=== PATIENT | female | born 1990 | race Caucasian/White ===

== ENCOUNTER 2019-07-16 08:35 | Emergency (ER) | payer OTHER, SELFPAY ==
--- NOTE | ~2019-07-16 | US_ITS ---
EXAMINATION: US OB <=14 wk fetus w TV DATE: 07/16/2019 10:14 INDICATION: Lower abdominal pain TECHNIQUE: Real-time transabdominal and transvaginal obstetric ultrasound. FINDINGS: No prior studies for comparison. The uterus measures 7.8 x 4.7 x 4.8 cm.. There is an intrauterine gestational sac, with pole id entified. The crown rump length measures 1.42 cm, which correlates with a estimated gestational age of 6 weeks 1 day. heart tones are identified measuring 114 BPM.there is a small subchorionic hemorrhage measuring 2.3 x 1 x 0.3 cm. IMPRESSION: 1. SL IUP with an EGA of 6 weeks, 1 days (EDC by current ultrasound of 03/09/2020). 2: Small subchorionic hemorrhage. Reviewed, dictated and finalized at location A. IMPRESSION: 1. SL IUP with an EGA of 6 weeks, 1 days (EDC by current ultrasound of 03/09/20 20). 2: Small subchorionic hemorrhage.
[2019-07-16 08:47] VITALS: BP 150/88; PULSE 115; RESP 20; TEMP 36.7; O2SAT 100
--- NOTE | 2019-07-16 09:04 | ED.PREGNANCY ---
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 cramping Time Seen by Provider: 07/16/19 08:47 Source: patient Mode of arrival: ambulatory Limitations: no limitations History of Present Illness HPI Narrative: A 28 y/o female presents to the ED with c/o possible . Pt states that she took 3 tests yesterday and they all came back positive. Her LNMP was on 06/20/19. She notes that for the last month she has had severe diffuse ABD cramping that is most intense in her right side. Pt has not had an DIGITAL SALES EXECUTIVE appointment, but the patient has seen Dr. Whittington previously and has plans to make an appointment with her. She reports vaginal discharge, breast tenderness, breast swelling, and N/V, but denies vaginal bleeding, sore throat, rhinorrhea, cough, and congestion. The vaginal discharge is described as clear. She is 1 Para 0. Complaint: other (possible ) Onset (ago): month(s) (1) Pain Consistency: constant Location: abdomen Severity: severe Quality: Cramping Associated symptoms: nausea, vomiting, vaginal discharge (clear), abdominal pain (severe cramping) and other (breast tenderness, breast swelling) Vaginal discharge: clear Vaginal bleeding: none Date of Last Menstrual Period: 06/20/19 Patient : Yes Related Data : 1 Para: 0 Home Medications Medication Instructions Recorded Confirmed No Home Medications 07/16/19 07/16/19 Allergies Allergy/AdvReac Type Severity Reaction Status Date / Time sulfamethoxazole Allergy Unknown Rash Verified 07/16/19 08:54 trimethoprim Allergy Unknown Rash Verified 07/16/19 08:54 Review of Systems Review of Systems: All systems reviewed & are unremarkable except as noted in HPI and below ENT: Denies nasal congestion, Denies nasal discharge and Denies sore throat Respiratory: Respiratory: Denies cough Gastrointestinal: Gastrointestinal: Reports abdominal pain (severe cramping), Reports nausea and Reports vomiting Genitourinary: Genitourinary: Denies abnormal vaginal bleeding and Reports vaginal discharge (clear) Integumentary/Breasts: Skin/Breast: Reports breast swelling and Reports breast pain PMFSH Past Medical History Medical History (Updated 07/16/19 @ 11:03 by Maame Hope MD) Sphincter of Oddi dysfunction Surgical History Surgical History (Updated 07/16/19 @ 09:06 by Rosa Callahan) History of biliary duct stent placement History of cholecystectomy Social History Social History (Updated 07/16/19 @ 09:06 by Rosa Callahan) Gender identity (if verbalized by the patient): Female Exam Const: General: cooperative, no acute distress and alert Nutritional Appearance: well nourished Orientation/consciousness: patient oriented x3 Limitations: no limitations HENMT: Mouth: Yes lip normal and Yes moist mucous membranes Resp: Effort & Inspection: normal respiratory effort Auscultation: clear to auscultation bilaterally Cardio: Rate: regular rate Rhythm: regular rhythm GI: GI Palp: Yes Soft to palpation and Yes Tenderness to palpation present (GI) (mild suprapubic) Auscultation: normal bowel sounds : OB/external & speculum: Deferred OB/external & speculum exam Skin: General skin exam: normal color Neuro: General: patient oriented x3 Cognition (Neuro): normal cognition Speech: normal speech Extrem: General: normal to inspection, full ROM and no clubbing, cyanosis or edema Psych: Mental Status: mental status grossly normal Affect: normal affect Attitude: cooperative Course Course Emergency Course: Patient presents with pelvic cramping and positive test. Exam benign aside from mild suprapubic tenderness. Patient with findings of intrauterine and small subchorionic hematoma. Patient advised to follow-up with DIGITAL SALES EXECUTIVE for further care. Vital Signs Vital signs: Vital Signs Temperature 98.1 F 07/16/19 08:47 Pulse Rate 115 H 07/16/19 08:47 Respiratory
[2019-07-16 09:11] LABS: Add Urine Microscopic? YES; Appearance Urine Cloudy (Clear); Bacteria Urine Trace /hpf; Bilirubin Urine Negative (Negative); Blood Urine Negative (Negative); Color Urine Yellow (Yellow); Glucose Urine UA Negative (Negative); Ketones Urine Negative (Negative); Leukocyte Esterase Ur Trace LEU/UL (Negative); Mucus Urine Few /lpf; Nitrate Urine Negative (Negative); Protein Urine 1+ mg/dL (Negative); Squamous Epithelial Cell Urine Many /hpf (Few); Urobilinogen Urine Negative mg/dL (<2.0)
[2019-07-16 09:14] LABS: Specific Grav Ur 1.034 (1.001-1.035)
[2019-07-16 09:22] LABS: Basophils Percent Auto 0.2 % (0.2-1.2); Eosinophils Percent Auto 0.1 % (0-4.4); Hematocrit 39.6 % (37.0-47.0); Hemoglobin 13.5 g/dL (12.0-15.0); Immature Granulocyte Absolute 0.05 K/mm3 (0.00-0.031); Immature Granulocyte Percent A 0.3 % (0-0.5); Lymphocytes Absolute Auto 1.36 K/mm3 (0.9-3.2); Lymphocytes Percent Auto 9.1 % (18.3-44.2); Mean Corpuscular HGB Conc 34.1 g/dl (32-36); Mean Corpuscular Hemoglobin 30.8 pg (26-34); Mean Corpuscular Volume 90.2 fl (80-100); Mean Platelet Volume 9.9 fl (7.4-10.4); Monocytes Absolute Auto 0.5 K/mm3 (0.1-0.6); Monocytes Percent Auto 3.5 % (2.6-8.5); Neutrophils Percent Auto 86.8 % (45.5-73.1); Platelet Count Result 268 k/mm3 (150-375); Red Blood Count 4.39 M/mm3 (4.2-5.4); Red Cell Distribution Width 11.9 % (11.5-14.5)
[2019-07-16 11:24] VITALS: BP 133/68; PULSE 92; RESP 19; O2SAT 100
== END 2019-07-16 11:24 | disposition home or self-care (01) ==
PROVIDERS: Emergency Provider Emergency Medicine; PCP Family Medicine
DX: O46.8X1 Other antepartum hemorrhage, first trimester (principal); Z3A.01 Less than 8 weeks gestation of pregnancy
CPT/HCPCS: 36415; 76801; 76817; 81001; 81025; 84702; 85025; 86850; 86900; 86901; 99284

== ENCOUNTER 2019-09-12 14:56 | Emergency (ER) | payer OTHER, SELFPAY ==
[2019-09-12 15:04] VITALS: BP 141/90; PULSE 113; RESP 16; TEMP 36.9; O2SAT 96
[2019-09-12 15:22] LABS: Basophils Percent Auto 0.1 % (0.2-1.2); Hematocrit 37.4 % (37.0-47.0); Hemoglobin 13.3 g/dL (12.0-15.0); Immature Granulocyte Absolute 0.08 K/mm3 (0.00-0.031); Immature Granulocyte Percent A 0.4 % (0-0.5); Lymphocytes Absolute Auto 1.98 K/mm3 (0.9-3.2); Lymphocytes Percent Auto 9.4 % (18.3-44.2); Mean Corpuscular HGB Conc 35.6 g/dl (32-36); Mean Corpuscular Hemoglobin 31.5 pg (26-34); Mean Corpuscular Volume 88.6 fl (80-100); Mean Platelet Volume 10.2 fl (7.4-10.4); Monocytes Absolute Auto 0.8 K/mm3 (0.1-0.6); Monocytes Percent Auto 3.6 % (2.6-8.5); Neutrophils Absolute Auto 18.2 K/mm3 (1.3-6.7); Neutrophils Percent Auto 86.5 % (45.5-73.1); Platelet Count Result 257 k/mm3 (150-375); Red Blood Count 4.22 M/mm3 (4.2-5.4); Red Cell Distribution Width 12.2 % (11.5-14.5); White Blood Count 21.1 K/mm3 (4.5-10.0)
[2019-09-12 15:34] LABS: Alanine Aminotransferase 17 U/L (4-35); Albumin Level 4.3 g/dL (3.5-5.1); Alkaline Phosphatase 75 U/L (38-126); Aspartate Amino Transferase 22 U/L (14-36); Bilirubin,Total 0.3 mg/dL (0.2-1.3); Blood Urea Nitrogen 7 mg/dL (7-17); Calcium 8.9 mg/dL (8.4-10.2); Carbon Dioxide 21 mmol/L (22-30); Chloride 101 mmol/L (98-107); Estimated CRCL calculation 116 ml/min; Estimated Glomerular Filt Rate > 60; Glucose 93 mg/dL (65-105); Lipase 67 U/L (23-300); Potassium 3.3 mmol/L (3.4-5.0); Sodium 133 mmol/L (137-145)
[2019-09-12] MEDS: DEXTROSE 5%/LACTATED RINGERS 1,000 ML 100 ML IV CONT (15:37)
[2019-09-12] MEDS: PROCHLORPERAZINE EDISYLATE 10 MG/2 ML VIAL IV PUSH (15:38)
[2019-09-12] MEDS: FAMOTIDINE 20 MG/2 ML VIAL IV PUSH (15:38)
[2019-09-12 15:41] LABS: Add Urine Microscopic? YES; Appearance Urine Cloudy (Clear); Bacteria Urine 1+ /hpf; Bilirubin Urine Negative (Negative); Blood Urine Negative (Negative); Color Urine Yellow (Yellow); Glucose Urine UA Negative (Negative); Ketones Urine 2+ mg/dL (Negative); Leukocyte Esterase Ur 2+ LEU/UL (Negative); Mucus Urine Heavy /lpf; Nitrate Urine Negative (Negative); Protein Urine 2+ mg/dL (Negative); Renal Epithelial Cells Urine Rare /hpf (None Seen); Specific Grav Ur 1.026 (1.001-1.035); Squamous Epithelial Cell Urine Many /hpf (Few)
--- NOTE | 2019-09-12 15:59 | ED.GENADULT ---
HPI - General Adult General Chief complaint: Nausea/Vomiting/Diarrhea <Erasto Beasley PA-C - Last Filed: 09/12/19 16:15> Stated complaint: , vomiting <Erasto Beasley PA-C - Last Filed: 09/12/19 16:15> Time Seen by Provider: 09/12/19 15:10 <Erasto Beasley PA-C - Last Filed: 09/12/19 16:15> Source: patient <Erasto Beasley PA-C - Last Filed: 09/12/19 16:15> Mode of arrival: ambulatory <Erasto Beasley PA-C - Last Filed: 09/12/19 16:15> Limitations: no limitations <Erasto Beasley PA-C - Last Filed: 09/12/19 16:15> History of Present Illness HPI narrative: Patient is a 28-year-old female who presents with nausea and vomiting that is been present for the last several days noting that she cannot keep anything down despite the Zofran prescribed by her farm crops teacher noting she is 14 weeks per ultrasound is followed by Dr. Tonya Bruce. Patient is G1, P0. Patient denies any pain on arrival specifically no pelvic pain cramping vaginal bleeding or discharge. Patient has seen Dr. Tonya Bruce for this was prescribed Zofran. Patient presents per private vehicle <Erasto Beasley PA-C - Last Filed: 09/12/19 16:15> Related Data Home medications: Home Medications Medication Instructions Recorded Confirmed 1 tablet PO DAILY 09/12/19 ondansetron HCl 4 mg PO DAILY 09/12/19 <Erasto Beasley PA-C - Last Filed: 09/12/19 16:15> Allergies/adverse reactions: Allergies Allergy/AdvReac Type Severity Reaction Status Date / Time sulfamethoxazole Allergy Unknown Rash Verified 07/16/19 08:54 trimethoprim Allergy Unknown Rash Verified 07/16/19 08:54 <Erasto Beasley PA-C - Last Filed: 09/12/19 16:15> Review of Systems Review of Systems: All systems reviewed & are unremarkable except as noted in HPI and below <Erasto Beasley PA-C - Last Filed: 09/12/19 16:15> PMFSH Past Medical History Medical History: Medical History Sphincter of Oddi dysfunction <Erasto Beasley PA-C - Last Filed: 09/12/19 16:15> Surgical History Surgical History: Surgical History History of biliary duct stent placement History of cholecystectomy <Erasto Beasley PA-C - Last Filed: 09/12/19 16:15> Social History Social History: Social History Gender identity (if verbalized by the patient): Female <Erasto Baesley PA-C - Last Filed: 09/12/19 16:15> Exam Narrative: Exam Narrative: GENERAL: Well-appearing, well-nourished, and in no acute distress. HEAD: Normocephalic, atraumatic. EYES: PERRLA and EOMI. ENT: Nares clear, no rhinorrhea or epistaxis. Mucous membranes moist. CHEST: Clear to auscultation. No respiratory distress. No wheezes rales or rhonchi HEART: Regular rate and rhythm. No murmur heard. Normal peripheral pulses. ABDOMEN: Soft, nontender, nondistended EXTREMITIES: Normal range of motion. No edema. SKIN: Warm, dry, no rash. NEURO: No focal deficits. Alert and oriented x3. Cranial nerves II through XII grossly intact PSYCH: Normal mood and affect. <Erasto Beasley PA-C - Last Filed: 09/12/19 16:15> Course Course Emergency Course: Patient in the room in no distress aware of case findings treatment plan and diagnosis agreeing to follow-up as directed or to return if symptoms worsen or concerns <Erasto Beasley PA-C - Last Filed: 09/12/19 16:15> Consultations Consultation #1: Spoke with Dr. Donohue PASTE UP ARTIST who will follow patient in clinic <Erasto Beasley PA-C - Last Filed: 09/12/19 16:15> Date: 09/12/19 <Erasto Beasley PA-C - Last Filed: 09/12/19 16:15> Time: 16:14 <Erasto Beasley PA-C - Last Filed: 09/12/19 16:15> Vital Signs Vital signs: Vital Signs Temperature 36.9 C 09/12/19 15:04 Pulse Rate 113 H
== END 2019-09-12 16:18 | disposition left against medical advice (07) ==
PROVIDERS: Emergency Medicine Emergency Medical Services; Emergency Provider Emergency Medicine; PCP Family Medicine
DX: O99.282 Endocrine, nutritional and metabolic diseases complicating pregnancy, second trimester (principal); E86.0 Dehydration; O21.9 Vomiting of pregnancy, unspecified; Z3A.14 14 weeks gestation of pregnancy
CPT/HCPCS: 36415; 80053; 81001; 83690; 85025; 87086; 87088; 96361; 96374; 96375; 99284; J0780; J1200; J7121

== ENCOUNTER 2020-02-07 13:53 | Outpatient (RCR) | payer OTHER, SELFPAY ==
[2019-12-29] MEDS: RHO(D) IMMUNE GLOBULIN 300 MCG SYRINGE IM (16:34)
[2020-01-19 10:49] VITALS: BP 117/77; PULSE 96
[2020-01-26 16:59] VITALS: BP 111/85; PULSE 80
[2020-02-02 16:12] VITALS: BP 122/82; PULSE 94
[2020-02-07 14:29] LABS: Basophils Percent Auto 0.3 % (0.2-1.2); Eosinophils Percent Auto 0.2 % (0-4.4); Hematocrit 35.5 % (37.0-47.0); Hemoglobin 12.2 g/dL (12.0-15.0); Immature Granulocyte Absolute 0.16 K/mm3 (0.00-0.031); Immature Granulocyte Percent A 1.1 % (0-0.5); Lymphocytes Absolute Auto 1.74 K/mm3 (0.9-3.2); Lymphocytes Percent Auto 12.2 % (18.3-44.2); Mean Corpuscular HGB Conc 34.4 g/dl (32-36); Mean Corpuscular Volume 90.3 fl (80-100); Mean Platelet Volume 11.8 fl (7.4-10.4); Monocytes Absolute Auto 0.5 K/mm3 (0.1-0.6); Monocytes Percent Auto 3.4 % (2.6-8.5); Neutrophils Absolute Auto 11.8 K/mm3 (1.3-6.7); Neutrophils Percent Auto 82.8 % (45.5-73.1); Platelet Count Result 230 k/mm3 (150-375); Red Blood Count 3.93 M/mm3 (4.2-5.4); Red Cell Distribution Width 13.4 % (11.5-14.5); White Blood Count 14.2 K/mm3 (4.5-10.0)
[2020-02-07 14:43] LABS: Alanine Aminotransferase 40 U/L (4-35); Albumin Level 3.3 g/dL (3.5-5.1); Alkaline Phosphatase 281 U/L (38-126); Anion Gap 9 mmol/L (8-16); Aspartate Amino Transferase 30 U/L (14-36); Bilirubin,Total 0.2 mg/dL (0.2-1.3); Blood Urea Nitrogen 7 mg/dL (7-17); Calcium 8.8 mg/dL (8.4-10.2); Carbon Dioxide 20 mmol/L (22-30); Chloride 107 mmol/L (98-107); Estimated Glomerular Filt Rate > 60; Glucose 114 mg/dL (65-105); Potassium 3.9 mmol/L (3.4-5.0); Sodium 136 mmol/L (137-145); Uric Acid 4.8 mg/dL (2.5-7.5)
[2020-02-07 14:46] LABS: Add Urine Microscopic? YES; Amorphous Sediment Urine Few; Appearance Urine Cloudy (Clear); Bacteria Urine Trace /hpf; Bilirubin Urine Negative (Negative); Blood Urine Negative (Negative); Color Urine Yellow (Yellow); Creatinine Urine 85.8 mg/dL; Glucose Urine UA Negative (Negative); Ketones Urine Negative (Negative); Leukocyte Esterase Ur Trace LEU/UL (NEGATIVE); Mucus Urine Rare /lpf; Nitrate Urine Negative (Negative); Protein Urine Negative (Negative); RBC Urine 0-2 /hpf (0-2); Specific Grav Ur 1.014 (1.001-1.035); Squamous Epithelial Cell Urine Moderate /hpf (Few); Total Protein Urine Random 15 mg/dL; Urobilinogen Urine Negative mg/dL (<2.0); WBC Urine 0-3 /hpf (0-3)
[2020-02-07 14:55] VITALS: BP 128/89; PULSE 91
== END 2020-02-15 07:46 | disposition home or self-care (01) ==
LOC: ANHOBOP 13:53
PROVIDERS: PCP Family Medicine; Visit Provider Obstetrics & Gynecology
DX: O36.0990 Maternal care for other rhesus isoimmunization, unspecified trimester, not applicable or unspecified (principal); Z3A.00 Weeks of gestation of pregnancy not specified
CPT/HCPCS: 36415; 59025; 80053; 81001; 82570; 84156; 84550; 85025; 85461; 87086; 87088; 90384; 96372; J2790

== ENCOUNTER 2020-02-12 06:45 | Inpatient (IN) | payer OTHER, SELFPAY ==
[2020-02-12] VITALS (101 sets, daily range): BP systolic 110–160; BP diastolic 45–102; PULSE 60–122; RESP 16; TEMP 36.2–37.3; O2SAT 94–100; BMI 25.0
--- NOTE | 2020-02-12 06:54 | P.HP_ITS ---
H&P: HPI History of Present Illness Date/Time: 02/12/20 06:54 Chief complaint: Induction of Labor Narrative: Jillian Valle is a 29 year old female whose last menstrual period was 06/16/2019, EDC is 03/10/2020, confirmed by 6 week ultrasound presents at 36 and 2 7 weeks gestation for induction of labor. She has cholestasis of and has been followed with testing. Her blood pressures have been elevated as well and PIH labs are pending at this point. Risks and benefits of induction reviewed Review of Systems Review of Systems: All systems reviewed & are unremarkable except as noted in HPI and below PMFSH Past Medical History Medical History Sphincter of Oddi dysfunction Surgical History Surgical History History of biliary duct stent placement History of cholecystectomy Family History Family History Other No pertinent family history Social History Social History Gender identity (if verbalized by the patient): Male Spiritual care concerns: No Meds Home Medications and Allergies Home Medications Medication Instructions Recorded Confirmed Type PNV cmb#95-ferrous fumarate-FA 1 tablet PO DAILY 01/19/20 02/09/20 History [] acetaminophen [Tylenol] 325 mg PO Q4H PRN 01/19/20 02/09/20 History diphenhydramine HCl [Benadryl] 25 mg PO Q6H PRN 01/19/20 02/09/20 History hydroxyzine pamoate [Vistaril] 25 mg PO HS PRN 01/19/20 02/09/20 History Allergies Allergy/AdvReac Type Severity Reaction Status Date / Time sulfamethoxazole Allergy Unknown Rash Verified 07/16/19 08:54 trimethoprim Allergy Unknown Rash Verified 07/16/19 08:54 Exam Const: General: no acute distress Eyes: General: appearance normal, both eyes and all related structures Neck: Neck: supple and no JVD Thyroid: thyroid normal Resp: Effort & Inspection: normal respiratory effort Auscultation: clear to auscultation bilaterally Cardio: Rate: regular rate Rhythm: regular rhythm GI: Inspection: non-distended GI Palp: Yes Soft to palpation, No Tenderness to palpation present (GI) and No Guarding due to palpation present (GI) Auscultation: normal bowel sounds : General: Yes other ( gravid soft uterus) External Female Exam: normal external appearance Speculum Exam - Vagina: normal appearance of the vagina Other: heart tones reassuring Skin: General skin exam: no rashes or lesions noted Extrem: General: normal to inspection and no edema Psych: Mental Status: mental status grossly normal Affect: normal affect Assessment and Plan Additional Plan impression: 36 and 2 7th weeks gestation with cholestasis of and signs of -induced hypertension Plan: Medical induction of labor. Spontaneous vaginal liver is expected. She has an epidural candidate. [facility] labs are pending
--- NOTE | 2020-02-12 07:06 | PM.OBPNVD ---
OB - PN: Subj Subjective Date/time seen: 02/12/20 07:06 cx 3.5/80/-1 arom clear fhts reasurinng OB - PN A/P Time Spent With Patient Time: Total time spent is greater than 50% in coordination of care (as documented) at patient's floor/unit and/or counseling patient:
--- NOTE | 2020-02-12 07:17 | LDADM ---
This patient, Jillian Valle, was admitted to Labor/Delivery/Recovery 103 on 02/12/20 at 06:45. Plans for labor, pain management and were discussed with patient. Patient/family oriented to hospital policies and general routines including ID bracelet, bed and alarms, visiting hours, pain management, procedures, bathroom and other care routines, personal items, smoking policy, room service/diet and guest tray routines, security routines, and visiting hours. Patient/Family are encouraged to report perceived risks to care and to ask questions if they do not understand what they are told or what they should do. See [facility] for further documentation.
[2020-02-12 07:27] LABS: Basophils Percent Auto 0.3 % (0.2-1.2); Eosinophils Percent Auto 0.3 % (0-4.4); Hematocrit 38.1 % (37.0-47.0); Immature Granulocyte Absolute 0.15 K/mm3 (0.00-0.031); Immature Granulocyte Percent A 1.2 % (0-0.5); Lymphocytes Absolute Auto 2.02 K/mm3 (0.9-3.2); Lymphocytes Percent Auto 15.6 % (18.3-44.2); Mean Corpuscular HGB Conc 34.1 g/dl (32-36); Mean Platelet Volume 11.4 fl (7.4-10.4); Monocytes Absolute Auto 0.6 K/mm3 (0.1-0.6); Monocytes Percent Auto 4.8 % (2.6-8.5); Neutrophils Absolute Auto 10.1 K/mm3 (1.3-6.7); Neutrophils Percent Auto 77.8 % (45.5-73.1); Platelet Count Result 266 k/mm3 (150-375); Red Blood Count 4.33 M/mm3 (4.2-5.4); Red Cell Distribution Width 13.2 % (11.5-14.5)
[2020-02-12] MEDS: LACTATED RINGERS 1,000 ML 125 ML IV CONT ×3 (07:32→12:54)
[2020-02-12] MEDS: OXYTOCIN 30 UNITS/NS 500 ML 30 UNITS/500 ML BAG IV CONT (07:33)
[2020-02-12] MEDS: AMPICILLIN 2 GM/NS 100 ML 2 GM/100 ML BAG IVPB (07:33)
[2020-02-12 07:38] LABS: Alanine Aminotransferase 31 U/L (4-35); Albumin Level 3.7 g/dL (3.5-5.1); Alkaline Phosphatase 342 U/L (38-126); Anion Gap 9 mmol/L (8-16); Aspartate Amino Transferase 24 U/L (14-36); Bilirubin,Total 0.3 mg/dL (0.2-1.3); Blood Urea Nitrogen 9 mg/dL (7-17); Calcium 9.1 mg/dL (8.4-10.2); Carbon Dioxide 20 mmol/L (22-30); Chloride 106 mmol/L (98-107); Estimated Glomerular Filt Rate > 60; Glucose 101 mg/dL (65-105); Potassium 4.3 mmol/L (3.4-5.0); Sodium 135 mmol/L (137-145)
[2020-02-12 07:40] LABS: Uric Acid 4.5 mg/dL (2.5-7.5)
[2020-02-12 07:44] LABS: Amphetamine Screen Urine Negative (Negative); Barbiturate Screen Urine Negative (Negative); Benzodiazepines Screen Urine Negative (Negative); Cannabinoid Screen Urine Positive (Negative); Cocaine Screen Urine Negative (Negative); Methadone Screen Urine Negative (Negative); Opiate Screen Urine Negative (Negative); Phencyclidine Screen Urine Negative (Negative)
[2020-02-12] MEDS: fentaNYL CITRATE INJ (*CRX) 100 MCG/2 ML VIAL 50 MCG IV PUSH (08:16)
[2020-02-12 08:19] LABS: HIV 1/2 Ab P24 Ag Result Negative (Negative)
[2020-02-12 08:22] LABS: Rapid Plasma Reagin Non-Reactive (NonReactive)
[2020-02-12] MEDS: fentaNYL CITRATE INJ (*CRX) 100 MCG/2 ML VIAL IV PUSH (09:25)
--- NOTE | 2020-02-12 10:09 | WPDANESEPP ---
Anes - Eval Pre Procedure Procedure: Labor Epidural Date/Time: 02/12/20 10:09 Surgeon: Juanita Preop Diagnosis: Labor Pain Pre Op Diagnosis: Induction of Labor Patient Data Age: 29 Gender: F Height: Weight: Last Vital Signs Temp 36.2 C L 02/12/20 09:54 Pulse 73 02/12/20 10:07 BP 129/82 02/12/20 10:07 Pulse Ox 99 02/12/20 10:07 Allergies Allergy/AdvReac Type Severity Reaction Status Date / Time sulfamethoxazole Allergy Unknown Rash Verified 07/16/19 08:54 trimethoprim Allergy Unknown Rash Verified 07/16/19 08:54 Home Medications Medication Instructions Recorded Confirmed Type PNV cmb#95-ferrous fumarate-FA 1 tablet PO DAILY 01/19/20 02/09/20 History [] acetaminophen [Tylenol] 325 mg PO Q4H PRN 01/19/20 02/12/20 History diphenhydramine HCl [Benadryl] 25 mg PO Q6H PRN 01/19/20 02/12/20 History hydroxyzine pamoate [Vistaril] 25 mg PO HS PRN 01/19/20 02/12/20 History Laboratory Tests 02/12/20 02/12/20 02/12/20 07:10 07:10 07:11 WBC RBC Hgb Hct MCV MCH MCHC RDW Plt Count MPV Immature Gran % (Auto) Neut % (Auto) Lymph % (Auto) [place] % (Auto) Eos % (Auto) Baso % (Auto) Lymph # (Auto) [place] # (Auto) Eos # (Auto) Baso # (Auto) Abs Immat Gran (auto) Absolute Neuts (auto) Absolute Nucleated RBC Nucleated RBC % Sodium 135 mmol/L L mmol/L (137-145) Potassium 4.3 mmol/L mmol/L (3.4-5.0) Chloride 106 mmol/L mmol/L (98-107) Carbon Dioxide 20 mmol/L L mmol/L (22-30) Anion Gap 9 mmol/L mmol/L (8-16) BUN 9 mg/dL mg/dL (7-17) Creatinine 0.60 mg/dL L mg/dL (0.7-1.0) Estim Creat Clear Calc Not Reportable Estimated GFR > 60 (59 - ) Glucose 101 mg/dL mg/dL (65-105) Uric Acid 4.5 mg/dL mg/dL (2.5-7.5) Calcium 9.1 mg/dL mg/dL (8.4-10.2) Total Bilirubin 0.3 mg/dL mg/dL (0.2-1.3) AST 24 U/L U/L (14-36) ALT 31 U/L U/L (4-35) Alkaline Phosphatase 342 U/L H U/L (38-126) Total Protein 7.0 g/dL g/dL (6.3-8.2) Albumin 3.7 g/dL g/dL (3.5-5.1) Urine Opiates Screen Urine Methadone Screen Ur Barbiturates Screen Ur Phencyclidine Scrn Ur Amphetamine Screen U Benzodiazepines Scrn Urine Cocaine Screen U Cannabinoids Screen RPR HIV 1&2 Ab/P24 Ag 4thGn Negative (Negative) Blood Type Antibody Screen Antibody Identification Antigen Identification DIDIER, IgG Interpret DIDIER, Poly Interpret DIDIER, Complement Interp 02/12/20 02/12/20 02/12/20 07:11 07:11 07:11 WBC 13.0 K/mm3 H K/mm3 (4.5-10.0) RBC 4.33 M/mm3 M/mm3 (4.2-5.4) Hgb 13.0 g/dL g/dL (12.0-15.0) Hct 38.1 % % (37.0-47.0) MCV 88.0 fl fl (80-100) MCH 30.0 pg pg (26-34) MCHC 34.1 g/dl g/dl (32-36) RDW 13.2 % % (11.5-14.5) Plt Count 266 k/mm3 k/mm3 (150-375) MPV 11.4 fl H fl (7.4-10.4) Immature Gran % (Auto) 1.2 % H % (0-0.5) Neut % (Auto) 77.8 % H % (45.5-73.1) Lymph % (Auto) 15.6 % L % (18.3-44.2) [place] % (Auto) 4.8 % % (2.6-8.5) Eos % (Auto) 0.3 % % (0-4.4) Baso % (Auto) 0.3 % % (0.2-1.2) Lymph # (Auto) 2.02 K/mm3 K/mm3 (0.9-3.2) [place] # (Auto) 0.6 K/mm3 K/mm3 (0.1-0.6) Eos # (Auto) 0.0 K/mm3 K/mm3 (0-0.3) Baso # (Auto) 0.0 K/mm3 K/mm3
[2020-02-12] MEDS: ONDANSETRON INJ 4 MG/2 ML VIAL IV PUSH ×2 (12:52→19:55)
--- NOTE | 2020-02-12 14:29 | PM.OBPNVD ---
OB - PN: Subj Subjective Date/time seen: 02/12/20 14:29 cx complete fhts ok OB - PN: Obj Data Labs CBC & Chem 7: 02/12/20 07:11 02/12/20 07:10 Labs: Laboratory Results - last 24 hr 02/12/20 02/12/20 02/12/20 07:10 07:10 07:11 WBC RBC Hgb Hct MCV MCH MCHC RDW Plt Count MPV Immature Gran % (Auto) Neut % (Auto) Lymph % (Auto) [place] % (Auto) Eos % (Auto) Baso % (Auto) Lymph # (Auto) [place] # (Auto) Eos # (Auto) Baso # (Auto) Abs Immat Gran (auto) Absolute Neuts (auto) Absolute Nucleated RBC Nucleated RBC % Sodium 135 L Potassium 4.3 Chloride 106 Carbon Dioxide 20 L Anion Gap 9 BUN 9 Creatinine 0.60 L Estim Creat Clear Calc Not Reportable Estimated GFR > 60 Glucose 101 Uric Acid 4.5 Calcium 9.1 Total Bilirubin 0.3 AST 24 ALT 31 Alkaline Phosphatase 342 H Total Protein 7.0 Albumin 3.7 Urine Opiates Screen Urine Methadone Screen Ur Barbiturates Screen Ur Phencyclidine Scrn Ur Amphetamine Screen U Benzodiazepines Scrn Urine Cocaine Screen U Cannabinoids Screen RPR HIV 1&2 Ab/P24 Ag 4thGn Negative Blood Type Antibody Screen Antibody Identification Antigen Identification DIDIER, IgG Interpret DIDIER, Poly Interpret DIDIER, Complement Interp 02/12/20 02/12/20 02/12/20 07:11 07:11 07:11 WBC 13.0 H RBC 4.33 Hgb 13.0 Hct 38.1 MCV 88.0 MCH 30.0 MCHC 34.1 RDW 13.2 Plt Count 266 MPV 11.4 H Immature Gran % (Auto) 1.2 H Neut % (Auto) 77.8 H Lymph % (Auto) 15.6 L [place] % (Auto) 4.8 Eos % (Auto) 0.3 Baso % (Auto) 0.3 Lymph # (Auto) 2.02 [place] # (Auto) 0.6 Eos # (Auto) 0.0 Baso # (Auto) 0.0 Abs Immat Gran (auto) 0.15 H Absolute Neuts (auto) 10.1 H Absolute Nucleated RBC 0.0 Nucleated RBC % 0.0 Sodium Potassium Chloride Carbon Dioxide Anion Gap BUN Creatinine Estim Creat Clear Calc Estimated GFR Glucose Uric Acid Calcium Total Bilirubin AST ALT Alkaline Phosphatase Total Protein Albumin Urine Opiates Screen Urine Methadone Screen Ur Barbiturates Screen Ur Phencyclidine Scrn Ur Amphetamine Screen U Benzodiazepines Scrn Urine Cocaine Screen U Cannabinoids Screen RPR Non-reactive HIV 1&2 Ab/P24 Ag 4thGn Blood Type O Negative Antibody Screen Positive Antibody Identification Passive Due to RH Imm Glob Antigen Identification TNP DIDIER, IgG Interpret Not Performed DIDIER, Poly Interpret Negative DIDIER, Complement Interp Not Performed 02/12/20 07:11 WBC RBC Hgb Hct MCV MCH MCHC RDW Plt Count MPV Immature Gran % (Auto) Neut % (Auto) Lymph % (Auto) [place] % (Auto) Eos % (Auto) Baso % (Auto) Lymph # (Auto) [place] # (Auto) Eos # (Auto) Baso # (Auto) Abs Immat Gran (auto) Absolute Neuts (auto) Absolute Nucleated RBC Nucleated RBC % Sodium Potassium Chloride Carbon Dioxide Anion Gap BUN Creatinine Estim Creat Clear Calc Estimated GFR Glucose Uric Acid Calcium Total Bilirubin AST ALT Alkaline Phosphatase Total Protein Albumin Urine Opiates Screen Negative Urine Methadone Screen Negative Ur Barbiturates Screen Negative Ur Phencyclidine Scrn Negative Ur Amphetamine Screen Negative U Benzodiazepines Scrn Negative Urine Cocaine Screen Negative U Cannabinoids Screen Positive A RPR HIV 1&2 Ab/P24 Ag 4thGn Blood Type Antibody Screen Antibody Identification Antigen Identification DIDIER, IgG Interpret DIDIER, Poly Interpret DIDIER, Complement Interp OB - PN A/P Time Spent With Patient Time: Total time spent is greater than 50% in coordination of care (as documented) at patient's floor/unit and/or counseling patient:
--- NOTE | 2020-02-12 15:52 | PM.OBPRVD ---
OB - Delivery Note Procedure Delivery date: 02/12/20 Procedure: mil/ events: No Care (gest htn/cholestasis) Induction method: AROM Delivery augmentation: pitocin Delivery monitor: external FHT Route of delivery: Episiotomy description: None Laceration description: None Specimen: No Estimated blood loss (mL): 157 Anesthesia type: Epidural Disposition: floor [place] Baby Date of : 02/12/20 Time of : 15:45 Weeks of gestation at delivery: 36 gender: Male presentation: vertex position: Right Occiput Anterior Placenta delivery description: Spontaneous cord vessel description: 3 Vessels score one minute: 9 score five minutes: 9
[2020-02-12] MEDS: OXYTOCIN 30 UNITS/NS 500 ML 30 UNITS/500 ML BAG 125 UNITS IV CONT (16:09)
[2020-02-12] MEDS: IBUPROFEN 600 MG TABLET PO (17:23)
[2020-02-12] MEDS: WITCH HAZEL 40 PADS 1 PAD TOPICAL (17:24)
[2020-02-12] MEDS: BENZOCAINE 20% AER SPR (*SP) 56 GM CAN 1 SPRAY TOPICAL (17:24)
[2020-02-12] MEDS: LORATADINE 10 MG TABLET PO (17:45)
--- NOTE | 2020-02-12 19:19 | OBPPTRN ---
Addendum entered by Roberta Hillman RN 02/12/20 19:20: Transfer of patient occurred at 1833 on 02/12/20 Original Note: Patient transferred to post room #292 in wheelchair. Support person present. Oriented to unit, room, information board, rooming in, admission packet and security measures. Patient verbalizes understanding.
[2020-02-12] MEDS: HYDROcodone/acetaminophen (*CRX) 5-325 MG TABLET 1 TAB PO (19:46)
[2020-02-13] MEDS: HYDROcodone/acetaminophen (*CRX) 5-325 MG TABLET 1 TAB PO (02:18)
[2020-02-13] MEDS: IBUPROFEN 600 MG TABLET PO ×3 (02:18→17:03)
[2020-02-13 06:09] LABS: Hematocrit 31.5 % (37.0-47.0); Hemoglobin 10.8 g/dL (12.0-15.0)
--- NOTE | 2020-02-13 06:49 | PM.OBPNVD ---
OB - PN: Subj Subjective Date/time seen: 02/13/20 06:49 Patient comments: no complaints and pain well controlled baby status: doing well OB - PN: Obj Data Labs CBC & Chem 7: 02/13/20 05:31 02/12/20 07:10 Labs: Laboratory Results - last 24 hr 02/12/20 02/12/20 02/12/20 07:10 07:10 07:11 WBC RBC Hgb Hct MCV MCH MCHC RDW Plt Count MPV Immature Gran % (Auto) Neut % (Auto) Lymph % (Auto) [place] % (Auto) Eos % (Auto) Baso % (Auto) Lymph # (Auto) [place] # (Auto) Eos # (Auto) Baso # (Auto) Abs Immat Gran (auto) Absolute Neuts (auto) Absolute Nucleated RBC Nucleated RBC % Sodium 135 L Potassium 4.3 Chloride 106 Carbon Dioxide 20 L Anion Gap 9 BUN 9 Creatinine 0.60 L Estim Creat Clear Calc Not Reportable Estimated GFR > 60 Glucose 101 Uric Acid 4.5 Calcium 9.1 Total Bilirubin 0.3 AST 24 ALT 31 Alkaline Phosphatase 342 H Total Protein 7.0 Albumin 3.7 Urine Opiates Screen Urine Methadone Screen Ur Barbiturates Screen Ur Phencyclidine Scrn Ur Amphetamine Screen U Benzodiazepines Scrn Urine Cocaine Screen U Cannabinoids Screen RPR HIV 1&2 Ab/P24 Ag 4thGn Negative Blood Type Antibody Screen Antibody Identification Antigen Identification DIDIER, IgG Interpret DIDIER, Poly Interpret DIDIER, Complement Interp 02/12/20 02/12/20 02/12/20 07:11 07:11 07:11 WBC 13.0 H RBC 4.33 Hgb 13.0 Hct 38.1 MCV 88.0 MCH 30.0 MCHC 34.1 RDW 13.2 Plt Count 266 MPV 11.4 H Immature Gran % (Auto) 1.2 H Neut % (Auto) 77.8 H Lymph % (Auto) 15.6 L [place] % (Auto) 4.8 Eos % (Auto) 0.3 Baso % (Auto) 0.3 Lymph # (Auto) 2.02 [place] # (Auto) 0.6 Eos # (Auto) 0.0 Baso # (Auto) 0.0 Abs Immat Gran (auto) 0.15 H Absolute Neuts (auto) 10.1 H Absolute Nucleated RBC 0.0 Nucleated RBC % 0.0 Sodium Potassium Chloride Carbon Dioxide Anion Gap BUN Creatinine Estim Creat Clear Calc Estimated GFR Glucose Uric Acid Calcium Total Bilirubin AST ALT Alkaline Phosphatase Total Protein Albumin Urine Opiates Screen Urine Methadone Screen Ur Barbiturates Screen Ur Phencyclidine Scrn Ur Amphetamine Screen U Benzodiazepines Scrn Urine Cocaine Screen U Cannabinoids Screen RPR Non-reactive HIV 1&2 Ab/P24 Ag 4thGn Blood Type O Negative Antibody Screen Positive Antibody Identification Passive Due to RH Imm Glob Antigen Identification TNP DIDIER, IgG Interpret Not Performed DIDIER, Poly Interpret Negative IDDIER, Complement Interp Not Performed 02/12/20 02/13/20 07:11 05:31 WBC RBC Hgb 10.8 L Hct 31.5 L MCV MCH MCHC RDW Plt Count MPV Immature Gran % (Auto) Neut % (Auto) Lymph % (Auto) [place] % (Auto) Eos % (Auto) Baso % (Auto) Lymph # (Auto) [place] # (Auto) Eos # (Auto) Baso # (Auto) Abs Immat Gran (auto) Absolute Neuts (auto) Absolute Nucleated RBC Nucleated RBC % Sodium Potassium Chloride Carbon Dioxide Anion Gap BUN Creatinine Estim Creat Clear Calc Estimated GFR Glucose Uric Acid Calcium Total Bilirubin AST ALT Alkaline Phosphatase Total Protein Albumin Urine Opiates Screen Negative Urine Methadone Screen Negative Ur Barbiturates Screen Negative Ur Phencyclidine Scrn Negative Ur Amphetamine Screen Negative U Benzodiazepines Scrn Negative Urine Cocaine Screen Negative U Cannabinoids Screen Positive A RPR HIV 1&2 Ab/P24 Ag 4thGn Blood Type Antibody Screen Antibody Identification Antigen Identification DIDIER, IgG Interpret DIDIER, Poly Interpret DIDIER, Complement Interp OB - PN A/P Plan day: 1 P
[2020-02-13 07:35] VITALS: BP 104/65; PULSE 65; RESP 16; TEMP 37.6; O2SAT 98
--- NOTE | 2020-02-13 11:18 | WPDANLDPN2 ---
Anes-Prog Note L&D Date/Time: 02/13/20 11:18 Comfortable throughout: labor and delivery Neuraxial method: epidural Epidural/Spinal procedure site: clean & non-tender Neuro status: Neuro function grossly intact. Cardiovascular status: normal Respiratory status: normal Airway patency: baseline Mental status: baseline Post-Op hydration status: normal Vital Signs: Last Vital Signs Temp 37.6 C 02/13/20 07:35 Pulse 65 02/13/20 07:35 Resp 16 02/13/20 07:35 BP 104/65 02/13/20 07:35 Pulse Ox 98 02/13/20 07:35 Pain score (VAS): 0 I/O: Intake & Output 02/12/20 02/13/20 02/13/20 23:59 07:59 15:59 Intake Total 1500 Output Total 100 Balance 1400 Post-procedural complaints: none Patient feedback: Patient satisfied with anesthetic care.
[2020-02-13] MEDS: TETANUS,DIPHTHERIA,AC PERTUSSIS ADULT (0.5 ML) BOOSTRIX IM (11:43)
--- NOTE | 2020-02-13 14:58 | PCCCNOTE ---
Care Coordination. Pt. referred to CC for positive UDS for marijuana. Met with pt. and FOB at bedside. Pt. reports having all necessary baby care items, and setup with WIC. She reports she plans to return home with FOB. Pt. states she has support from family and her mother lives five minutes away. Pt. reports that she rarely uses marijuana and only uses it for her anxiety. She denies substance abuse information needed. Pt. reports this is her first baby and baby born at 36 weeks. Spoke with Yany Diaz from [facility] Hotline who documented pt's situation and not taking report on situation. Intake ID#[id number]
[2020-02-13] MEDS: DOCUSATE SODIUM 100 MG CAPSULE PO (17:03)
[2020-02-13] MEDS: ACETAMINOPHEN 325 MG TABLET 650 MG PO (19:29)
[2020-02-13 20:00] VITALS: BP 115/79; PULSE 77; RESP 16; TEMP 36.4; O2SAT 100
[2020-02-14] MEDS: IBUPROFEN 600 MG TABLET PO ×2 (03:45→09:19)
--- NOTE | 2020-02-14 06:55 | PM.DS ---
DS: Admitting Diagnosis Admitting Diagnosis Admitting Diagnosis: Induction of Labor Thirty-seven weeks with gestational hypertension Cholestasis of DS: Summary Hospital Course Reason for hospitalization: the patient was admitted with elevated blood pressures at 37 weeks gestation. She underwent spontaneous vaginal delivery of a male infant which was unremarkable. Blood pressures remained stable throughout her stay. She was up, voiding without difficulty eating and generally without complaints. Her hospital course was otherwise unremarkable. She was deemed stable upon discharge Time Spent with Patient Time attestation: Total time spent providing and/or coordinating discharge services: Exam Const: General: no acute distress Eyes: General: appearance normal, both eyes and all related structures Neck: Neck: supple and no JVD Thyroid: thyroid normal Resp: Effort & Inspection: normal respiratory effort Auscultation: clear to auscultation bilaterally Cardio: Rate: regular rate Rhythm: regular rhythm GI: Inspection: non-distended GI Palp: Yes Soft to palpation, No Tenderness to palpation present (GI) and No Guarding due to palpation present (GI) Auscultation: normal bowel sounds : General: Yes bladder normal to palpation External Female Exam: normal external appearance Speculum Exam - Vagina: normal vaginal discharge and No vaginal bleeding Speculum Exam - Cervix: nontender Bimanual exam- vagina & uterus: bladder normal to palpation and No Cervical tenderness present OB/external & speculum: No vaginal bleeding Skin: General skin exam: no rashes or lesions noted Extrem: General: normal to inspection and no edema Psych: Mental Status: mental status grossly normal Affect: normal affect Discharge Plan Discharge Attending physician on discharge: Arturo Alamo Discharging Clinician: Arturo Alamo Patient Disposition: Home, Self-Care Activity: may shower, no straining and pelvic rest Diet: heart healthy Wound Care Instructions: follow printed instructions Patient Instructions: Antibiotic Form, How to Stop Smoking (GEN) Stand Alone Forms: General Discharge Information Follow-up/Referrals: Arturo Alamo MD [Physician] - Discharge Medications: Continued PNV cmb#[id number] fumarate-FA [] 28 mg iron- 800 mcg Tablet 1 tablet PO DAILY RF: 0 acetaminophen [Tylenol] 325 mg Tablet 325 mg PO Q4H PRN (Reason: Pain) RF: 0 diphenhydramine HCl [Benadryl] 25 mg Capsule 25 mg PO Q6H PRN (Reason: Itching) RF: 0 hydroxyzine pamoate [Vistaril] 25 mg Capsule 25 mg PO HS PRN (Reason: Sleep) RF: 0 Date of admission: 02/12/20 06:45 Primary Care Provider: Sonu,Stacy Apple Admitting Provider: Arturo Alamo Attending physician on admission: Arturo Alamo
--- NOTE | 2020-02-14 06:58 | PM.OBPNVD ---
OB - PN: Subj Subjective Date/time seen: 02/14/20 06:58 Patient comments: no complaints and pain well controlled baby status: doing well OB - PN: Obj Data Labs CBC & Chem 7: 02/13/20 05:31 02/12/20 07:10 OB - PN A/P Plan day: 2 Plan: routine care, discharge home and follow up 6 weeks Time Spent With Patient Time: Total time spent is greater than 50% in coordination of care (as documented) at patient's floor/unit and/or counseling patient: Time with patient: less than 15 minutes Review of Systems Review of Systems: All systems reviewed & are unremarkable except as noted in HPI and below Exam Const: General: no acute distress Eyes: General: appearance normal, both eyes and all related structures Neck: Neck: supple and no JVD Thyroid: thyroid normal Resp: Effort & Inspection: normal respiratory effort Auscultation: clear to auscultation bilaterally Cardio: Rate: regular rate Rhythm: regular rhythm GI: Inspection: non-distended GI Palp: Yes Soft to palpation, No Tenderness to palpation present (GI) and No Guarding due to palpation present (GI) Auscultation: normal bowel sounds : General: Yes bladder normal to palpation External Female Exam: normal external appearance Speculum Exam - Vagina: normal vaginal discharge and No vaginal bleeding Speculum Exam - Cervix: nontender Bimanual exam- vagina & uterus: bladder normal to palpation and No Cervical tenderness present OB/external & speculum: No vaginal bleeding Skin: General skin exam: no rashes or lesions noted Extrem: General: normal to inspection and no edema Psych: Mental Status: mental status grossly normal Affect: normal affect
[2020-02-14 07:30] VITALS: BP 134/84; PULSE 65; RESP 16; TEMP 36.6; O2SAT 99
--- NOTE | 2020-02-14 10:17 | PC.NURSE ---
0900 Patient and FOB state they have viewed the discharge video Mother & Baby Care, The First Two Weeks . Patient was given the opportunity and encouraged to ask questions. Patient verbalized understanding of information shared and has been given the mother/baby guide for home reference.
[2020-02-15 11:01] VITALS: BP 137/86; PULSE 82; RESP 20; TEMP 36.9; O2SAT 100
== END 2020-02-14 11:12 | disposition home or self-care (01) | DRG 560 ==
LOC: ANHLDR 06:53 → ANHOB2 19:09
PROVIDERS: Admitting Provider Obstetrics & Gynecology; PCP Family Medicine; Visit Provider Obstetrics & Gynecology
DX: O26.62 Liver and biliary tract disorders in childbirth (principal); O13.4 Gestational [pregnancy-induced] hypertension without significant proteinuria, complicating childbirth; Z3A.36 36 weeks gestation of pregnancy; Z37.0 Single live birth; O99.334 Smoking (tobacco) complicating childbirth; F17.210 Nicotine dependence, cigarettes, uncomplicated
CPT/HCPCS: 36415; 80053; 80307; 84550; 85014; 85018; 85025; 86592; 86703; 86850; 86880; 86900; 86901; 86902; 90715; A9270; G0432; J0290; J2405; J2590; J2795; J3010; J7120

== ENCOUNTER 2020-09-18 14:58 | Outpatient (CLI) | payer OTHER, SELFPAY ==
--- NOTE | ~2020-09-18 | XR_ITS ---
XR lumbar spine 2-3V 09/18/2020 15:14 Indication: Low back pain. No known injury Procedure: 3 views lumbar spine Comparison: 07/07/2015 Findings: Vertebral body heights and disc heights are preserved. No fracture, subluxation or spondylo listhesis. Mild levocurvature of the lumbar spine. There are cholecystectomy clips. Visualized bowel gas pattern is nonobstructive. Sacral foramen are symmetric. Pedicles intact. Impression: 1: No acute abnormality of the lumbar spine. Reviewed, dictated and finalized at location A. Impression: 1: No acute abnormality of the lumbar spine.
== END 2020-09-18 14:59 | disposition home or self-care (01) ==
LOC: ANHIMG 15:01
PROVIDERS: PCP Physician Assistant; Visit Provider Physician Assistant
DX: M54.5 Low back pain (principal)
CPT/HCPCS: 72100

== ENCOUNTER 2022-03-15 09:10 | Emergency (ER) | payer OTHER, SELFPAY ==
--- NOTE | ~2022-03-15 | CT_ITS ---
EXAMINATION: CT thoracic lumbar wo con DATE: 03/15/2022 12:52 INDICATION: Mid to lower back pain post fall TECHNIQUE: High resolution computed tomography (CT) of the thoracic and lumbar spine was performed wi thout intravenous contrast. Additional sagittal and coronal reconstructions were performed. Automated exposure control and iterative reconstruction technique were employed. The dose-length product was 2 76.01 mGy-cm. COMPARISON: None FINDINGS: Alignment is normal. There are 12 bilateral paired ribs, the 12th ribs are relatively hypoplastic. Th ere are also unfused transverse processes bilaterally at L1 with 4 more caudal nonrib-bearing lumbar segments L2-L5. Acute appearing compression fracture along the left anterior superior endplate of L1. With up to 20% left anterior vertebral body height loss and separation of the small fragment along t he anterior rim of the vertebral body. Remaining vertebral body heights are normal. No other fracture s identified. Tiny calcification along the peripheral margin of the disc bulge at T12-L1 suggesting t his is more likely chronic and results in only mild central canal stenosis at this level. Additional mild disc bulges are seen at L2-L3 through L5-S1 also with only minimal to mild central canal stenosi s. Minimal to mild facet osteoarthritis throughout the thoracic and lumbar spine without neural marley inal stenosis. Bilateral sacroiliac joints and visualized portions of the sacrum are normal. Cholecys tectomy clips at the gallbladder fossa. The visualized portions of the superior mediastinum, lungs an d abdominal paravertebral soft tissues are unremarkable. IMPRESSION: 1. Acute mild compression fractures at the right anterior superior endplate of L1. Reviewed, dictated and finalized at location A. [employer]
--- NOTE | ~2022-03-15 | XR_ITS ---
EXAMINATION: XR hip BI 2V w AP pelvis DATE: 03/15/2022 12:34 INDICATION: Bilateral hip pain and posterior sacroiliac pain post fall TECHNIQUE: Anteroposterior view of the pelvis and anteroposterior and frog-leg lateral views of the l eft hip and anteroposterior and frog leg lateral views of the right hip and were obtained. COMPARISON: 07/07/2015 FINDINGS: Alignment is normal. No fracture. Bilateral hip and sacroiliac joint spaces are normal. IMPRESSION: 1. Negative pelvis and bilateral hip radiographs. Reviewed, dictated and finalized at location A. [employer]IAL [employer]
[2022-03-15 09:11] VITALS: BP 136/91; PULSE 63; RESP 18; TEMP 36.7; O2SAT 100
[2022-03-15] MEDS: diazePAM INJ (*CRX) 10 MG/2 ML SYRINGE 5 MG IV PUSH (11:00)
[2022-03-15 11:08] VITALS: BP 130/95; PULSE 68; RESP 18; O2SAT 100
--- NOTE | 2022-03-15 11:10 | ED.BACK ---
HPI - Back Pain/Injury General Chief Complaint: Back Pain/Injury Stated Complaint: back pain Time Seen by Provider: 03/15/22 10:35 Source: patient Mode of arrival: EMS Limitations: no limitations History of Present Illness HPI Narrative: This is a 31-year-old female that presents to the emergency department with back pain after an injury just prior to arrival. Reports she was playing with her son and felt like her back twisted and she fell. She did not hit her head or lose consciousness. Reports that she has had pain in her mid and lower back. Also in her bilateral hips. She has been unable to ambulate due to pain. Denies decreased ROM or numbness. Related Data Home Medications Medication Instructions Recorded Confirmed acetaminophen 325 mg tablet 325 mg PO Q4H PRN Pain 01/19/20 02/12/20 (Tylenol) diphenhydramine HCl 25 mg capsule 25 mg PO Q6H PRN Itching 01/19/20 02/12/20 (Benadryl) hydroxyzine pamoate 25 mg capsule 25 mg PO HS PRN Sleep 01/19/20 02/12/20 (Vistaril) vit no.95-ferrous 1 tablet PO DAILY 01/19/20 02/09/20 fumarate 28 mg-folic acid 800 mcg tablet () Allergies Allergy/AdvReac Type Severity Reaction Status Date / Time sulfamethoxazole Allergy Unknown Rash Verified 03/15/22 09:16 trimethoprim Allergy Unknown Rash Verified 03/15/22 09:16 Review of Systems Review of Systems: CONSTITUTIONAL: Denies fever MUSCULOSKELETAL: Reports back pain, joint pain, and myalgia. NEUROLOGIC: Denies numbness, or weakness. PSYCHIATRIC: Reports anxiety All systems reviewed & are unremarkable except as noted in HPI and below PMFSH Past Medical History Medical History (Updated 03/15/22 @ 14:48 by Jessi Arellano PA-C) History of anxiety History of depression Sphincter of Oddi dysfunction Surgical History Surgical History History of biliary duct stent placement History of cholecystectomy Family History Family History Other No pertinent family history Social History Social History Smoking status: Current every day smoker Tobacco type: cigarettes Gender identity (if verbalized by the patient): Male Spiritual care concerns: No Exam Narrative: GENERAL: Well-appearing, well-nourished, and in no acute distress. HEAD: Normocephalic, atraumatic. EYES: EOMI. CHEST: Clear to auscultation. No respiratory distress. No wheezes rales or rhonchi HEART: Regular rate and rhythm. No murmur heard. Normal peripheral pulses. EXTREMITIES: Normal range of motion. No edema or obvious deformity. Normal DP pulses. Strength equal in bilateral lower extremities (5/5) SKIN: Warm, dry, no rash. NEURO: No focal deficits. Alert and oriented x3. PSYCH: Normal mood and affect Course Vital Signs Vital signs: Vital Signs Temperature 98.0 F 03/15/22 09:11 Pulse Rate 63 03/15/22 09:11 Respiratory Rate 18 03/15/22 09:11 Blood Pressure 136/91 H 03/15/22 09:11 Pulse Oximetry 100 03/15/22 09:11 Oxygen Delivery Room Air 03/15/22 09:11 Temperature 98.0 F 03/15/22 09:11 Pulse Rate 77 03/15/22 13:56 Respiratory Rate 18 03/15/22 13:56 Blood Pressure 99/63 L 03/15/22 13:56 Pulse Oximetry 97 03/15/22 13:56 Oxygen Delivery Room Air 03/15/22 09:11 MDM - Back Pain/Injury MDM Narrative Medical decision making narrative: Patient presents the emergency department after ground-level fall today with bilateral hip pain and back pain. Patient is neurovascularly intact. Hip/pelvis x-ray without acute findings. CT scan of the thoracic and lumbar spine shows a mild compression fracture of L1. Patient was updated on case findings. Will be given follow up with neurosurgery for further management of her compression fracture. Patient received IV Tylenol, Valium and Toradol. She was still having pain so I ord
[2022-03-15] MEDS: KETOROLAC 15 MG/ML VIAL (*BKC) IV PUSH (11:30)
[2022-03-15 13:56] VITALS: BP 99/63; PULSE 77; RESP 18; O2SAT 97
[2022-03-15] MEDS: ONDANSETRON INJ 4 MG/2 ML VIAL IV PUSH (15:15)
[2022-03-15] MEDS: MORPHINE SULFATE (*CRX) 4 MG/ML INJ IV PUSH (15:20)
[2022-03-15 16:19] VITALS: BP 125/85; PULSE 65; RESP 18; O2SAT 100
== END 2022-03-15 16:20 | disposition home or self-care (01) ==
PROVIDERS: Emergency Provider Emergency Medicine; PCP Physician Assistant
DX: S32.010A Wedge compression fracture of first lumbar vertebra, initial encounter for closed fracture (principal); F17.210 Nicotine dependence, cigarettes, uncomplicated; X50.9XXA Other and unspecified overexertion or strenuous movements or postures, initial encounter; W18.39XA Other fall on same level, initial encounter
CPT/HCPCS: 72128; 72131; 73521; 81025; 96365; 96375; 99284; J0131; J1885; J2270; J2405; J3360

== ENCOUNTER 2022-05-08 10:04 | Outpatient (CLI) | payer OTHER, SELFPAY ==
--- NOTE | ~2022-05-08 | XR_ITS ---
EXAMINATION: XR lumbar spine min 4V DATE: 05/08/2022 12:08 INDICATION: Back pain TECHNIQUE: Anteroposterior and lateral in neutral, flexion and extension views of the lumbar spine we re obtained. COMPARISON: 03/15/2022 FINDINGS: Again seen is a compression fracture at the right anterior/superior endplate of L1 which de monstrates slight interval worsening. There are 14 degrees of thoracolumbar levoscoliosis centered at L1. No hypermobility is noted with flexion or extension. The remaining vertebral body heights are no rmal. The intervertebral disc spaces are maintained. Cholecystectomy clips are noted. The visualized lung bases are clear. IMPRESSION: 1. Worsening compression deformity at the right anterior/superior endplate of L1. Reviewed, dictated and finalized at location B. 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 Worsening compression deformity at the right anterior/superior endplate of L 1.
== END 2022-05-08 10:05 | disposition home or self-care (01) ==
PROVIDERS: PCP Physician Assistant; Visit Provider Neurological Surgery
DX: S32.000A Wedge compression fracture of unspecified lumbar vertebra, initial encounter for closed fracture (principal); X58.XXXA Exposure to other specified factors, initial encounter
CPT/HCPCS: 72110

== ENCOUNTER 2022-05-22 09:09 | Outpatient (CLI) | payer OTHER, SELFPAY ==
--- NOTE | ~2022-05-22 | CT_ITS ---
EXAMINATION: CT lumbar spine wo con DATE: 05/22/2022 10:14 INDICATION: Back pain. TECHNIQUE: Computed tomography (CT) of the lumbar spine was performed without intravenous contrast. A utomated exposure control and iterative reconstruction technique were employed. The dose-length produ ct was 172.32 mGy-cm. COMPARISON: CT 03/15/2022 FINDINGS: There are changes of cholecystectomy. There is 15 degrees levoscoliosis of thoracolumbar sp ine, predominantly at T12-L1. There is focal kyphosis at T12-L1. There is a chronic compression fract ure of L1 with 1/5 loss of height. The following disc levels are specifically discussed: T12-L1: The disc is bulging. There is superior dislocation of the T12 facets with respect to the L1 f acets. There is no neural foraminal stenosis. There is mild central canal stenosis. L1-L2: The disc does not extend beyond the endplate margin. There is no facet joint osteoarthritis. T here is no neural foraminal stenosis. There is no central canal stenosis. L2-L3: The disc is mildly bulging. There is mild right facet joint osteoarthritis. There is mild righ t neural foraminal stenosis. There is mild central canal stenosis. L3-L4: The disc does not extend beyond the endplate margin. There is no facet joint osteoarthritis. T here is no neural foraminal stenosis. There is no central canal stenosis. L4-L5: The disc is mildly bulging. There is no facet joint osteoarthritis. There is no neural foramin al stenosis. There is mild central canal stenosis. L5-S1: The disc is bulging. There is mild bilateral facet joint osteoarthritis. There is mild bilater al neural foraminal stenosis. There is mild central canal stenosis. IMPRESSION: 1. Chronic compression fracture of L1 with worsened focal kyphosis and levoscoliosis at T12-L1, now w ith dislocation of the facet joints. Reviewed, dictated and finalized at location A. 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 Chronic compression fracture of L1 with worsened focal kyphosis and levoscol iosis at T12-L1, now with dislocation of the facet joints.
--- NOTE | ~2022-05-22 | MR_ITS ---
EXAMINATION: MR cervical spine wo con DATE: 05/22/2022 10:11 INDICATION: Neck pain TECHNIQUE: Magnetic resonance imaging (MRI) of the cervical spine was performed without intravenous c ontrast. Sequences included sagittal T2-weighted FSE, sagittal T2-weighted FS FSE, sagittal T1-weight ed FSE, axial MERGE and axial T2-weighted FSE. COMPARISON: None FINDINGS: Bone alignment is normal. Vertebral body heights are normal. Bone marrow signal intensity is normal . Intervertebral disc heights are normal. Cord signal intensity is normal. The following disc levels are specifically discussed: C2-C3: The disc does not extend beyond the endplate margin. There is no uncovertebral joint osteoarth ritis. There is no facet joint osteoarthritis. There is no neural foraminal stenosis. There is no jin tral canal stenosis. C3-C4: The disc does not extend beyond the endplate margin. There is mild bilateral uncovertebral nikki nt osteoarthritis. There is mild bilateral facet joint osteoarthritis. There is no neural foraminal s tenosis. There is no central canal stenosis. C4-C5: Disc is mildly bulging. There is mild bilateral uncovertebral joint osteoarthritis. There is m ild right facet joint osteoarthritis. There is no neural foraminal stenosis. There is no central elisa l stenosis. C5-C6: Disc is mildly bulging. There is mild bilateral uncovertebral joint osteoarthritis. There is m ild right facet joint osteoarthritis. There is mild right neural foraminal stenosis. There is no cent ral canal stenosis. C6-C7: Disc is mildly bulging with superimposed annular fissure and small central to left paracentral disc protrusion. There is mild bilateral uncovertebral joint osteoarthritis. There is mild bilateral facet joint osteoarthritis. There is mild bilateral neural foraminal stenosis. There is mild central canal stenosis. C7-T1: The disc does not extend beyond the endplate margin. There is no uncovertebral joint osteoarth ritis. There is mild bilateral facet joint osteoarthritis. There is no neural foraminal stenosis. The re is no central canal stenosis. IMPRESSION: 1. Mild cervical spondylosis. Reviewed, dictated and finalized at location B. [employer]
== END 2022-05-22 09:10 | disposition home or self-care (01) ==
PROVIDERS: PCP Family Medicine; Visit Provider Neurological Surgery
DX: S32.000A Wedge compression fracture of unspecified lumbar vertebra, initial encounter for closed fracture (principal); X58.XXXA Exposure to other specified factors, initial encounter; M47.892 Other spondylosis, cervical region
CPT/HCPCS: 72131; 72141

== ENCOUNTER 2022-06-15 12:29 | Outpatient (CLI) | payer OTHER, SELFPAY | END 2022-06-15 12:30 | disposition home or self-care (01) | LOC: ANHSURGERY 12:31 | PROVIDERS: PCP Family Medicine; Visit Provider Neurological Surgery | DX: M53.2X5 Spinal instabilities, thoracolumbar region (principal); Z01.818 Encounter for other preprocedural examination | CPT/HCPCS: 36415; 86850; 86900; 86901 ==

== ENCOUNTER 2022-06-22 14:36 | Inpatient (IN) | payer OTHER, SELFPAY ==
[2022-06-15 10:03] VITALS: BMI 17.6
--- NOTE | 2022-06-15 10:07 | PC.NURSE ---
Report to the Outpatient Waiting Room, entrance under the green pavilion located off [facility], at time 8:00 on date 06/22/22. Planned Procedure Time: 10:00. Time changes happen often and if your time is changed the preop area will call you the afternoon before. - You and your visitor will be asked to self-screen and do not enter if you have any COVID symptoms. - Only one visitor is requested with a max of two and NO children visitors are allowed at this time. - The patient visitor may be requested to leave or wait in car when not with patient due to distancing restrictions. - A mask is optional within the hospital at this time. Patients may have clear liquids (water, carbonated beverages, clear teas, apple juice) until 3 hours prior to surgery with a maximum of 20 ounces. - No food from midnight until time of surgery Take the following medications with a SIP of water the morning of surgery: CLONAZEPAM, PAIN PILL IF NEEDED DO NOT STOP ANY OF YOUR OTHER PRESCRIPTION MEDICATIONS PRIOR TO SURGERY?EXCEPT THE FOLLOWING Medications to discontinue per physician: N/A Date to take last dose: N/A Please no make-up, nail citizen of [place], hairspray, perfume, deodorant, or body powder the day of surgery. No jewelry (including any body piercings) or valuables the day of surgery, leave them at home. Please take a shower or bath the night before, or the morning of, surgery with an antibacterial soap. Wear comfortable, loose fitting clothing. - Jewelry must be removed prior to entering the operating room. Rings and piercings that are not removed may be cut off. - The hospital will not accept responsibility for valuables. - Please leave all valuables, including medications, at home the day of surgery. If you are going home after surgery, a licensed public transit trolley driver must drive you home. - NO public transportation without another adult if you receive anesthesia. - We recommend that an adult stay with you for 24 hours following discharge. - We also recommend that you do not drive, make important decision, drink alcoholic beverages, or take any drugs that were not prescribed by your health care provider for at least 24 hours after your discharge time. Follow any additional instructions given to you from your surgeon. If you or anyone in your household have experienced Covid symptoms in the past week, please notify your surgeon or the nurse liaison at the phone number below for possible testing. Telephone instructions given to PT - RAFAELA CARRILLO and asked if any additional questions and then verbalized understanding. Patient advised to call surgeon office or pre surgery nurse liaison [phone] if any additional questions.
--- NOTE | 2022-06-19 09:59 | PCCCNOTE ---
Phone call to Karina, she confirms that patient is approved for Inpatient 06/22-06/26 # [id number]. Requested that that authorization be scanned in/ fax'd and verbalizes understanding. Phone call to Amy in [facility] that authorization is confirmed for inpatient.
[2022-06-22] VITALS (13 sets, daily range): BP systolic 109–140; BP diastolic 65–85; PULSE 55–93; RESP 12–20; TEMP 36.3–37.6; O2SAT 98–100
--- NOTE | ~2022-06-22 | XR_ITS ---
XR fluoroscopy no charge T12-L1 fusion and laminectomy TECHNIQUE: Fluoroscopy used during T12-L1 fusion and laminectomy performed by [Alex Zavala MD] on 06/22/2022. 20 seconds with 8 images captured. FINDINGS: Correlate with procedure note. IMPRESSION: Fluoroscopy used during T12-L1 fusion and laminectomy. Reviewed, dictated and finalized at location B. KER MOUNTER
[2022-06-22] MEDS: LACTATED RINGERS 1,000 ML 30 ML IV CONT ×3 (08:38→13:43)
--- NOTE | 2022-06-22 09:54 | SUR.PREOP ---
Resting without needs or complaints. Discussed delay with patient and . Voices understanding.
--- NOTE | 2022-06-22 10:05 | WPDHPUPDATE1 ---
History and Physical Update Update Date/Time: 06/22/22 10:05 History and Physical has been reviewed, including an updated exam of the patient. There are NO changes in the patient's condition. Risks, benefits, and alternatives have been discussed and questions answered. Patient agrees to proceed with procedure.
--- NOTE | 2022-06-22 10:06 | PM.IMHP ---
H&P: HPI History of Present Illness Date/Time: 06/22/22 10:06 Chief Complaint: back pain Narrative: Jillian is here today with continued back pain and ambulation difficulty.? She is a 31-year-old female who on March 16 experienced a fall backwards onto her low back immediate pain.? She was taken to [facility] where a CT scan was done and demonstrated an L1 compression fracture. ? she was treated with bracing.? She continues to wear the brace but complains of discomfort related to it.? The pain was radiating at that time into her hips on both sides.? At times it is difficult to ambulate because of the pain.? She has not had any specific muscle group weakness.? However she has had discomfort in her neck and on the entire left side of her body as well as a numb feeling there.? This seems to be with her at all times but on detailed questioning may be related to activity.? She spends much of her time in bed because of the discomfort.? She is not having bowel or bladder difficulty or other constitutional problems.? She does have pain in the neck and as mentioned the entire left side of her body including his the arm and leg and chest and abdomen have issues. she is here today for T12-L1 posterolateral instrumented fusion after laminectomy to stabilize the unstable segment because of a 3 column ligamentous injury. Review of Systems Review of Systems: The patient denies shortness of breath, cough, fever, chills, nausea, vomiting, weight loss, weight gain, chest pain, dysuria.? She has neck, thoracic and lumbar spine discomfort.? She has difficulty with ambulation secondary to the discomfort.? Review of systems otherwise negative on 12 systems except as noted elsewhere. [facility] Past Medical History Medical History History of anxiety History of depression Sphincter of Oddi dysfunction Surgical History Surgical History History of biliary duct stent placement History of cholecystectomy Family History Family History Other No pertinent family history Social History Social History Years smoked: 12 Smoking status: Current every day smoker Tobacco type: cigarettes Alcohol intake: never Substance use: current Substance use type: marijuana Living arrangements: with family Gender identity (if verbalized by the patient): Male Spiritual care concerns: No Meds Home Medications and Allergies Home Medications Medication Instructions Recorded Confirmed Type clonazepam 1 mg tablet 1 mg PO BID 04/01/22 06/22/22 History hydrocodone 5 mg-acetaminophen 325 1 tablet PO Q8H PRN Pain 06/15/22 06/22/22 History mg tablet mirtazapine 15 mg tablet 15 mg PO HS 06/15/22 06/22/22 History Allergies Allergy/AdvReac Type Severity Reaction Status Date / Time sulfamethoxazole Allergy Unknown Rash Verified 06/22/22 08:09 trimethoprim Allergy Unknown Rash Verified 06/22/22 08:09 Vital Signs Vital Signs - 24 hr 06/22/22 08:44 Temperature 99.6 F Pulse Rate 88 Respiratory Rate 16 Blood Pressure 120/75 Pulse Oximetry 100 Oxygen Delivery Room Air Exam Narrative: Strength appears to be normal, that is, 5/5 in all muscle groups of the bilateral upper and lower extremities to direct confrontation the laying position. Sensation is intact to light touch throughout the lower extremities. Gait, Station and transfers were independent and steady but antalgic. Her back is tender paraspinally throughout the thoracic and lumbar spine. Assessment and Plan Assessment and plan (1) Spinal instability of thoracolumbar region: Code(s): M53.2X5 - Spinal instabilities, thoracolumbar region Status: Acute (2) Lumbar compression fracture: Code(s): S32.000A - Wedge compression f
--- NOTE | 2022-06-22 10:19 | P.PNAN_ITS ---
Anes - Initial Pre Proc Eval Procedure: Operation Date: 06/22/22 10:00 Proposed Procedures p T12-L1 Posterior Lateral Instrumented Fusion and Laminectomy - Alex Zavala MD Date/Time: 06/22/22 10:19 Surgeon: Alex Zavala MD Pre Op Diagnosis: T12-L1 instability and ligamentation injury Patient Data Age: 31 Gender: F Height: 1.63 m Weight: 47 kg Last Vital Signs Temp 99.6 F 06/22/22 08:44 Pulse 88 06/22/22 08:44 Resp 16 06/22/22 08:44 BP 120/75 06/22/22 08:44 Pulse Ox 100 06/22/22 08:44 O2 Del Method Room Air 06/22/22 08:44 Allergies Allergy/AdvReac Type Severity Reaction Status Date / Time sulfamethoxazole Allergy Unknown Rash Verified 06/22/22 08:09 trimethoprim Allergy Unknown Rash Verified 06/22/22 08:09 Home Medications Medication Instructions Recorded Confirmed Type clonazepam 1 mg tablet 1 mg PO BID 04/01/22 06/22/22 History hydrocodone 5 mg-acetaminophen 325 1 tablet PO Q8H PRN Pain 06/15/22 06/22/22 History mg tablet mirtazapine 15 mg tablet 15 mg PO HS 06/15/22 06/22/22 History Patient hx anesthesia problems: none Family hx anesthesia problems: none Results Review: All pre-operative results and documents have been reviewed as part of the pre- operative evaluation. [facility] Past Medical History Medical History History of anxiety History of depression Sphincter of Oddi dysfunction Surgical History Surgical History History of biliary duct stent placement History of cholecystectomy Family History Family History Other No pertinent family history Social History Social History Years smoked: 12 Smoking status: Current every day smoker Tobacco type: cigarettes Alcohol intake: never Substance use: current Substance use type: marijuana Living arrangements: with family Gender identity (if verbalized by the patient): Male Spiritual care concerns: No Anes - Eval Final PreProcedure Day of Procedure 06/22/22 10:19 Patient weight: normal Heart: regular rate and rhythm Lungs: clear to auscultation Airway: Mallampati scale Neurological: alert and oriented Last oral intake: >/= 8 hours ASA classification: III Emergent: no Anesthetic plan: proceed Anesthesia type and monitoring: general ETT and standard monitoring Results Review: All pre-operative results and documents have been reviewed as part of the pre- operative evaluation. Informed Consent: The patient's anesthetic plan and its attendant risks and benefits were discussed with the patient/family/POA. Questions were solicited and answers provided to the satisfaction of the patient/family/POA.
[2022-06-22] MEDS: ceFAZolin 2 GM/D5W 50 ML 2 GM/50 ML BAG IVPB (10:27)
[2022-06-22] MEDS: LIDO 1%/EPINEPHRINE 1:100,000 20 ML VIAL 10 ML INFILTRATE (11:37)
[2022-06-22] MEDS: fentaNYL CITRATE INJ (*CRX) 100 MCG/2 ML VIAL 25 MCG IV PUSH ×7 (13:21→14:24)
[2022-06-22] MEDS: ONDANSETRON INJ 4 MG/2 ML VIAL IV PUSH (13:21)
--- NOTE | 2022-06-22 13:41 | SUR.OPER ---
25 mL clear yellow urine drained from montes in OR prior to transport to recovery room
--- NOTE | 2022-06-22 15:03 | ADMGEN ---
This patient, Jillian Valle, was admitted to Medical Room 250-01. Patient/family oriented to hospital policies and general routines including ID bracelet, bed and alarms, visiting hours, pain management, procedures, bathroom and other care routines, personal items, smoking policy, room service/diet, and visiting hours. Information on how to activate the Rapid Response Team has been discussed. Patient/Family are encouraged to report perceived risks to care and to ask questions if they do not understand what they are told or what they should do.
[2022-06-22] MEDS: HYDROmorphone HCL INJ (*CRX) 1 MG/ML SYR 0.5 MG IV PUSH ×2 (15:18→17:29)
[2022-06-22] MEDS: KCL 20 MEQ/D5/0.45% SOD CHL 1,000 ML 100 ML IV CONT (15:19)
[2022-06-22] MEDS: CYCLOBENZAPRINE HCL 10 MG TABLET PO (16:59)
[2022-06-22] MEDS: clonazePAM (*CRX) 0.5 MG TABLET 1 MG PO (17:00)
[2022-06-22] MEDS: BENZOCAINE/MENTHOL (*BKC) 18 EA LOZENGE 1 LOZENGE PO (17:03)
[2022-06-22] MEDS: diphenhydrAMINE HCl INJ 50 MG/ML VIAL 25 MG IV PUSH (18:12)
[2022-06-22] MEDS: MORPHINE SULFATE (*CRX) 4 MG/ML INJ IV PUSH (19:58)
[2022-06-22] MEDS: MIRTAZAPINE 15 MG TABLET PO (20:00)
[2022-06-22] MEDS: DOCUSATE SODIUM 100 MG CAPSULE PO (20:00)
[2022-06-22] MEDS: HYDROcodone/acetaminophen (*CRX) 10-325 MG TABLET 1 TAB PO (22:25)
[2022-06-23] MEDS: diphenhydrAMINE HCl INJ 50 MG/ML VIAL 25 MG IV PUSH ×2 (00:15→06:55)
[2022-06-23] MEDS: MORPHINE SULFATE (*CRX) 4 MG/ML INJ IV PUSH ×4 (00:15→20:10)
[2022-06-23 00:35] VITALS: BP 132/84; PULSE 90; RESP 22; TEMP 36.8; O2SAT 100
[2022-06-23] MEDS: KCL 20 MEQ/D5/0.45% SOD CHL 1,000 ML 100 ML IV CONT ×3 (02:13→23:46)
[2022-06-23] MEDS: HYDROcodone/acetaminophen (*CRX) 10-325 MG TABLET 1 TAB PO ×3 (02:19→10:59)
[2022-06-23 05:00] VITALS: BP 112/69; PULSE 65; RESP 20; TEMP 36.6; O2SAT 99
--- NOTE | 2022-06-23 07:55 | WPDANESPN ---
Anes - Prog Note Post-Op Date/Time: 06/23/22 07:55 Cardiovascular status: normal Respiratory status: normal Airway patency: baseline Mental status: baseline Post-Op hydration status: normal Vital Signs: Last Vital Signs Temp 97.9 F 06/23/22 05:00 Pulse 65 06/23/22 05:00 Resp 20 06/23/22 05:00 BP 112/69 06/23/22 05:00 Pulse Ox 99 06/23/22 05:00 O2 Del Method Room Air 06/22/22 20:00 O2 Flow Rate 8 06/22/22 13:35 Pain Score (VAS): 0/10 I/O: Intake & Output 06/22/22 06/22/22 06/23/22 15:59 23:59 07:59 Intake Total 4923 383 8826 Output Total 680 1850 Balance 1250 -510 -250 Post-procedural complaints: none Patient Feedback: Patient satisfied with anesthetic care.
[2022-06-23] MEDS: DOCUSATE SODIUM 100 MG CAPSULE PO ×2 (08:47→20:12)
[2022-06-23] MEDS: clonazePAM (*CRX) 0.5 MG TABLET 1 MG PO ×2 (08:47→17:05)
[2022-06-23] MEDS: CYCLOBENZAPRINE HCL 10 MG TABLET PO (08:55)
[2022-06-23 10:37] VITALS: BP 133/95; PULSE 87; RESP 20; TEMP 36.3; O2SAT 100
--- NOTE | 2022-06-23 11:55 | PC.NURSE ---
Spoke with Dr. Zavala office about patient continuing to have a rash and itching. It is more present after taking her IV morphine. She previously had problems with the Dilaudid yesterday. Patient states she thinks it is her IV antibiotic. I discussed this with Roberta Morales, ANP the office and they don't believe it is due to the antibiotic since she hadn't had a dose since around 0200. They said to still give the antibiotic but to change her pain regiment. Orders received for that. They decided to still keep the morphine but only for breakthrough pain. They stated they want to get her to take the oral medication more than IV. I talked to the patient about her changes in medication. She became tearful. I stepped out so confrontation was avoided. When I came back in the room she states I left her while she was crying and I did not care about her pain. She asked to talk with Dr. Zavala. Patients emotions continued to escalate and charge nurse came in. Dr. Zavala, patient advocate, and our nurse manager image were notified of the situation. I spoke with Dr. Zavala about everything that happened and the patient pain. He gave multiple orders. See orders. He also spoke with the patient on the phone. Dr. Marie also came to the bedside and spoke with the patient.
--- NOTE | 2022-06-23 11:59 | WPDNEUROSGPN ---
Progress Note: A&P Assessment and Plan (1) Spinal instability of thoracolumbar region: Code(s): M53.2X5 - Spinal instabilities, thoracolumbar region Status: Acute Plan Neurologically stable post thoracolumbar decompression and fusion D/C Carrillo D/C hemovac Adjusting pain medications per Dr. Zavala' recommendations - change to percocet and Valium Likely d/c to home once pain under better control - likely tomorrow Explained to patient that she cannot go home on IV pain medication which is rationale for nurses trying to focus on improved control with oral regimen Subjective Date/time seen: 06/23/22 11:59 Interval history: Patient with rash and itching overnight Remains with back pain Adjusting pain medications Carrillo and hemovac in place Exam Narrative: Awake alert oriented x 3 Speech cF BROOKE EOMI Face= TML MAEW with good strength Objective Data Vital Signs Vital Signs: Vital Signs - 24 hr 06/22/22 12:47 06/22/22 13:00 06/22/22 13:15 Temperature 97.4 F L Pulse Rate 71 74 74 Respiratory Rate 12 18 16 Blood Pressure 133/77 132/82 140/85 Pulse Oximetry 100 100 100 Oxygen Delivery Simple Face Mask Simple Face Mask Simple Face Mask Oxygen Flow Rate 6 8 8 06/22/22 13:35 06/22/22 13:50 06/22/22 14:05 Temperature Pulse Rate 63 55 L 68 Respiratory Rate 18 14 16 Blood Pressure 134/79 122/78 127/71 Pulse Oximetry 100 100 100 Oxygen Delivery Simple Face Mask Room Air Room Air Oxygen Flow Rate 8 06/22/22 14:20 06/22/22 14:55 06/22/22 15:21 Temperature 97.5 F L 98.5 F Pulse Rate 57 L 69 90 Respiratory Rate 12 18 20 Blood Pressure 121/76 126/71 124/82 Pulse Oximetry 100 99 100 Oxygen Delivery Room Air Oxygen Flow Rate 06/22/22 14:55 06/22/22 16:06 06/22/22 16:36 Temperature 98.5 F 99.1 F Pulse Rate 83 74 Respiratory Rate 18 18 Blood Pressure 121/77 112/72 Pulse Oximetry 99 99 Oxygen Delivery Room Air Oxygen Flow Rate 06/22/22 20:00 06/22/22 20:30 06/23/22 00:35 Temperature 98.4 F 98.2 F Pulse Rate 93 90 Respiratory Rate 20 22 H Blood Pressure 109/65 132/84 Pulse Oximetry 98 100 Oxygen Delivery Room Air Oxygen Flow Rate 06/23/22 05:00 06/23/22 09:41 06/23/22 10:37 Temperature 97.9 F 97.4 F L Pulse Rate 65 87 Respiratory Rate 20 20 Blood Pressure 112/69 133/95 H Pulse Oximetry 99 100 Oxygen Delivery Room Air Oxygen Flow Rate 06/23/22 08:30 Temperature Pulse Rate Respiratory Rate Blood Pressure Pulse Oximetry Oxygen Delivery Room Air Oxygen Flow Rate Intake/Output Intake/Output: Intake & Output 06/20/22 06/21/22 06/22/22 06/23/22 23:59 23:59 23:59 23:59 Intake Total 1420 1650 Output Total 680 1950 Balance 740 -300 Meds/Results Medications: Active Medications Generic Name Dose Route Start Last Admin Trade Name Freq PRN Reason Stop Dose Admin Al Hydrox/Mg Hydrox/Simethicone 20 ml 06/22/22 14:36 Mag Hydrox/Al Hydrox/Simeth 30 Ml Udc PO Q4H PRN Indigestion/Heartburn Benzocaine 1 lozenge 06/22/22 16:06 06/22/22 17:03 Benzocaine/Menthol (*Bkc) 18 Ea Lozenge PO 1 lozenge PRN PRN Administration Sore Throat Bisacodyl 10 mg 06/22/22 14:36 Bisacodyl 10 Mg Suppository RECTAL DAILY PRN Constipation Clonazepam 1 mg 06/22/22 17:00 06/23/22 08:47 Clonazepam (*Crx) 0.5 Mg Tablet PO 1 mg BID ZINA Administration Diazepam 5 mg 06/23/22 11:34 Diazepam (*Crx) 5 Mg Tablet PO Q6HR PRN Spasms Diphenhydramine HCl 25 mg 06/22/22 17:58 06/23/22 06:55 Diphenhydramine Hcl Inj 50 Mg/Ml Vial IV PUSH 25 mg Q6HR PRN Administration Itching Docusate Sodium 100 mg 06/22/22 21:00 06/23/22 08:47 Docusate Sodium 100 Mg Capsule PO 100 mg Q12HR ZINA Administration Potassium Chloride/Dextrose/Sod Cl 1,000 mls @ 100 mls/hr 06/22/22 14:36 06/23/22 02:13 Kcl 20 Meq/D5/0.45% Sod Chl IV CONT 100 mls/hr .Q10H ZINA
[2022-06-23] MEDS: diazePAM (*CRX) 5 MG TABLET PO (12:34)
[2022-06-23] MEDS: ONDANSETRON INJ 4 MG/2 ML VIAL IV PUSH (14:09)
[2022-06-23 14:46] VITALS: BP 106/66; PULSE 96; RESP 18; TEMP 37.3; O2SAT 98
[2022-06-23] MEDS: oxyCODONE/ACETAMINOPHEN (*CRX) 5-325 MG TABLET 2 TABLET PO ×3 (14:52→23:47)
[2022-06-23 20:00] VITALS: BP 111/68; PULSE 91; RESP 20; TEMP 37.2; O2SAT 99
[2022-06-23] MEDS: MIRTAZAPINE 15 MG TABLET PO (20:10)
[2022-06-24] VITALS: BP 110/61; PULSE 97; RESP 20; TEMP 37.1; O2SAT 98
[2022-06-24] MEDS: oxyCODONE/ACETAMINOPHEN (*CRX) 5-325 MG TABLET 2 TABLET PO ×2 (03:49→14:48)
[2022-06-24 04:34] VITALS: BP 111/64; PULSE 91; RESP 20; TEMP 36.9; O2SAT 99
[2022-06-24] MEDS: ONDANSETRON INJ 4 MG/2 ML VIAL IV PUSH (07:04)
[2022-06-24] MEDS: DOCUSATE SODIUM 100 MG CAPSULE PO (08:05)
[2022-06-24] MEDS: clonazePAM (*CRX) 0.5 MG TABLET 1 MG PO ×2 (08:05→16:26)
[2022-06-24] MEDS: MORPHINE SULFATE (*CRX) 4 MG/ML INJ IV PUSH ×2 (09:40→13:10)
[2022-06-24 11:21] VITALS: BP 112/72; PULSE 114; RESP 18; TEMP 37.7; O2SAT 98
--- NOTE | 2022-07-05 21:57 | W.PM.PROC2 ---
Procedure Note - Detailed Date of Procedure 07/05/22 Pre-op Diagnosis T12-L1 instability and ligamentation injury Post-op Diagnosis Same Procedure Performed T12-L1 laminectomy and Billingsley Antonio osteotomy and posterolateral instrumented fusion for sagittal deformity correction and instability Surgeon Alex Zavala MD Anesthesia General Description of Procedure the patient was brought to the operating room in the supine position, was sedated, intubated and placed under general anesthesia in routine fashion. She was then turned into the prone position on an open Brandon table. History of operation on her back was examined, marked for incision, prepped and draped in routine sterile fashion. Incision was marked over the T12 through L1 spinous processes in the midline as confirmed by fluoroscopy. This area was injected with 0.5% lidocaine with [id number] epinephrine. Intravenous antibiotics given prior to incision. Incision was made with a 10 blade scalpel down to the thoracic and lumbodorsal fascia. A subperiosteal dissection of the muscle and soft tissue away from the spinous process and lamina at T12 and L1 was performed with a subperiosteal elevator and Bovie cautery. A verifying x-rays obtained to verify the level of operation. The T12 and L1 spinous processes were removed with a True rongeur. Kerrison punches, curved curettes and a Leksell rongeur were used to remove lamina in the midline to the soft contents of the canal encountered. The T12 pars was resected bilaterally to perform a Billingsley Antonio osteotomy. This was done with a Midas Eladio drill. The inferior jugular process and facet could then be removed bilaterally. These plus spinous processes were stripped free of soft tissue and morselized for later use as posterolateral autograft. Pedicle screw instrumentations was performed at T12 and L1 by observing and palpating the pedicle while a hole was made in the spear take the process above the pedicle using a Midas Eladio drill. The pedicle was then cannulated with a pedicle probe, checked for continuity with the ball probe, tapped with a 5.5 mm tap and a 5.5 x 50 mm screw was placed into each pedicle on each side. Rods were placed into the screw heads on either side. Caps were loosely placed over these. The lower caps were definitively tightened. A compressor was used to achieve arm deformity correction and then the screw caps were again definitively tightened. This was all done under fluoroscopy which also confirmed good position of the pedicle screws. All the caps were definitively tightened. The lateral masses were decorticated using a Midas Eladio drill. The morselized bone was combined with I factor and then packed against the decorticated surfaces on the lateral masses bilaterally. The wound was then copiously irrigated with bacitracin irrigation all bleeding was stopped with bipolar and Bovie cautery and Gelfoam thrombin powder. A medium Hemovac drain was left in the subfascial position. Out the inferior right of the incision. The wound was then closed in layered fashion with 2-0 Vicryl interrupted sutures in the thoracolumbar and lumbodorsal fascia. 2-0 Vicryl buried interrupted sutures were placed in the Alfredo's layer. 3-0 Vicryl buried interrupted sutures were placed in the dermis and a running 4-0 Monocryl subcuticular stitch was placed in the skin and was dressed with Dermabond and a Telfa and Tegaderm dressing. The patient was then allowed to wake up in the operating room was taken to the recovery room in stable condition. There were no immediate complications of this operation. All counts were reported correct at the end the case. Blood loss was 250 cc. The patient is neurologically at her baseline postoperatively. Estimated Blood Loss -50.0 Urine Output 600 Drains Yes Complications None Condition Stable Disposition PACU [facility] Billing Surgery - Charge Forward: Surgery Billing
--- NOTE | 2022-07-05 22:12 | PM.DS ---
DS: Admitting Diagnosis Discharge Date 06/24/22 Admitting Diagnosis T12-L1 compression fracture and ligamentous injury with instability DS: Discharge Diagnosis Discharge Diagnosis (1) Spinal instability of thoracolumbar region: Code(s): M53.2X5 - Spinal instabilities, thoracolumbar region Status: Acute (2) Lumbar compression fracture: Code(s): S32.000A - Wedge compression fracture of unspecified lumbar vertebra, initial encounter for closed fracture Status: Acute DS: Summary Hospital Course Hospital Course: patient was taken to the operating room on with the aforementioned operation was performed without complication. The patient went to the floor postoperatively. Carrillo catheter and drain removed on postoperative day 1. Physical and occupational therapy were involved in her care. By postop day 2 she was eating, ambulating and emptying her bladder and her pain was under control with by mouth pain medicine. Her wounds remain clean dry and intact. She was afebrile stable vital signs. She was therefore allowed to be discharged home. Status at Discharge Functional status at discharge: independent ambulation Overall status at discharge: patient is progressing back to baseline Time Spent with Patient Time attestation: Total time spent providing and/or coordinating discharge services: Discharge Plan Discharge Attending physician on discharge: Alex Zavala Consulting providers: Adam Santillan ; Genna Marie Discharging Clinician: Alex Zavala Patient Disposition: Home, Self-Care Activity: may shower Diet: as tolerated Discharge Instructions: INSTRUCTIONS AFTER YOUR LUMBAR LAMINECTOMY/DECOMPRESSION/FORAMINOTOMY/DISCECTOMY Incisions may be closed with either: Steri-strips (let them wear off on their own). Surgical glue (let it peel off on its own). Sutures or divya (call the office for an appointment to have these removed). Keep the incision dry for the first three days after surgery. Never apply ointments or lotions to the incision. The incision should be checked daily. Notify the office if there is drainage, redness, or if you have fever with a temperature of over 100 degrees. After the third postop day, it is okay to shower. Let soap and water run over your incision. No soaking in a tub, hot tub, or pool for at least one month. You are encouraged to walk as much as comfortable, with assistance as needed. For example, it may be beneficial to walk short distances hourly during the waking hours and gradually increase walking during your recovery period. Fatigue can be common. Avoid any bending, heavy lifting, twisting movements. You have an vmmor-rw-umb-pound lift restriction until further advised by your physician (A gallon of milk weighs eight pounds). Make frequent position changes, avoiding long periods of sitting. Try not to sit more than 30 minutes at a time. You may engage in sexual activity in two weeks as tolerated. No housework, especially vacuuming, making beds, or doing laundry until seen in the office. You may walk stairs carefully. Minimize car rides for two weeks. Driving can usually be resumed within two weeks; however, you may not drive at that time if still taking pain medications. Once you are discharged from the hospital, please call the office to set up your postop appointment. The physician may order pain medication and/or muscle relaxers. As time goes by, you should require less of these. Always take your medication as ordered, and only if needed. If you take more than prescribed, it will not be refilled early. If you feel you require narcotic medication refill, kindly give the office a 72-hour notice. No refills are given over the weekend. Anti-inflammatory meds (like Ibuprofen, Aleve, Advil, Motrin) may be used if approved by your surgeon. Over the counter Tylenol products may be used but use caution mixing Tylenol with your pain medicati
== END 2022-06-24 16:54 | disposition home or self-care (01) | DRG 304 ==
LOC: ANH2MED 14:47
PROVIDERS: Admitting Provider Neurological Surgery; PCP Family Medicine; Visit Provider Neurological Surgery
PROC: 0RGA071 Fusion of Thoracolumbar Vertebral Joint with Autologous Tissue Substitute, Posterior Approach, Posterior Column, Open Approach (ICD-10-PCS; CPT 22612; principal; 2022-06-22 10:00)
DX: S32.010A Wedge compression fracture of first lumbar vertebra, initial encounter for closed fracture (principal); M53.2X5 Spinal instabilities, thoracolumbar region; Z90.49 Acquired absence of other specified parts of digestive tract; X58.XXXA Exposure to other specified factors, initial encounter
CPT/HCPCS: 97161; 97165; 97530; 97535; 99199; A9270; C1713; J0690; J1100; J1170; J1200; J2270; J2405; J2704; J2710; J3010; J3480; J7120

== ENCOUNTER 2022-07-24 15:37 | Outpatient (CLI) | payer OTHER, SELFPAY ==
--- NOTE | ~2022-07-24 | XR_ITS ---
XR lumbar spine 2-3V DATE: 07/24/2022 16:02 INDICATION: Thoracolumbar spinal instability is TECHNIQUE: AP, lateral, coned lateral lumbosacral views COMPARISON: CT lumbar spine FINDINGS: Status post posterior surgical fusion at T12-L1 since 05/22/2022. There is mild anterior wedge chronic compression fracture deformity at L1. No other fracture is evide nt. Mild levoscoliosis of the thoracolumbar spine. The lumbar vertebrae are normally aligned. No spondylolisthesis. No bone destruction is noted. Includ ed lower thoracic and lumbar pedicles are intact. Lumbar and lumbosacral interspaces are well preserved. The sacroiliac joints appear normal. Surgical clips overlie the right upper quadrant, consistent with cholecystectomy IMPRESSION: Status post posterior fusion at T12-L1 Chronic L1 compression fracture deformity Reviewed, dictated and finalized at location B.
== END 2022-07-24 15:38 | disposition home or self-care (01) ==
PROVIDERS: PCP Family Medicine; Visit Provider Neurological Surgery
DX: M53.2X5 Spinal instabilities, thoracolumbar region (principal); Z98.1 Arthrodesis status
CPT/HCPCS: 72100

== ENCOUNTER 2022-09-30 10:00 | Outpatient (CLI) | payer OTHER, SELFPAY ==
--- NOTE | ~2022-09-30 | CT_ITS ---
EXAMINATION: CT lumbar spine wo con DATE: 09/30/2022 10:24 INDICATION: Low back pain, unspecified. TECHNIQUE: Computed tomography (CT) of the lumbar spine was performed without intravenous contrast. A utomated exposure control and iterative reconstruction technique were employed. The dose-length produ ct was 200.74 mGy-cm. COMPARISON: CT lumbar spine 05/22/22 FINDINGS: There are changes of cholecystectomy. There is 8 degrees levocurvature of thoracolumbar spi ne. There is a chronic compression fracture of L1 with 1/5 loss of height and focal kyphosis. There a re changes of posterior fusion procedure at T12-L1. There is mildly decreased disc height at T12-L1. The following disc levels are specifically discussed: T12-L1: The disc is bulging. There is no facet joint hypertrophy. There is mild right neural foramina l stenosis. There is mild central canal stenosis. L1-L2: The disc does not extend beyond the endplate margin. There is mild bilateral facet joint osteo arthritis. There is no neural foraminal stenosis. There is no central canal stenosis. L2-L3: The disc does not extend beyond the endplate margin. There is no facet joint osteoarthritis. T here is no neural foraminal stenosis. There is no central canal stenosis. L3-L4: The disc does not extend beyond the endplate margin. There is mild bilateral facet joint osteo arthritis. There is no neural foraminal stenosis. There is no central canal stenosis. L4-L5: The disc is bulging. There is mild bilateral facet joint osteoarthritis. There is mild bilater al neural foraminal stenosis. There is mild central canal stenosis. L5-S1: The disc is bulging. There is mild bilateral facet joint osteoarthritis. There is mild bilater al neural foraminal stenosis. There is mild central canal stenosis. IMPRESSION: 1. Posterior fusion procedure at T12-L1. 2. Mild lumbar spondylosis. Reviewed, dictated and finalized at location A.
== END 2022-09-30 10:01 | disposition home or self-care (01) ==
PROVIDERS: PCP Family Medicine; Visit Provider Neurological Surgery
DX: M47.896 Other spondylosis, lumbar region (principal); Z98.1 Arthrodesis status
CPT/HCPCS: 72131

== ENCOUNTER 2022-10-20 08:00 | Outpatient (RCR) | payer OTHER, SELFPAY ==
--- NOTE | 2022-08-18 10:18 | PTOPEVAL1 ---
Assessment and note entered by Claudio Garza, PT Evaluation Information Assessment Status Evaluation Diagnosis T12-L1 laminectomy with PLIF Onset June 2022 Subjective Information Patient reports having surgery in June after a fall in February of last year. Patient main problems are feeling stiff and that her joints specifically ankles are going to tear when doing standing activities like walking. 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 Reported Pain Level Pain Score Severe Pain: Gordon Thompson Additional Pain Score Comments Patient unable to give a numerical rating. Patient described severe pain. Assessment PT Clinical Summary Jillian is a 31 year old female coming into the clinic for post op back surgery rehab. Patient has tightness in her muscles along with pain with bending. Reports endurance issues also. Physical therapy's plan is to work on getting patient more stretched out and improve endurance for first 4 weeks and then work on work hardening and body mechanics with lifting second 4 weeks. Manual and modalities as needed for pain. Plan of Care Interventions Electrical Stimulation,Gait Training,Hot Pack/Cold Pack,Manual Therapy,Neuro Re-education,Patient/ Caregiver Education,Therapeutic Activities, Therapeutic Exercise,Ultrasound Other Interventions taping, cupping, and IASTM PT Services Indicated Yes Treatment Frequency and 2x/wk for 4 weeks Duration These treatments will address the objective and functional deficits as defined above. The patient will be advanced safely and appropriately in order for the patient to progress towards his/her prior level of function. Additional exercises will be introduced and as well as a comprehensive home exercise program upon discharge, if needed, ?to ensure carryover of functional gains achieved in the clinic. This treatment plan has been reviewed and agreement upon by the patient.
--- NOTE | 2022-09-15 10:21 | PCPTNOTE ---
Patient did not show up for scheduled re-evaluation this date.
--- NOTE | 2022-09-23 13:25 | PTOPPROG ---
Assessment and note entered by Claudio Garza, PT Evaluation Information Assessment Status Progress Diagnosis L1 compression fx with fusion Onset June 2022 Subjective Information Patient has been doing therapy, but she is still having pain especially to the L of her surgical site. Patient reports every time she bends over she feels a pop or crack and pain. Physical therapist told patient that everything looks okay, but if she is worried she should talk to her surgeon about it. [facility] Assessment PT Clinical Summary Jillian is a 31 year old coming into the clinic with a diagnosis of back fusion after L1 compression fx. She was evaluated on 08/18/22 and attended 7 visits. Unfortunately patient unable to make any goals this go around recommend starting aquatic therapy and see if we can ease her into lower extremity stretching and core strengthening with less stress on the back. Plan of Care Interventions Aquatic Therapy,Electrical Stimulation,Gait Training,Hot Pack/Cold Pack,Manual Therapy,Neuro Re-education,Patient/Caregiver Education,Therapeutic Activities,Therapeutic Exercise,Ultrasound Other Interventions taping, cupping, IASTM PT Services Indicated Yes Treatment Frequency and 1x/wk for 4 weeks Duration These treatments will address the objective and functional deficits as defined above. The patient will be advanced safely and appropriately in order for the patient to progress towards his/her prior level of function. Additional exercises will be introduced and as well as a comprehensive home exercise program upon discharge, if needed, ?to ensure carryover of functional gains achieved in the clinic. This treatment plan has been reviewed and agreement upon by the patient.
--- NOTE | 2022-09-23 16:24 | PCPTNOTE ---
Physical therapist had a note to call patient's doctor about findings of re-evaluation. Therapist calls and talks to Karina about his findings and reports it feels like something is rubbing against the hardware, but is not an emergency and can see the doctor at her scheduled visit October 12. After talking to the doctor's office called the patient and told her the same thing. That the patient does not appear to be an emergency situation, but that she should bring it up to the doctor the next time she sees him.
--- NOTE | 2022-10-20 11:48 | PTOPDC ---
Assessment and note entered by Claudio Garza, PT Evaluation Information Assessment Status Discharge Diagnosis arthodesis of wedge compression lumbar vertebra L1 Onset 06/22/22 Subjective Information Patient reports doing better than the last time the patient saw the physical therapist. The patient has seen the surgeon since that time and feels better about the rubbing she feels potentially over the hardware and is cleared to work. Patient is anxious about that worried she is going to hurt herself by overdoing it. Patient also concerned if she should have a bone stimulator. (Informed patient to discuss that with her surgeon). Patient also reportedly getting an MRI of her low back to rule out nerve damage going down to the L ankle. Reported Pain Level Pain Score 3: Self Report Additional Pain Score Comments 7 at worst, main concern is still her L ankle tightness. Assessment PT Clinical Summary Jillian is a 31 year old female coming into the clinic with a diagnosis of arthrodesis of a wedge compression fx L1. Patient was evaluated on and has attended 11 sessions of physical therapy with 4 being aquatic therapy. Patient has made progress in flexibility of calfs and hamstrings and reduction in pain, but appears to want more assistance before returning to work. 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 Discharged from this facility so she continue progressing at new facility. Plan of Care PT Services Indicated No
== END 2022-10-21 14:22 | disposition home or self-care (01) ==
LOC: ANHPT 08:00
PROVIDERS: PCP Family Medicine; Visit Provider Neurological Surgery
DX: S32.000D Wedge compression fracture of unspecified lumbar vertebra, subsequent encounter for fracture with routine healing (principal); Z98.1 Arthrodesis status
CPT/HCPCS: 97014; 97110; 97113; 97140; 97161; 97530; 99199; G0283

== ENCOUNTER 2022-11-11 12:37 | Outpatient (CLI) | payer OTHER, SELFPAY ==
--- NOTE | ~2022-11-11 | MR_ITS ---
EXAMINATION: MR lumbar spine wo con DATE: 11/11/2022 13:21 INDICATION: Low back pain. Spinal instability of thoracolumbar region. TECHNIQUE: Magnetic resonance imaging (MRI) of the lumbar spine was performed without intravenous con trast. COMPARISON: CT lumbar spine 09/30/22 FINDINGS: There is mild chronic anterior wedging of L1 vertebral body. There is focal kyphosis at T12 -L1. There are changes of posterior fusion procedure at T12-L1 with pedicle screws. There is mildly d ecreased disc height at T12-L1. The distal spinal cord signal intensity is normal. The conus medullar is is at T12-L1. The following disc levels are specifically discussed: T12-L1: The disc is bulging and has an annular fissure. There is no facet joint osteoarthritis. There is mild right neural foraminal stenosis. There is mild central canal stenosis. L1-L2: The disc does not extend beyond the endplate margin. There is no facet joint osteoarthritis. T here is no neural foraminal stenosis. There is no central canal stenosis. L2-L3: The disc does not extend beyond the endplate margin. There is mild bilateral facet joint osteo arthritis. There is no neural foraminal stenosis. There is no central canal stenosis. L3-L4: The disc does not extend beyond the endplate margin. There is mild bilateral facet joint osteo arthritis. There is no neural foraminal stenosis. There is no central canal stenosis. L4-L5: The disc is mildly bulging. There is mild right and moderate left facet joint osteoarthritis. There is mild bilateral neural foraminal stenosis. There is no central canal stenosis. L5-S1: The disc is bulging. There is mild bilateral facet joint osteoarthritis. There is mild lateral neural foraminal stenosis. There is mild central canal stenosis. IMPRESSION: 1. Mild lumbar spondylosis. 2. Posterior fusion procedure at T12-L1. Reviewed, dictated and finalized at location A.
== END 2022-11-11 12:38 | disposition home or self-care (01) ==
PROVIDERS: PCP Family Medicine; Visit Provider Neurological Surgery
DX: M79.605 Pain in left leg (principal); M53.2X5 Spinal instabilities, thoracolumbar region; M47.896 Other spondylosis, lumbar region; Z98.1 Arthrodesis status
CPT/HCPCS: 72148

== ENCOUNTER 2022-12-11 10:25 | Outpatient (CLI) | payer OTHER, SELFPAY ==
--- NOTE | ~2022-12-11 | CT_ITS ---
EXAMINATION: CT thoracic spine wo con DATE: 12/11/2022 10:48 INDICATION: Spinal instabilities, thoracolumbar region. TECHNIQUE: Computed tomography (CT) of the thoracic spine was performed without intravenous contrast. Automated exposure control and iterative reconstruction technique were employed. The dose-length pro duct was 221.96 mGy-cm. COMPARISON: CT thoracic spine 03/15/2022, lumbar spine MRI 11/11/2022 FINDINGS: There are changes of cholecystectomy. There is 13 degrees dextroscoliosis of thoracic spine . There is a chronic compression fracture of L1 with 1/5 loss of height. There is mild chronic anteri or wedging of T12 vertebral body. There are changes of posterior fusion procedure at T12-L1 with pedi nirmal screws. There is mildly decreased disc height at T12-L1. There is multilevel mild facet joint ost eoarthritis. IMPRESSION: 1. Mild thoracic spondylosis. 2. Thoracic dextroscoliosis. 3. Posterior fusion procedure at T12-L1. Reviewed, dictated and finalized at location A.
== END 2022-12-11 10:26 | disposition home or self-care (01) ==
PROVIDERS: PCP Family Medicine; Visit Provider Neurological Surgery
DX: M53.2X5 Spinal instabilities, thoracolumbar region (principal); Z98.890 Other specified postprocedural states; M47.894 Other spondylosis, thoracic region; Z98.1 Arthrodesis status
CPT/HCPCS: 72128

== ENCOUNTER 2023-01-01 12:40 | Outpatient (CLI) | payer OTHER, SELFPAY ==
--- NOTE | 2023-01-01 13:28 | ECG_ITS ---
Measurements Intervals [place] Rate: 69 P: 74 [place]: 153 QRS: 72 QRSD: 82 T: 62 QT: 366 QTc: 393 Interpretive Statements SINUS RHYTHM WITH SINUS ARRHYTHMIA MINIMAL Q WAVES- INF/LAT LEADS BORDERLINE ECG COMPARED TO ECG 06/26/2018 12:41:22 SINUS ARRHYTHMIA NOW PRESENT Electronically Signed On 01-01-2023 13:51:41 CDT by Juan Ramon Delong D.O.
[2023-01-01 13:55] LABS: Hematocrit 39.9 % (37.0-47.0); Hemoglobin 13.6 g/dL (12.0-15.0); Mean Corpuscular HGB Conc 34.1 g/dl (32-36); Mean Corpuscular Hemoglobin 30.1 pg (26-34); Mean Corpuscular Volume 88.3 fl (80-100); Platelet Count Result 261 k/mm3 (150-375); Red Blood Count 4.52 M/mm3 (4.2-5.4); Red Cell Distribution Width 12.2 % (11.5-14.5); White Blood Count 8.9 K/mm3 (4.5-10.0)
[2023-01-01 14:07] LABS: Anion Gap 7 mmol/L (8-16); Blood Urea Nitrogen 14 mg/dL (7-17); Calcium 9.2 mg/dL (8.4-10.2); Carbon Dioxide 25 mmol/L (22-30); Chloride 106 mmol/L (98-107); Estimated Glomerular Filt Rate > 60; Glucose 103 mg/dL (65-110); Prothrombin Time 13.3 Seconds (11.1-14.7); Sodium 138 mmol/L (137-145)
[2023-01-01 14:08] LABS: Partial Thromboplastin Time 28.6 SECONDS (22.3-36.8)
[2023-01-01 14:20] LABS: Appearance Urine Cloudy (Clear); Bacteria Urine 1+ /hpf; Bilirubin Urine Negative (Negative); Blood Urine Negative (Negative); Color Urine Dark Yellow (Yellow); Glucose Urine UA Negative (Negative); Ketones Urine Trace mg/dL (Negative); Leukocyte Esterase Ur 1+ LEU/UL (Negative); Need Manual Microscopic Reviewed; Nitrate Urine Negative (Negative); Protein Urine Trace mg/dL (Negative); RBC Urine 0-2 /hpf (0-2); Specific Grav Ur 1.033 (1.001-1.035); Squamous Epithelial Cell Urine Many /hpf (Few); pH Urine 5.5 (5.0-9.0)
[2023-01-01 14:40] LABS: Add Urine Microscopic? YES
== END 2023-01-01 12:41 | disposition home or self-care (01) ==
PROVIDERS: PCP Family Medicine; Visit Provider Neurological Surgery
DX: M53.2X5 Spinal instabilities, thoracolumbar region (principal); T85.848A Pain due to other internal prosthetic devices, implants and grafts, initial encounter
CPT/HCPCS: 36415; 80048; 81001; 85027; 85610; 85730; 87086; 93005

== ENCOUNTER 2023-01-06 19:23 | Inpatient (IN) | payer OTHER, SELFPAY ==
[2022-12-30 08:34] VITALS: BMI 18.5
--- NOTE | 2022-12-30 08:41 | PC.NURSE ---
Report to the Outpatient Waiting Room, entrance under the green pavilion located off [facility], at time _1200_ on date _[id number]_. Planned Procedure Time: _2pm_. Time changes happen often and if your time is changed the preop area will call you the afternoon before. - You and your visitor will be asked to self-screen and do not enter if you have any COVID symptoms. - A mask is optional within the hospital at this time. Patients may have clear liquids (water, carbonated beverages, clear teas, apple juice) until 3 hours prior to surgery with a maximum of 20 ounces. - No food from midnight until time of surgery Take the following medications with a SIP of water the morning of surgery: ___Clonazepam and Oxycodone/acetaminophen DO NOT STOP ANY OF YOUR OTHER PRESCRIPTION MEDICATIONS PRIOR TO SURGERY ?EXCEPT THE FOLLOWING Medications to discontinue per physician None Date to take last dose Please no make-up, nail andorran, hairspray, perfume, deodorant, or body powder the day of surgery. No jewelry (including any body piercings) or valuables the day of surgery, leave them at home. Please take a shower or bath the night before, or the morning of, surgery with an antibacterial soap. Wear comfortable, loose fitting clothing. - Jewelry must be removed prior to entering the operating room. Rings and piercings that are not removed may be cut off. - The hospital will not accept responsibility for valuables. - Please leave all valuables, including medications, at home the day of surgery. If you are going home after surgery, a licensed shuttle van driver must drive you home. - NO public transportation without another adult if you receive anesthesia. - We recommend that an adult stay with you for 24 hours following discharge. - We also recommend that you do not drive, make important decision, drink alcoholic beverages, or take any drugs that were not prescribed by your health care provider for at least 24 hours after your discharge time. Follow any additional instructions given to you from your surgeon. If you or anyone in your household have experienced Covid symptoms in the past week, please notify your surgeon or the nurse liaison at the phone number below for possible testing. Telephone instructions given to __Patient___and asked if any additional questions and then verbalized understanding. Patient advised to call surgeon office or pre surgery nurse liaison [phone] if any additional questions.
[2023-01-05] VITALS (11 sets, daily range): BP systolic 104–155; BP diastolic 60–98; PULSE 62–120; RESP 13–26; TEMP 36.3–37.1; O2SAT 98–100
[2023-01-05] MEDS: LACTATED RINGERS 1,000 ML 30 ML IV CONT (13:30)
--- NOTE | 2023-01-05 14:07 | WPDANESEPPF ---
Anes - Initial Pre Proc Eval Procedure: Operation Date: 01/05/23 14:30 Proposed Procedures p Removal Instrumentation Left Thoracic Area T-12-L1 - Alex Zavala MD Date/Time: 01/05/23 14:07 Surgeon: Alex Zavala MD Pre Op Diagnosis: painful hardware Patient Data Age: 32 Gender: F Height: 1.63 m Weight: 48.7 kg Last Vital Signs Temp 37.1 C 01/05/23 13:10 Pulse 120 H 01/05/23 13:10 Resp 16 01/05/23 13:10 BP 150/98 H 01/05/23 13:10 Pulse Ox 100 01/05/23 13:10 O2 Del Method Room Air 01/05/23 13:10 Allergies Allergy/AdvReac Type Severity Reaction Status Date / Time sulfamethoxazole Allergy Unknown Rash Verified 01/05/23 13:15 trimethoprim Allergy Unknown Rash Verified 01/05/23 13:15 Home Medications Medication Instructions Recorded Confirmed Type clonazepam 1 mg tablet 1 mg PO BID 04/01/22 01/05/23 History oxycodone-acetaminophen 5 mg-325 1 - 2 tablet PO Q4H PRN pain #40 12/14/22 01/05/23 Rx mg tablet (Percocet) tabs Patient hx anesthesia problems: none Family hx anesthesia problems: none Results Review: All pre-operative results and documents have been reviewed as part of the pre-operative evaluation. [facility] Past Medical History Medical History History of anxiety History of depression Sphincter of Oddi dysfunction Surgical History Surgical History History of biliary duct stent placement History of cholecystectomy Status post laminectomy Family History Family History Other No pertinent family history Social History Social History Social History: Jillian is very confident filling out medical forms. In the last 12 months she has not received assistance from an organization or program. Smoking packs per day: 0.5 Smoking cigarettes per day: 10.0 Years smoked: 13 Smoking pack-years: 6.50 Smoking status: Current every day smoker Tobacco type: cigarettes Additional smoking assessment comments: Down to 3 per day at present. Alcohol intake: never Substance use: current Substance use type: marijuana Other substance usage details: Daily once or twice a day. Last use: 06/21/27 Lack of Transportation: No Lack of Food: Never True Current Housing: I Have Housing Concerned About Future Housing: No Difficulty Paying Gas/Electric Bills: No Difficulty Paying for Meds: No Currently Unemployed: No Education: High School Diploma/GED Difficulty w/ Childcare or Family Care: No Living arrangements: with family Gender identity (if verbalized by the patient): Male Spiritual care concerns: No Anes - Eval Final PreProcedure Day of Procedure 01/05/23 14:07 Patient weight: normal Heart: regular rate and rhythm Lungs: clear to auscultation Airway: Mallampati scale class 1 Neurological: alert and oriented Last oral intake: >/= 8 hours ASA classification: III Emergent: no Anesthetic plan: proceed Anesthesia type and monitoring: general ETT and standard monitoring Results Review: All pre-operative results and documents have been reviewed as part of the pre-operative evaluation. Informed Consent: The patient's anesthetic plan and its attendant risks and benefits were discussed with the patient/family/POA. Questions were solicited and answers provided to the satisfaction of the patient/family/POA.
--- NOTE | 2023-01-05 14:23 | PM.IMHP ---
H&P: HPI History of Present Illness Date/Time: 01/05/23 14:23 Chief Complaint: back pain, status post thoracic fusion Narrative: Sathya is a 32-year-old female status post T12-L1 posterior instrumented fusion for ligamentous injury and fracture at that level who is having pain related to the hardware and presents now for removal of the hardware on the left side and redo posterolateral fusion. She has not changed appreciably since we last saw her. She is not having any bowel or bladder difficulty or other constitutional problems. She does not have specific muscle group weakness or dermatomal numbness. Review of Systems Review of Systems: Patient denies shortness of breath, cough, fever, chills, nausea, vomiting, weight loss, weight gain, chest pain, dysuria. She has back pain as above. Her review of systems otherwise negative on 12 systems except as noted elsewhere. [facility] Past Medical History Medical History History of anxiety History of depression Sphincter of Oddi dysfunction Surgical History Surgical History History of biliary duct stent placement History of cholecystectomy Status post laminectomy Family History Family History Other No pertinent family history Social History Social History Social History: Jillian is very confident filling out medical forms. In the last 12 months she has not received assistance from an organization or program. Smoking packs per day: 0.5 Smoking cigarettes per day: 10.0 Years smoked: 13 Smoking pack-years: 6.50 Smoking status: Current every day smoker Tobacco type: cigarettes Additional smoking assessment comments: Down to 3 per day at present. Alcohol intake: never Substance use: current Substance use type: marijuana Other substance usage details: Daily once or twice a day. Last use: 06/21/27 Lack of Transportation: No Lack of Food: Never True Current Housing: I Have Housing Concerned About Future Housing: No Difficulty Paying Gas/Electric Bills: No Difficulty Paying for Meds: No Currently Unemployed: No Education: High School Diploma/GED Difficulty w/ Childcare or Family Care: No Living arrangements: with family Gender identity (if verbalized by the patient): Male Spiritual care concerns: No Meds Home Medications and Allergies Home Medications Medication Instructions Recorded Confirmed Type clonazepam 1 mg tablet 1 mg PO BID 04/01/22 01/05/23 History oxycodone-acetaminophen 5 mg-325 1 - 2 tablet PO Q4H PRN pain #40 12/14/22 01/05/23 Rx mg tablet (Percocet) tabs Allergies Allergy/AdvReac Type Severity Reaction Status Date / Time sulfamethoxazole Allergy Unknown Rash Verified 01/05/23 13:15 trimethoprim Allergy Unknown Rash Verified 01/05/23 13:15 Vital Signs Vital Signs - 24 hr 01/05/23 13:10 Temperature 98.8 F Pulse Rate 120 H Respiratory Rate 16 Blood Pressure 150/98 H Pulse Oximetry 100 Oxygen Delivery Room Air Exam Narrative: Strength is 5/5 in all muscle groups the bilateral lower extremities. Sensation is intact light touch throughout the lower extremities. Breathing is nonlabored Regular rate and rhythm Assessment and Plan Assessment and plan (1) Status post thoracic spinal fusion: Code(s): Z98.1 - Arthrodesis status Status: Acute (2) Status post laminectomy: Code(s): Z98.890 - Other specified postprocedural states Status: Acute (3) Lumbar compression fracture: Code(s): S32.000A - Wedge compression fracture of unspecified lumbar vertebra, initial encounter for closed fracture Status: Acute Assessment and Plan: Sathya is a 32-year-old female with back pain related to hardware at T12-L1
--- NOTE | 2023-01-05 14:28 | WPDHPUPDATE1 ---
History and Physical Update Update Date/Time: 01/05/23 14:28 History and Physical has been reviewed, including an updated exam of the patient. There are NO changes in the patient's condition. Risks, benefits, and alternatives have been discussed and questions answered. Patient agrees to proceed with procedure.
[2023-01-05] MEDS: ceFAZolin 2 GM/D5W 50 ML 2 GM/50 ML BAG IVPB (14:37)
[2023-01-05] MEDS: LIDO 1%/EPINEPHRINE 1:100,000 20 ML VIAL 10 ML INFILTRATE (15:10)
[2023-01-05] MEDS: ONDANSETRON INJ 4 MG/2 ML VIAL IV PUSH (16:20)
--- NOTE | 2023-01-05 17:16 | PC.NURSE ---
This patient, Jillian Valle, was admitted to Medical Room 345-. Patient/family oriented to hospital policies and general routines including ID bracelet, bed and alarms, visiting hours, pain management, procedures, bathroom and other care routines, personal items, smoking policy, room service/diet, and visiting hours. Information on how to activate the Rapid Response Team has been discussed. Patient/Family are encouraged to report perceived risks to care and to ask questions if they do not understand what they are told or what they should do.
[2023-01-05] MEDS: KCL 20 MEQ/D5/0.45% SOD CHL 1,000 ML 100 ML IV CONT (17:24)
[2023-01-05] MEDS: HYDROmorphone HCL INJ (*CRX) 1 MG/ML SYR 0.5 MG IV PUSH ×2 (17:27→21:06)
[2023-01-05] MEDS: BENZOCAINE/MENTHOL (*BKC) 18 EA LOZENGE 1 LOZENGE PO (17:59)
[2023-01-05] MEDS: CYCLOBENZAPRINE HCL 10 MG TABLET PO (20:33)
[2023-01-05] MEDS: DOCUSATE SODIUM 100 MG CAPSULE PO (20:33)
[2023-01-05] MEDS: clonazePAM (*CRX) 0.5 MG TABLET 1 MG PO (20:33)
[2023-01-05] MEDS: oxyCODONE/ACETAMINOPHEN (*CRX) 10-325 MG TABLET 1 TAB PO (20:33)
[2023-01-06] VITALS (13 sets, daily range): BP systolic 93–155; BP diastolic 58–99; PULSE 63–107; RESP 12–24; TEMP 36.4–37; O2SAT 96–100
--- NOTE | ~2023-01-06 | CT_ITS ---
EXAMINATION: CT thoracic spine w con DATE: 01/09/2023 15:23 INDICATION: Thoracolumbar paravertebral pain and swelling post instrumentation removal at a T12-L1 in strumented posterior spinal fusion. TECHNIQUE: Computed tomography (CT) of the thoracic spine was performed with 100 mL Omnipaque-350 int ravenous contrast. Automated exposure control and iterative reconstruction technique were employed. T he dose-length product was 201.54 mGy-cm. COMPARISON: Thoracic spine CT dated 12/11/[address] dated 10/10/2022 FINDINGS: Mild kyphosis centered at the thoracolumbar junction where there are changes of prior T12 laminectomy and T12-L1 instrumented posterior spinal fusion. The right-sided vertical alma and pedicle screws donald ears unchanged with no evident enhancement the superior surrounding lucency to suggest loosening. The re are residual lucent tracks along the left-sided pedicles post removal of a prior left-sided verteb ral body and pedicle screws. There is a chronic bone graft material positioned posterior to the centr al canal at the laminectomy bed. More superficially is a low-density likely postoperative seroma exte nding 4 cm craniocaudally from the level of L1-L2 and measuring up to 1.5 x 1.4 cm maximal transaxial dimensions. There is asymmetric swelling of the left-sided rectus. Muscles. Within the superficial a spect of the muscle overlying the entry site of the removed left T12 pedicle screw is a 3.6 x 2.3 x 0 .6 cm irregular region of calcific density likely representing bone graft material. This is markedly higher in attenuation than the blood pool likely representing bone graft material. There is moderate right-sided predominant disc height loss at T12-L1. There is chronic superior endplate compression fr acture along the right anterior aspect of the L1 vertebral body. The more cephalad thoracic spine is unremarkable. Visualized portions of the lungs are clear. Were pancreas, bilateral adrenal glands, le ft kidney and visualized portions of the right kidney, liver and spleen are unremarkable. IMPRESSION: 1. Chronic T12 laminectomy and T12-L1 instrumented posterior spinal fusion With postoperative changes of recent removal of the left-sided alma and pedicle screws. 2. 4 x 1.5 x 1.4 cm relatively superficial subcutaneous excellent likely representing a seroma along the midline posterior to the operative bed. 3. Asymmetric swelling of the left paraspinal musculature with 3.6 x 2.3 x 0.6 cm irregular region of high attenuation likely bone graft material within the superficial aspect of the paraspinal musculat ure. 4. Chronic mild right anterior superior endplate compression fracture of L1. Reviewed, dictated and finalized at location A. IMPRESSION: 1. Chronic T12 laminectomy and T12-L1 instrumented posterior spinal fusion With postoperative changes of recent removal of the left-sided alma and pedicle screws. 2. 4 x 1.5 x 1.4 cm relatively superficial subcutaneous excellent likely repres enting a seroma along the midline posterior to the operative bed. 3. Asymmetric swelling of the left paraspinal musculature with 3.6 x 2.3 x 0.6 cm irregular region of high attenuation likely bone graft material within the s uperficial aspect of the paraspinal musculature. 4. Chronic mild right anterior superior endplate compression fracture of L1.
[2023-01-06] MEDS: HYDROmorphone HCL INJ (*CRX) 1 MG/ML SYR 0.5 MG IV PUSH ×9 (00:02→22:55)
[2023-01-06] MEDS: KCL 20 MEQ/D5/0.45% SOD CHL 1,000 ML 100 ML IV CONT (01:58)
[2023-01-06] MEDS: oxyCODONE/ACETAMINOPHEN (*CRX) 10-325 MG TABLET 1 TAB PO (01:59)
[2023-01-06] MEDS: DOCUSATE SODIUM 100 MG CAPSULE PO ×2 (08:23→22:04)
[2023-01-06] MEDS: clonazePAM (*CRX) 0.5 MG TABLET 1 MG PO ×2 (08:23→22:03)
[2023-01-06] MEDS: BENZOCAINE/MENTHOL (*BKC) 18 EA LOZENGE 1 LOZENGE PO (08:27)
--- NOTE | 2023-01-06 08:41 | PCOTNOTE ---
attempted to see pt. for occupational therapy evaluation. Per pt., in too much pain and needing consultation with Dr. Zavala prior to working with therapy services
--- NOTE | 2023-01-06 10:24 | PCDIET ---
Dietitian screen for BMI: 18.4 underweight. Patient states no weight changes. Follows regular diet at home. No further nutritional interventions needed.
--- NOTE | 2023-01-06 10:27 | WPDANESPN ---
Anes - Prog Note Post-Op Date/Time: 01/06/23 10:27 Cardiovascular status: normal Respiratory status: normal Airway patency: baseline Mental status: baseline Post-Op hydration status: normal Vital Signs: Last Vital Signs Temp 36.7 C 01/06/23 03:55 Pulse 81 01/06/23 03:55 Resp 16 01/06/23 03:55 BP 114/69 01/06/23 03:55 Pulse Ox 100 01/06/23 03:55 O2 Del Method Room Air 01/06/23 08:24 O2 Flow Rate 6 01/05/23 16:10 Pain Score (VAS): 10 I/O: Intake & Output 01/05/23 01/06/23 01/06/23 23:59 07:59 15:59 Intake Total 200 1200 Balance 200 1200 Post-procedural complaints: none Patient Feedback: Patient satisfied with anesthetic care.
--- NOTE | 2023-01-06 11:53 | PC.NURSE ---
Patient tearful in the room. Upset doctor has not seen her today yet. Case Repairer explained to patient that she will call Dr. Zavala and update him on patient's concerns.
--- NOTE | 2023-01-06 14:41 | PCPTNOTE ---
Attempted PT evaluation, pt refused stating she is going to have a surgery tomorrow and requesting therapy evaluation after that. Pt reports ambulating to the bathroom without an issue. RN aware. Will follow.
--- NOTE | 2023-01-06 18:57 | WPDANESEPP ---
Anes - Eval Pre Procedure Procedure: Operation Date: 01/05/23 14:30 Proposed Procedures p Removal Instrumentation Left Thoracic Area T-12-L1 - Alex Zavala MD Operation Date: 01/06/23 19:00 Proposed Procedures p Hematoma Evacuation - Alex Zavala MD Operation Date: 01/07/23 15:00 Proposed Procedures p Evacuation Superficial Lumbar Hematoma - Alex Zavala MD Date/Time: 01/06/23 18:57 Pre Op Diagnosis: painful hardware Patient Data Age: 32 Gender: F Height: 1.63 m Weight: 48.7 kg Last Vital Signs Temp 36.9 C 01/06/23 16:44 Pulse 64 01/06/23 16:44 Resp 18 01/06/23 16:44 BP 101/60 01/06/23 16:44 Pulse Ox 100 01/06/23 16:44 O2 Del Method Room Air 01/06/23 08:24 O2 Flow Rate 6 01/05/23 16:10 Allergies Allergy/AdvReac Type Severity Reaction Status Date / Time sulfamethoxazole Allergy Unknown Rash Verified 01/05/23 13:15 trimethoprim Allergy Unknown Rash Verified 01/05/23 13:15 Home Medications Medication Instructions Recorded Confirmed Type clonazepam 1 mg tablet 1 mg PO BID 04/01/22 01/05/23 History oxycodone-acetaminophen 5 mg-325 1 - 2 tablet PO Q4H PRN pain #40 12/14/22 01/05/23 Rx mg tablet (Percocet) tabs Patient hx anesthesia problems: none Family hx anesthesia problems: none Results Review: All pre-operative results and documents have been reviewed as part of the pre-operative evaluation. [facility] Past Medical History Medical History History of anxiety History of depression Sphincter of Oddi dysfunction Surgical History Surgical History History of biliary duct stent placement History of cholecystectomy Status post laminectomy Family History Family History Other No pertinent family history Social History Social History Social History: Jillian is very confident filling out medical forms. In the last 12 months she has not received assistance from an organization or program. Smoking packs per day: 0.5 Smoking cigarettes per day: 10.0 Years smoked: 13 Smoking pack-years: 6.50 Smoking status: Current every day smoker Tobacco type: cigarettes Second hand tobacco smoke exposure: Yes Additional smoking assessment comments: Down to 3 per day at present. Alcohol intake: never Substance use: current Substance use type: marijuana Other substance usage details: Daily once or twice a day. Last use: 06/21/27 Lack of Transportation: No Lack of Food: Never True Current Housing: I Have Housing Concerned About Future Housing: No Difficulty Paying Gas/Electric Bills: No Difficulty Paying for Meds: No Currently Unemployed: No Education: High School Diploma/GED Difficulty w/ Childcare or Family Care: No Living arrangements: with family Gender identity (if verbalized by the patient): Male Spiritual care concerns: No Exam Day of Procedure 01/06/23 18:57 Patient weight: thin Heart: regular rate and rhythm Lungs: normal air movement Airway: Mallampati scale Neurological: alert and oriented
--- NOTE | 2023-01-06 19:02 | P.OP_ITS ---
Procedure Note - Detailed Date of Procedure 01/05/23 Pre-op Diagnosis painful hardware Post-op Diagnosis Same Procedure Performed Removal of hardware left T12-L1, redo posterolateral fusion T12-L1 Surgeon Alex Zavala MD Anesthesia General Description of Procedure Patient was brought to the operating room in the supine position, was sedated, intubated and placed under general anesthesia in routine fashion. She was then turned into the prone position on a Andrew frame. The area of operation on her back was examined, marked for incision, prepped and draped in routine sterile fashion. Incision was marked in the midline over the previous incision over T12 and L1. This area was injected with 0.5% lidocaine with 1 to 090370 epinephrine. Intravenous antibiotics were given prior to incision. Incision was made with a 10 blade scalpel. Subperiosteal dissection of the muscle and soft tissue away from the lamina was performed with a subperiosteal elevator and Bovie cautery. The instrumentation was discovered on the left side using Bovie cautery. This was removed using the appropriate drivers to removed the caps, alma and screws. The bone surface in the lateral mass was decorticated using Bovie cautery. The bone dust was left in place and I factor was placed over the decorticated surfaces. This was done after the wound was copiously irrigated with bacitracin irrigation. Wound was then closed in layered fashion after all bleeding was stopped with bipolar and Bovie cautery and Gelfoam thrombin powder. 2-0 Vicryl interrupted sutures were placed in the thoracic fascia. 3-0 Vicryl. Interrupted sutures were placed in the dermis and a running 4-0 Monocryl subcuticular stitch was opal dale in the skin and the wound was dressed with Dermabond. The patient was then allowed to come out from general anesthesia in the operating room and was taken to the recovery room in stable condition. There were no immediate complications of this operation. All counts were reported correct at the end of the case. Blood loss was 25 cc. The patient was neurologically at her baseline postoperatively. Estimated Blood Loss 25 IV Fluids 1,000 Complications None Condition Stable Disposition PACU [facility] Billing Surgery - Charge Forward: Surgery Billing
--- NOTE | 2023-01-06 19:07 | WPDNEUROSGPN ---
Progress Note: A&P Assessment and Plan (1) Hematoma, postoperative: Status: Acute Plan Jillian was doing well after of removal of her posterior instrumentation on the left at T12-L1 but has developed hematoma which is causing discomfort and psychological distress and therefore will bring her back to the operating room to open the wound and removed the hematoma. I described to her that operation, its risks, potential benefits, the operative and postoperative course in detail answered all her questions personally. She indicates understanding and elects to proceed with that operation. Subjective Date/time seen: 01/06/23 19:07 Interval history: Jillian is postop day 1 status post T12-L1 left removal of posterior instrumentation and redo posterolateral fusion. She was doing quite well after the operation yesterday. She has since developed a progressively enlarging fluctuant mass underneath her incision, likely hematoma. This is causing her discomfort and a fair amount of psychological distress. She remains normal in the lower extremities. He is not having any new bowel or bladder difficulty. She does not have any specific muscle group weakness or dermatomal numbness. Exam Narrative: Strength is 5/5 in all muscle groups of the bilateral lower extremities. Sensation is intact to light touch throughout the lower extremities. Her wound is clean, dry and intact there is a fluctuant mass which is now several cm across underneath and slightly to the left of her incision. Objective Data Vital Signs Vital Signs: Vital Signs - 24 hr 01/05/23 19:29 01/05/23 20:00 01/06/23 00:34 Temperature 98.8 F 98 F Pulse Rate 65 88 Respiratory Rate 20 24 H Blood Pressure 112/63 155/98 H Pulse Oximetry 98 100 Oxygen Delivery Room Air 01/05/23 23:55 01/06/23 03:55 01/06/23 08:24 Temperature 98 F 98.1 F Pulse Rate 88 81 Respiratory Rate 24 H 16 Blood Pressure 155/98 H 114/69 Pulse Oximetry 100 100 Oxygen Delivery Room Air 01/06/23 12:00 01/06/23 16:44 Temperature 98.6 F 98.5 F Pulse Rate 75 64 Respiratory Rate 16 18 Blood Pressure 106/68 101/60 Pulse Oximetry 99 100 Oxygen Delivery Intake/Output Intake/Output: Intake & Output 01/03/23 01/04/23 01/05/23 01/06/23 23:59 23:59 23:59 23:59 Intake Total 250 3920 Balance 250 3920 Meds/Results Medications: Active Medications Generic Name Dose Route Start Last Admin Trade Name Freq PRN Reason Stop Dose Admin Al Hydrox/Mg Hydrox/Simethicone 20 ml 01/05/23 16:55 Mag Hydrox/Al Hydrox/Simeth 30 Ml Udc PO Q4H PRN Indigestion/Heartburn Benzocaine 1 lozenge 01/05/23 17:54 01/06/23 08:27 Benzocaine/Menthol (*Bkc) 18 Ea Lozenge PO 1 lozenge PRN PRN Administration Sore Throat Bisacodyl 10 mg 01/05/23 16:55 Bisacodyl 10 Mg Suppository RECTAL DAILY PRN Constipation Clonazepam 1 mg 01/05/23 21:00 01/06/23 08:23 Clonazepam (*Crx) 0.5 Mg Tablet PO 1 mg Q12HR ZINA Administration Cyclobenzaprine HCl 10 mg 01/05/23 16:55 01/05/23 20:33 Cyclobenzaprine Hcl 10 Mg Tablet PO 10 mg TID PRN Administration Muscle Spasms Docusate Sodium 100 mg 01/05/23 21:00 01/06/23 08:23 Docusate Sodium 100 Mg Capsule PO 100 mg Q12HR ZINA Administration Hydromorphone HCl 0.5 mg 01/05/23 16:55 01/06/23 19:02 Hydromorphone Hcl Inj (*Crx) 1 Mg/Ml Syr IV PUSH 0.5 mg Q2H PRN Administration Pain Rated 7-10 Ondansetron HCl 4 mg 01/05/23 16:55 Ondansetron Inj 4 Mg/2 Ml Vial IV PUSH Q8H PRN Nausea And Vomiting Oxycodone/Acetaminophen 1 tablet 01/05/23 16:55 Oxycodone/Acetaminophen (*Crx) 5-325 Mg Tablet PO Q4H PRN Mild Pain (1-3) Oxycodone/Acetaminophen 1 tab 01/05/23 16:55 01/06/23 01:59 Oxycodone/Acetaminophen (*Crx) 10-325 Mg Tablet PO 1 tab Q4H PRN Administration Moderate Pain (4-6) Senna/Docusate Sodium 1 tab 09
--- NOTE | 2023-01-06 19:10 | WPDHPUPDATE1 ---
History and Physical Update Update Date/Time: 01/06/23 19:10 History and Physical has been reviewed, including an updated exam of the patient. There are NO changes in the patient's condition. Risks, benefits, and alternatives have been discussed and questions answered. Patient agrees to proceed with procedure. This will be a thoracic wound exploration for hematoma.
--- NOTE | 2023-01-06 19:36 | P.PNAN_ITS ---
Anes - Eval Final PreProcedure Day of Procedure 01/06/23 19:36 Patient weight: normal Heart: regular rate and rhythm Lungs: clear to auscultation Airway: Mallampati scale class II Neurological: alert and oriented Last oral intake: >/= 8 hours ASA classification: III Emergent: no Anesthetic plan: proceed Anesthesia type and monitoring: general ETT and standard monitoring Results Review: All pre-operative results and documents have been reviewed as part of the pre- operative evaluation. Informed Consent: The patient's anesthetic plan and its attendant risks and benefits were discussed with the patient/family/POA. Questions were solicited and answers provided to the satisfaction of the patient/family/POA.
--- NOTE | 2023-01-06 20:11 | W.PM.PROC2 ---
Procedure Note - Detailed Date of Procedure 01/06/23 Pre-op Diagnosis Status post thoracic hardware removal with postop seroma Post-op Diagnosis Same Procedure Performed Exploration thoracic wound for hematoma or seroma Surgeon Alex Zavala MD Anesthesia General Description of Procedure The patient was brought to the operating room in the supine position, was sedated, intubated placed under general anesthesia in routine fashion. She was then turned into the prone position on a Andrew frame. There of operation on her back was examined, marked for incision, prepped and draped in routine sterile fashion. Incision was marked over the previous incision in the thoracic spine in the midline. This area was injected with 0.5% lidocaine with [id number] epinephrine. Intravenous antibiotics given prior to incision. Incision was made with a 10 blade scalpel. The subcutaneous stitches were cut at both the subcuticular level, the dermis and the fascia. Seroma was encountered and flow from the wound freely. There was only a moderate amount of fluid present which was serosanguineous. The wound was dried and bleeding was stopped in the tissues with bipolar cautery. The wound was irrigated with bacitracin irrigation with the eye factor being protected. A medium Hemovac drain was left in the subfascial position buried out to the inferior and left of the incision. The wound was then closed in layered fashion with 2-0 Vicryl interrupted sutures in the thoracic fascia and Alfredo's layer. 3-0 Vicryl buried interrupted sutures were placed in the dermis and the skin was closed with a running 4-0 Monocryl subcuticular stitch and dressed with Dermabond. The patient was allowed to wake up in the operating room was taken to the recovery room in stable condition. There were no immediate complications of this operation. All counts reported correct in the case. Blood loss was 10 cc. The patient was neurologically at her baseline postoperatively. Estimated Blood Loss 10 IV Fluids 1,000 Drains Yes Complications None Condition Stable Disposition PACU [facility] Billing Surgery - Charge Forward: Surgery Billing
[2023-01-06] MEDS: LACTATED RINGERS 1,000 ML 30 ML IV CONT (20:30)
[2023-01-06] MEDS: LIDO 1%/EPINEPHRINE/PF 1:200,000 30 ML VIAL INFILTRATE (20:34)
[2023-01-06] MEDS: ceFAZolin 1 GM/NS 50 ML 1 GM/50 ML BAG IVPB (22:04)
[2023-01-07] MEDS: HYDROmorphone HCL INJ (*CRX) 1 MG/ML SYR 0.5 MG IV PUSH ×5 (01:27→21:56)
[2023-01-07] MEDS: BENZOCAINE/MENTHOL (*BKC) 18 EA LOZENGE 1 LOZENGE PO (03:26)
[2023-01-07 03:44] VITALS: BP 102/46; PULSE 77; RESP 12; TEMP 36.4; O2SAT 99
[2023-01-07] MEDS: ceFAZolin 1 GM/NS 50 ML 1 GM/50 ML BAG IVPB ×2 (05:21→21:40)
[2023-01-07 08:00] VITALS: BP 120/83; PULSE 80; RESP 18; TEMP 37.4; O2SAT 99
[2023-01-07] MEDS: clonazePAM (*CRX) 0.5 MG TABLET 1 MG PO ×2 (08:22→21:40)
[2023-01-07] MEDS: DOCUSATE SODIUM 100 MG CAPSULE PO ×2 (08:22→21:40)
[2023-01-07] MEDS: oxyCODONE/ACETAMINOPHEN (*CRX) 10-325 MG TABLET 1 TAB PO ×4 (09:37→21:40)
--- NOTE | 2023-01-07 11:55 | WPDANESPN ---
Anes - Prog Note Post-Op Date/Time: 01/07/23 11:55 Cardiovascular status: normal Respiratory status: normal Airway patency: baseline Mental status: baseline Post-Op hydration status: normal Vital Signs: Last Vital Signs Temp 37.4 C 01/07/23 08:00 Pulse 80 01/07/23 08:00 Resp 18 01/07/23 08:00 BP 120/83 01/07/23 08:00 Pulse Ox 99 01/07/23 08:00 O2 Del Method Room Air 01/06/23 21:30 O2 Flow Rate 01/06/23 20:45 Pain Score (VAS): 4/10 I/O: Intake & Output 01/06/23 01/07/23 01/07/23 23:59 07:59 15:59 Intake Total 2730 500 240 Output Total 30 Balance 2730 470 240 Post-procedural complaints: none Patient Feedback: Patient satisfied with anesthetic care.
--- NOTE | 2023-01-07 14:39 | PCOTNOTE ---
Attempted to see pt. for occupational therapy evaluation. Pt. declined at this time stating her will do it all for her and she remembers information and education from previous visit. Pt. educated on benefits of OT services if wanted and pt. in agreement. Nursing aware. Following.
[2023-01-07 15:13] VITALS: BP 132/89; PULSE 104; RESP 18; TEMP 37.1; O2SAT 100
--- NOTE | 2023-01-07 16:54 | PC.NURSE ---
Pt has had multiple complaints today. Pt concerned about drain, pain control, when doctor will see her, and the overall size of the incision on her back. This nurse has been in with the patient at least once an hour this shift. Pain control has been difficult despite medications given. MD came in to see pt. and removed the drain. Pt was not happy about drain being removed. Pt felt like MD was not listening to her concerns and left before she could ask all of her questions. Pt became visibly and audibly more upset as the day has gone on. Pt stated that she was going to take this to the higher ups . Pt advocate called to come and talk to patient. Cracker Off made aware of situation. Pt IV went bad. Multiple calls to MD made to ask about fresh IV access if patient may discharge today. Awaiting return call. MD is in procedures this afternoon. Pt increasingly agitated. Pt feels like her incision is getting bigger again. Noted left side swelling. Pt very unhappy at this time and wanting to see the MD. This nurse made pt aware that messages have been left and we should hear from him after his procedures are done for the day. Pt agitated and tearful.
[2023-01-07 19:59] VITALS: BP 119/80; PULSE 79; RESP 18; TEMP 36.4; O2SAT 99
--- NOTE | 2023-01-07 20:34 | PC.NURSE ---
Patient has complaints changes in sensation to feet and increased swelling to incision area. As reported per patient and day nurse, Sally was to return to see patient after drain was removed today. Called warehouse assembly worker to follow up on how to go about follow up for patients. Per Norma this nurse is to follow up with oracle solutions architect physician Cynthia. Cynthia called through exchange.
--- NOTE | 2023-01-07 20:49 | PC.NURSE ---
Cynthia returned call. History and update on patient given. Wastewater Process Engineer at side during phone call noted that physician was bothered by call. States she will call physician directly. 2019: Sally called back. Stated that he had seen the patient for the day and that current complaints were in no way associated with the surgery. It was suggested that we get the patient out of bed and walk with her. No new orders to address pain. Will continue to monitor patient.
--- NOTE | 2023-01-07 23:01 | WPDNEUROSGPN ---
Subjective Date/time seen: 01/07/23 23:01 Interval history: Sathya is postop day 1 status post seroma removal and postop day 2 status post removal of posterior instrumentation on the left at T11-L1. She is doing well. Although, she is taking significant amount of pain medication. Apparently she is being given Dilaudid every 2 hours and Percocet intermittently. She does not have any new neurologic issues in her lower extremities. Physical exam: Strength is normal the bilateral lower extremities to direct confrontation. Sensation is intact light touch throughout the lower extremities. Her wound is clean, dry and intact. Assessment: Sathya is doing well. We will reverse with pain medication use and have her take the Percocet and is scheduled way and try to reduce her delighted use hopefully towards discharge. Objective Data Vital Signs Vital Signs: Vital Signs - 24 hr 01/06/23 23:47 01/07/23 03:44 01/07/23 08:00 Temperature 97.6 F 97.5 F L 99.3 F Pulse Rate 63 77 80 Respiratory Rate 12 12 18 Blood Pressure 104/67 102/46 L 120/83 Pulse Oximetry 97 99 99 Oxygen Delivery 01/07/23 12:32 01/07/23 08:00 01/07/23 15:13 Temperature 98.7 F Pulse Rate 104 H Respiratory Rate 18 Blood Pressure 132/89 Pulse Oximetry 100 Oxygen Delivery Room Air Room Air 01/07/23 19:59 Temperature 97.6 F Pulse Rate 79 Respiratory Rate 18 Blood Pressure 119/80 Pulse Oximetry 99 Oxygen Delivery Intake/Output Intake/Output: Intake & Output 01/04/23 01/05/23 01/06/23 01/07/23 23:59 23:59 23:59 23:59 Intake Total 250 5170 1510 Output Total 30 Balance 250 5170 1480 Meds/Results Medications: Active Medications Generic Name Dose Route Start Last Admin Trade Name Freq PRN Reason Stop Dose Admin Al Hydrox/Mg Hydrox/Simethicone 20 ml 01/05/23 16:55 Mag Hydrox/Al Hydrox/Simeth 30 Ml Udc PO Q4H PRN Indigestion/Heartburn Benzocaine 1 lozenge 01/05/23 17:54 01/07/23 03:26 Benzocaine/Menthol (*Bkc) 18 Ea Lozenge PO 1 lozenge PRN PRN Administration Sore Throat Bisacodyl 10 mg 01/05/23 16:55 Bisacodyl 10 Mg Suppository RECTAL DAILY PRN Constipation Clonazepam 1 mg 01/05/23 21:00 01/07/23 21:40 Clonazepam (*Crx) 0.5 Mg Tablet PO 1 mg Q12HR ZINA Administration Cyclobenzaprine HCl 10 mg 01/05/23 16:55 01/05/23 20:33 Cyclobenzaprine Hcl 10 Mg Tablet PO 10 mg TID PRN Administration Muscle Spasms Docusate Sodium 100 mg 01/05/23 21:00 01/07/23 21:40 Docusate Sodium 100 Mg Capsule PO 100 mg Q12HR ZINA Administration Hydromorphone HCl 0.5 mg 01/05/23 16:55 01/07/23 12:38 Hydromorphone Hcl Inj (*Crx) 1 Mg/Ml Syr IV PUSH 0.5 mg Q2H PRN Administration Pain Rated 7-10 Cefazolin Sodium 1 gm in 50 mls @ 100 mls/hr 01/06/23 21:00 01/07/23 21:40 Ancef 1 Gm/Ns 50 Ml IVPB 100 mls/hr Q8H ZINA Administration Ondansetron HCl 4 mg 01/05/23 16:55 Ondansetron Inj 4 Mg/2 Ml Vial IV PUSH Q8H PRN Nausea And Vomiting Oxycodone/Acetaminophen 1 tablet 01/05/23 16:55 Oxycodone/Acetaminophen (*Crx) 5-325 Mg Tablet PO Q4H PRN Mild Pain (1-3) Oxycodone/Acetaminophen 1 tab 01/07/23 14:00 01/07/23 21:40 Oxycodone/Acetaminophen (*Crx) 10-325 Mg Tablet PO 1 tab Q4HR ZINA Administration Senna/Docusate Sodium 1 tab 01/05/23 16:55 Senna/Docusate Sodium Tablet PO HS PRN Constipation
[2023-01-08] VITALS: BP 100/53; PULSE 70; RESP 16; TEMP 36.2; O2SAT 97
[2023-01-08] MEDS: oxyCODONE/ACETAMINOPHEN (*CRX) 10-325 MG TABLET 1 TAB PO ×5 (00:30→20:35)
[2023-01-08] MEDS: ONDANSETRON INJ 4 MG/2 ML VIAL IV PUSH ×2 (00:30→17:38)
[2023-01-08 06:04] VITALS: BP 125/82; PULSE 73; RESP 16; TEMP 36.8; O2SAT 99
[2023-01-08] MEDS: ceFAZolin 1 GM/NS 50 ML 1 GM/50 ML BAG IVPB ×3 (06:15→20:36)
[2023-01-08] MEDS: CYCLOBENZAPRINE HCL 10 MG TABLET PO (06:18)
[2023-01-08 08:00] VITALS: PULSE 73; RESP 16; O2SAT 99
[2023-01-08] MEDS: DOCUSATE SODIUM 100 MG CAPSULE PO ×2 (08:52→20:35)
[2023-01-08] MEDS: clonazePAM (*CRX) 0.5 MG TABLET 1 MG PO ×2 (08:53→20:34)
[2023-01-08] MEDS: HYDROmorphone HCL INJ (*CRX) 1 MG/ML SYR 0.5 MG IV PUSH ×2 (09:41→12:20)
[2023-01-08 10:55] VITALS: TEMP 36.8
[2023-01-08 14:00] VITALS: BP 118/75; PULSE 82; RESP 16; TEMP 37.1; O2SAT 99
[2023-01-08] MEDS: oxyCODONE/ACETAMINOPHEN (*CRX) 5-325 MG TABLET 1 TABLET PO (15:29)
[2023-01-08] MEDS: HYDROmorphone HCL (*CRX) 2 MG TABLET PO ×2 (17:38→19:11)
[2023-01-08] MEDS: NICOTINE (*PBKC) 7 MG PATCH 1 PATCH TRANSDERM (18:20)
[2023-01-08 20:00] VITALS: BP 111/64; PULSE 90; RESP 16; TEMP 36.4; O2SAT 100
--- NOTE | 2023-01-08 20:57 | PC.NURSE ---
2042: CALLED PATIENT UPDATE TO [facility]. MEDICATION CHANGES ORDERED. SPOKE WITH PATIENT ABOUT MEDICATION CHANGES AND OVERNIGHT MONITORING. AGREEABLE WITH NEW DIRECTION OF CARE.
--- NOTE | 2023-01-08 21:32 | WPDNEUROSGPN ---
Progress Note: A&P Assessment and Plan (1) Status post thoracic spinal fusion: Code(s): Z98.1 - Arthrodesis status Status: Acute Assessment and Plan: I have made some changes to the pain medications and muscle relaxants today to see if we can achieve good pain control and adequate mobilization independently so that she can be discharged to home. This has not been successful thus far. I changed her Percocet to Dilaudid and her muscle relaxant to Valium today. We will see how that does throughout the day and overnight. She has a new complaint of headache today. We will continue to observe this for now. It does not seem to be postural and no exposure of the dura was performed during any of her recent operations. Jillian persists in having discomfort related to her original injury. I have no good explanation for the intermittent weakness and numbness in her legs. She cindy had these symptoms this complaint all long and perhaps it relates to her original injury. Radiographically no compression on the spinal cord or nerve roots exists at this point. However, I doubt the Jillian will be able to return to normal functioning in the near future including the activities of her employment. Hopefully removing the instrumentation on left side we will give her a modicum of relief but I doubt that she will be able to maintain postures or activity for any length of time for the foreseeable future in an unrestricted way. Again, her original injury was a 3 column injury of the spine which is serious and the stabilizing. Luckily she has not suffered any radiographically apparent direct neurologic injury but the structural component continues to bother her despite stabilization. I am also not certain why she has as much swelling as she does. Wound exploration performed 2 days ago did not reveal much except seromatous fluid. I have never heard of, nor seen, an allergy to I factor but I suppose it is possible, albeit unlikely. We will continue to play with her medications and have her continue to participate in physical therapy until adequate pain control is achieved and she can function independently at home on in a limited way. Subjective Date/time seen: 01/08/23 21:32 Interval history: Jillian is postop day 3 status post removal of T12-L1 posterior instrumentation and redo posterolateral fusion on the left and postop day 2 status post wound exploration for what turned out to be a small seroma. She continues to have significant swelling near her incision. She has difficulty laying on her back and attempts to lay on her side most of the time. Pain control is also been an issue. She continues to require IV pain medication. While she has good strength to confrontation and good sensation she has intermittent complaints of numbness and weakness in her legs and at times has difficulty when she walks with her legs giving out. She does not report any new bowel or bladder difficulties. Exam Narrative: She is moving her extremities with apparent good strength spontaneously in all muscle groups. Her wound is clean, dry and intact. There is swelling but no fluctuance. The area near her operation is exquisitely tender. Objective Data Vital Signs Vital Signs: Vital Signs - 24 hr 01/08/23 00:00 01/08/23 06:04 01/08/23 10:55 Temperature 97.2 F L 98.3 F 98.3 F Pulse Rate 70 73 Respiratory Rate 16 16 Blood Pressure 100/53 L 125/82 Pulse Oximetry 97 99 Oxygen Delivery 01/08/23 08:00 01/08/23 14:00 01/08/23 20:00 Temperature 98.7 F 97.6 F Pulse Rate 73 82 90 Respiratory Rate 16 16 16 Blood Pressure 118/75 111/64 Pulse Oximetry 99 99 100 Oxygen Delivery Room Air Intake/Output Intake/Output: Intake & Output 01/05/23 01/06/23 01/07/23 01/08/23 23:59 23:59 23:59 23:59 Intake Total 250 5170 1560 1260 Output Total 30 Balance 250 5170 1530 1260 Meds/Results Medications: Active Medications Generic
[2023-01-09] MEDS: HYDROmorphone HCL (*CRX) 2 MG TABLET PO ×3 (03:59→10:20)
[2023-01-09] MEDS: diazePAM (*CRX) 5 MG TABLET PO ×2 (03:59→17:51)
[2023-01-09 04:00] VITALS: BP 115/74; PULSE 65; RESP 18; TEMP 36.4; O2SAT 99
[2023-01-09] MEDS: ceFAZolin 1 GM/NS 50 ML 1 GM/50 ML BAG IVPB ×3 (05:58→21:03)
[2023-01-09 08:00] VITALS: BP 119/71; PULSE 70; RESP 16; TEMP 36.3; O2SAT 100
[2023-01-09] MEDS: DOCUSATE SODIUM 100 MG CAPSULE PO ×2 (08:17→21:03)
[2023-01-09] MEDS: clonazePAM (*CRX) 0.5 MG TABLET 1 MG PO ×2 (08:17→21:03)
[2023-01-09 12:00] VITALS: BP 125/74; PULSE 77; RESP 16; TEMP 35.8; O2SAT 100
--- NOTE | 2023-01-09 12:22 | WPDNEUROSGPN ---
Progress Note: A&P Assessment and Plan (1) Leg numbness: Code(s): R20.0 - Anesthesia of skin Status: Acute (2) Status post thoracic spinal fusion: Code(s): Z98.1 - Arthrodesis status Status: Acute Plan Jillian and I had a long discussion about her clinical course and especially the course since the surgery to remove the instrumentation on the left side. She states that she was doing well initially after that surgery until the swelling started to occur along her incision. This became more significant and with the presumptive diagnosis of hematoma I explored her wound but found only a mild seroma. She has not developed the same sort of focalized swelling along her incision line but generalized swelling to the left mainly of her incision. The amount of discomfort that she is having is not typical or expected. I do not have a good explanation for it. As she has not changed neurologically, and we did not expose the epidural space or any of her nerve roots I do not have concern for new neurologic compression. She has been able to be ambulatory albeit with discomfort on her own power. She is working on this further and is able to make transfers and ambulate independently. Again, pain is her main concern. An odd and rare potential issue would be allergy to something used during the operation. However, she has tolerated the types of sutures and other substances that we used during the procedure at previous operations. Still, it is not impossible to developed an allergy either to Vicryl suture or I factor. I spoke with the company that distributes I factor and they said they have not anecdotally seen any reports of allergies. I am not sure what could be done about that, in any case. Sathya and I both feel comfortable with her discharge if she attains good pain control. We will attempt this by increasing her PO dilaudid dose to 4 mg at every dose interval. She promises to increase her activity. Jillian is likely to continue to have discomfort related to the hardware in her back and problems related to the initial injury. For the foreseeable future I do not see her being able to maintain postures or activities, and to be distracted by pain. This will make it impossible for her to do the activities of her employment or any employment, most likely. She did attempt to return to work and could not do it. I think she felt pressured by financial concerns but was not really physically capable of returning to work. We will address this when we need to. Hopefully, once the discomfort she has been having over the last few days simmers down she will benefit from having the instrumentation out on the left side. This brings up another issue, that is, that she is not healing bone in a sturdy way. Hopefully the I factor and smoking cessation will help this process along. Subjective Date/time seen: 01/09/23 12:22 Interval history: Jillian is maybe doing a little bit better after to 2 mg allowed tablets p.o. today. Pain control continues to be her main issue. She is not having any bowel or bladder difficulty that is new. She continues to have numbness in the left lower extremity and occasionally gives out. This has been an issue for her going back almost to the initial injury. She states that it is not changed. She believes that her lower extremities are functioning as they have since before the 1st fusion operation. There is swelling and discomfort and extreme tenderness in her back especially on the left side. Exam Narrative: She is moving all her extremities spontaneously with good apparent strength. She has subjective feelings of numbness in the left lower extremity but light touch sensation is intact. Her wound is clean, dry and intact. There is swelling mostly to the left the incision. Objective Data Vital Signs Vital Signs: Vital Signs - 24 hr 01/08/23 14:00 01/08/23 20:00 01/08/23 20:00 Temperature 98.7 F 9
[2023-01-09] MEDS: ONDANSETRON INJ 4 MG/2 ML VIAL IV PUSH (13:21)
[2023-01-09] MEDS: HYDROmorphone HCL (*CRX) 2 MG TABLET 4 MG PO (13:26)
--- NOTE | 2023-01-09 14:00 | WPDCN ---
Assessment and Plan Assessment and plan (1) Postoperative seroma: Status: Acute Assessment and Plan: Postoperative day 4 status post removal of hardware left T12-L1 with redo posterolateral fusion T12-L1 and postoperative day 3 status post exploration of thoracic wound for small seroma. The ongoing swelling and pain in her back is likely due to the same. Doubt infection however will check CBC, CRP, and procalcitonin. Allergic reaction also very unlikely. (2) Status post thoracic spinal fusion: Code(s): Z98.1 - Arthrodesis status Status: Acute Assessment and Plan: As detailed above. Wound care, pain control, DVT prophylaxis deferred to primary service. (3) Anxiety: Code(s): F41.9 - Anxiety disorder, unspecified Status: Acute Assessment and Plan: Continue clonazepam as needed. Plan Thank you for allowing us to participate in this patient's care. Please do not hesitate to contact us with any questions. HPI Data of Consult Date/Time: 01/09/23 14:00 Requesting Physician: Alex Zavala MD Consult Narrative Reason for consult: Pain and swelling in back. Narrative: This is 32-year-old female whom the hospitalist service has been consulted for our opinion regarding pain and swelling in the mid back postoperatively. Her medical history is significant for anxiety and depression. She had previously undergone T12-L1 posterior instrumented fusion for ligamentous injury and fracture at that level and due to ongoing pain she underwent hardware removal on the left side with redo posterolateral on 01/05/[address] Zavala. The following day she developed swelling at the incision site and was taken back to the OR for presumed hematoma however only a small seroma was noted on wound exploration. Since that time she has continued to have ongoing pain and the swelling remains. She reports chills but denies fever and sweats. Appetite has been okay. She has mild tingling in the left leg which has been present since her initial injury 2 years ago. No saddle anesthesia, urine retention, or bowel incontinence. Review of Systems Review of Systems: Twelve systems were reviewed and are negative except for as per HPI. [facility] Past Medical History Medical History (Updated 01/09/23 @ 21:01 by Domonique Vega PA-C) Anxiety Depression Sphincter of Oddi dysfunction Surgical History Surgical History (Updated 01/09/23 @ 14:14 by Domonique Vega PA-C) History of biliary duct stent placement History of cholecystectomy History of thoracic spinal fusion Status post hardware removal on the left and redo posterolateral fusion at T12-L1 on 01/05/2023. Family History Family History Other No pertinent family history Social History Social History (Updated 01/09/23 @ 20:58 by Domonique Vega PA-C) Social History: Surrogate medical decision maker: Rafael Gonsalez (spouse) or Vita Nikhil (mother). Code status: Full code. Smoking packs per day: 0.5 Smoking cigarettes per day: 10.0 Years smoked: 13 Smoking pack-years: 6.50 Smoking status: Current every day smoker Tobacco type: cigarettes Second hand tobacco smoke exposure: Yes Additional smoking assessment comments: Social smoker, 2 to 3 a day. Alcohol intake: never Substance use: current Substance use type: marijuana Lack of Transportation: No Lack of Food: Never True Current Housing: I Have Housing Concerned About Future Housing: No Difficulty Paying Gas/Electric Bills: No Difficulty Paying for Meds: No Currently Unemployed: No Education: High School Diploma/GED Difficulty w/ Childcare or Family Care: No Living arrangements: with family Spiritual care concerns: No Meds Home Medications and Allergies Home Medications Medication Instructions Recorded Confirmed Type clonazepam 1 mg tablet 1 mg
[2023-01-09 15:17] LABS: Basophils Percent Auto 0.3 % (0.2-1.2); Eosinophils Absolute Auto 0.2 K/mm3 (0-0.3); Eosinophils Percent Auto 2.7 % (0-4.4); Hematocrit 37.7 % (37.0-47.0); Hemoglobin 12.8 g/dL (12.0-15.0); Immature Granulocyte Absolute 0.01 K/mm3 (0.00-0.031); Immature Granulocyte Percent A 0.2 % (0-0.5); Lymphocytes Absolute Auto 1.87 K/mm3 (0.9-3.2); Lymphocytes Percent Auto 31.4 % (18.3-44.2); Mean Corpuscular Hemoglobin 29.6 pg (26-34); Mean Corpuscular Volume 87.3 fl (80-100); Mean Platelet Volume 10.7 fl (7.4-10.4); Monocytes Absolute Auto 0.4 K/mm3 (0.1-0.6); Monocytes Percent Auto 7.4 % (2.6-8.5); Neutrophils Absolute Auto 3.5 K/mm3 (1.3-6.7); Platelet Count Result 261 k/mm3 (150-375); Red Blood Count 4.32 M/mm3 (4.2-5.4); Red Cell Distribution Width 11.9 % (11.5-14.5)
[2023-01-09 15:33] LABS: Alanine Aminotransferase 99 U/L (6-35); Albumin Level 4.4 g/dL (3.5-5.1); Alkaline Phosphatase 82 U/L (38-126); Anion Gap 9 mmol/L (8-16); Aspartate Amino Transferase 134 U/L (14-36); Bilirubin,Total 0.9 mg/dL (0.2-1.3); Blood Urea Nitrogen 6 mg/dL (7-17); CRP 3.2 mg/dL (<1.0); Calcium 9.2 mg/dL (8.4-10.2); Carbon Dioxide 27 mmol/L (22-30); Chloride 101 mmol/L (98-107); Estimated CRCL calculation 89 ml/min; Estimated Glomerular Filt Rate > 60; Glucose 100 mg/dL (65-110); Potassium 3.4 mmol/L (3.4-5.0); Sodium 137 mmol/L (137-145)
[2023-01-09 16:00] VITALS: BP 124/75; PULSE 59; RESP 16; TEMP 36.8; O2SAT 100
[2023-01-09 16:11] LABS: Procalcitonin 0.1 ng/mL
[2023-01-09] MEDS: HYDROmorphone HCL INJ (*CRX) 1 MG/ML SYR 0.5 MG IV PUSH ×2 (17:52→21:02)
--- NOTE | 2023-01-09 20:13 | PCDIET ---
PATIENT COMPLAINS OF POKING SENSATION ON BACK. NOTED MARKERS ON PATIENTS BACK UPPER AND BENEATH INCISION SITE. CALLED CT TO CONFIRM AND CHECK TO SEE IF NECESSARY. CLEARED TO REMOVE FROM SITES.
[2023-01-09 21:03] VITALS: BP 110/67; PULSE 64; RESP 18; TEMP 36.4; O2SAT 97
[2023-01-10] MEDS: HYDROmorphone HCL INJ (*CRX) 1 MG/ML SYR 0.5 MG IV PUSH ×2 (00:12→05:24)
--- NOTE | 2023-01-10 00:56 | PC.NURSE ---
2nd dose IV dilaudid given. Patient refusing 4mg PO dilaudid due to associated nausea/vomiting when taken. Encouraged to try PO dosing along with zofran, as it has worked for her previously.
[2023-01-10 04:00] VITALS: BP 112/68; PULSE 78; RESP 18; TEMP 36.9; O2SAT 99
[2023-01-10] MEDS: ceFAZolin 1 GM/NS 50 ML 1 GM/50 ML BAG IVPB (05:24)
[2023-01-10 06:06] LABS: Hematocrit 36.7 % (37.0-47.0); Hemoglobin 12.5 g/dL (12.0-15.0); Mean Corpuscular HGB Conc 34.1 g/dl (32-36); Mean Corpuscular Hemoglobin 30.3 pg (26-34); Mean Corpuscular Volume 88.9 fl (80-100); Mean Platelet Volume 10.6 fl (7.4-10.4); Platelet Count Result 270 k/mm3 (150-375); Red Blood Count 4.13 M/mm3 (4.2-5.4); White Blood Count 5.6 K/mm3 (4.5-10.0)
[2023-01-10 06:17] LABS: Acetaminophen < 10 ug/mL (10-30)
[2023-01-10 06:21] LABS: Alanine Aminotransferase 122 U/L (6-35); Alkaline Phosphatase 76 U/L (38-126); Anion Gap 6 mmol/L (8-16); Aspartate Amino Transferase 142 U/L (14-36); Bilirubin,Total 0.6 mg/dL (0.2-1.3); Blood Urea Nitrogen 7 mg/dL (7-17); Calcium 9.1 mg/dL (8.4-10.2); Carbon Dioxide 29 mmol/L (22-30); Chloride 103 mmol/L (98-107); Estimated CRCL calculation 89 ml/min; Estimated Glomerular Filt Rate > 60; Glucose 100 mg/dL (65-110); Potassium 3.4 mmol/L (3.4-5.0); Sodium 138 mmol/L (137-145)
[2023-01-10 06:55] LABS: Hepatitis B Surface Antigen Negative (Negative)
[2023-01-10 07:00] LABS: HAV RESULT Negative (Negative); Hepatitis B Core IgM Result Negative (Negative)
[2023-01-10 07:12] LABS: Hepatitis C Virus Antibody Negative (Negative)
[2023-01-10 08:00] VITALS: BP 137/75; PULSE 77; RESP 14; TEMP 36.3; O2SAT 100
[2023-01-10] MEDS: DOCUSATE SODIUM 100 MG CAPSULE PO (09:37)
[2023-01-10] MEDS: ONDANSETRON INJ 4 MG/2 ML VIAL IV PUSH (09:37)
[2023-01-10] MEDS: clonazePAM (*CRX) 0.5 MG TABLET 1 MG PO (09:37)
[2023-01-10] MEDS: HYDROmorphone HCL (*CRX) 2 MG TABLET 4 MG PO (09:37)
--- NOTE | 2023-01-10 12:34 | PM.IMPN ---
Subjective Date/time seen: 01/10/23 12:34 Objective Data Vital Signs Vital Signs: Vital Signs - 24 hr 01/09/23 16:00 01/09/23 21:03 01/09/23 20:00 Temperature 36.8 C 36.4 C Pulse Rate 59 L 64 Respiratory Rate 16 18 Blood Pressure 124/75 110/67 Pulse Oximetry 100 97 Oxygen Delivery Room Air 01/10/23 04:00 01/10/23 08:00 01/10/23 08:00 Temperature 36.9 C 36.3 C L Pulse Rate 78 77 77 Respiratory Rate 18 14 14 Blood Pressure 112/68 137/75 Pulse Oximetry 99 100 100 Oxygen Delivery Room Air Intake/Output Intake/Output: Intake & Output 01/07/23 01/08/23 01/09/23 01/10/23 23:59 23:59 23:59 23:59 Intake Total 1560 1260 1200 540 Output Total 30 Balance 1530 1260 1200 540 Meds/Results Medications: Active Medications Generic Name Dose Route Start Last Admin Trade Name Freq PRN Reason Stop Dose Admin Al Hydrox/Mg Hydrox/Simethicone 20 ml 01/05/23 16:55 Mag Hydrox/Al Hydrox/Simeth 30 Ml Udc PO Q4H PRN Indigestion/Heartburn Benzocaine 1 lozenge 01/05/23 17:54 01/07/23 03:26 Benzocaine/Menthol (*Bkc) 18 Ea Lozenge PO 1 lozenge PRN PRN Administration Sore Throat Bisacodyl 10 mg 01/05/23 16:55 Bisacodyl 10 Mg Suppository RECTAL DAILY PRN Constipation Clonazepam 1 mg 01/05/23 21:00 01/10/23 09:37 Clonazepam (*Crx) 0.5 Mg Tablet PO 1 mg Q12HR ZINA Administration Diazepam 5 mg 01/08/23 21:04 01/09/23 17:51 Diazepam (*Crx) 5 Mg Tablet PO 5 mg Q8HR PRN Administration Anxiety Docusate Sodium 100 mg 01/05/23 21:00 01/10/23 09:37 Docusate Sodium 100 Mg Capsule PO 100 mg Q12HR ZINA Administration Hydromorphone HCl 0.5 mg 01/05/23 16:55 01/10/23 05:24 Hydromorphone Hcl Inj (*Crx) 1 Mg/Ml Syr IV PUSH 0.5 mg Q2H PRN Administration Pain Rated 7-10 Hydromorphone HCl 4 mg 01/09/23 13:00 01/10/23 09:37 Hydromorphone Hcl (*Crx) 2 Mg Tablet PO 4 mg Q4H PRN Administration Pain Rated 7-10 Cefazolin Sodium 1 gm in 50 mls @ 100 mls/hr 01/06/23 21:00 01/10/23 05:55 Ancef 1 Gm/Ns 50 Ml IVPB Infused Q8H ZINA Infusion Nicotine 1 patch 01/09/23 09:00 01/10/23 09:37 Nicotine (*Pbkc) 7 Mg Patch TRANSDERM Not Given QAM ZINA Ondansetron HCl 4 mg 01/05/23 16:55 01/10/23 09:37 Ondansetron Inj 4 Mg/2 Ml Vial IV PUSH 4 mg Q8H PRN Administration Nausea And Vomiting Oxycodone/Acetaminophen 1 tablet 01/05/23 16:55 01/08/23 15:29 Oxycodone/Acetaminophen (*Crx) 5-325 Mg Tablet PO 1 tablet Q4H PRN Administration Mild Pain (1-3) Senna/Docusate Sodium 1 tab 01/05/23 16:55 Senna/Docusate Sodium Tablet PO HS PRN Constipation Radiology Results: ITS Impressions Thoracic Spine CT 01/09/23 19:12 IMPRESSION: 1. Chronic T12 laminectomy and T12-L1 instrumented posterior spinal fusion With postoperative changes of recent removal of the left-sided alma and pedicle screws. 2. 4 x 1.5 x 1.4 cm relatively superficial subcutaneous excellent likely representing a seroma along the midline posterior to the operative bed. 3. Asymmetric swelling of the left paraspinal musculature with 3.6 x 2.3 x 0.6 cm irregular region of high attenuation likely bone graft material within the superficial aspect of the paraspinal musculature. 4. Chronic mild right anterior superior endplate compression fracture of L1. ADDENDUM: 01/09/231936 ADDENDUM: Upon further review the seroma along the midline and extends more cephalad to the level of the T11 spinous processes with a craniocaudal length of 10.7 cm. Labs Labs: Laboratory Results - last 24 hr 01/09/23 01/10/23 14:57 05:34 WBC 6.0 5.6 RBC 4.32 4.13 L Hgb 12.8 12.5 Hct 37.7 36.7 L MCV 87.3 88.9 MCH 29.6 30.3 MCHC 34.0 34.1 RDW 11.9 12.0 Plt Count 261 270 MPV 10.7 H 10.6 H Immature Gran % (Auto) 0.2 Neut % (Auto) 58.0 Lymph % (Auto) 31.4 [place] % (Auto) 7.4 Eos % (Auto
--- NOTE | 2023-02-15 20:57 | PM.DS ---
DS: Admitting Diagnosis Discharge Date 01/10/23 Admitting Diagnosis Status post T12-L1 posterolateral instrumented fusion for ligamentous injury with hardware related pain DS: Discharge Diagnosis Discharge Diagnosis (1) Status post thoracic spinal fusion: Code(s): Z98.1 - Arthrodesis status Status: Acute DS: Summary Hospital Course Hospital Course: the patient was presented to the hospital and taken to the operating room on 01/05/2023 where removal of left T12-L1 instrumentation was performed without complication. Patient went to the floor postoperatively. Under 1st was stopped of day she developed swelling at 1st which was focal along the suture line slightly to the left and then generalized over the paraspinal area and was presumed to be a hematoma. She was therefore taken back to the operating room on 01/06/2023 where an exploration of the wound was performed. No significant hematoma was discovered. Some seroma was discovered and drained. A drain was left in place. Patient returned to the floor. Physical and occupational therapy were involved in her care. She had recurrent swelling but not a focal nature. This was generalized around the incision towards the left. As no significant fluid collection had been discovered previously no reoperation was recommended. Pain control was an issue. The drain has been removed as the output was low. Pain medications had to be shifted and finally by mouth Dilaudid was used effectively. On 01/10/2023 at patient was able to be discharged. She was making transfers and ambulating independently. She was not having any bowel or bladder difficulty. She had no neurologic issues in any of her extremities. She did complain of left lower extremity discomfort and numbness which had been present since before her 1st fusion operation. However as she was neurologically at her baseline with her pain controlled adequately she was able to be discharged to home in stable condition. Time Spent with Patient Time attestation: Total time spent providing and/or coordinating discharge services: Discharge Plan Discharge Attending physician on discharge: Alex Zavala Consulting providers: Domonique Vega Paul Discharging Clinician: Alex Zavala Anticipated Discharge Date/Time: 01/10/23 11:14 Patient Disposition: Home, Self-Care Activity: may shower Diet: as tolerated and other - see discharge instructions Wound Care Instructions: follow printed instructions Discharge Instructions: INSTRUCTIONS AFTER YOUR LUMBAR LAMINECTOMY/DECOMPRESSION/FORAMINOTOMY/DISCECTOMY Incisions may be closed with either: Steri-strips (let them wear off on their own). Surgical glue (let it peel off on its own). Sutures or divya (call the office for an appointment to have these removed). Keep the incision dry for the first three days after surgery. Never apply ointments or lotions to the incision. The incision should be checked daily. Notify the office if there is drainage, redness, or if you have fever with a temperature of over 100 degrees. After the third postop day, it is okay to shower. Let soap and water run over your incision. No soaking in a tub, hot tub, or pool for at least one month. You are encouraged to walk as much as comfortable, with assistance as needed. For example, it may be beneficial to walk short distances hourly during the waking hours and gradually increase walking during your recovery period. Fatigue can be common. Avoid any bending, heavy lifting, twisting movements. You have an [id number]-pound lift restriction until further advised by your physician (A gallon of milk weighs eight pounds). Make frequent position changes, avoiding long periods of sitting. Try not to sit more than 30 minutes at a time. You may engage in sexual activity in two weeks as tolerated. No housework, especially vacuuming, making beds, or doing laundry until seen in the
== END 2023-01-10 13:08 | disposition home or self-care (01) | DRG 304 ==
LOC: ANHSURGERY 19:25 → ANH3MED 19:25
PROVIDERS: Physician Assistant; Admitting Provider Neurological Surgery; PCP Family Medicine; Visit Provider Neurological Surgery
PROC: 0RPA04Z Removal of Internal Fixation Device from Thoracolumbar Vertebral Joint, Open Approach (ICD-10-PCS; principal; 2023-01-05 14:30)
PROC: 0J9700Z Drainage of Back Subcutaneous Tissue and Fascia with Drainage Device, Open Approach (ICD-10-PCS; principal; 2023-01-06 19:00)
DX: T84.84XA Pain due to internal orthopedic prosthetic devices, implants and grafts, initial encounter (principal); M96.842 Postprocedural seroma of a musculoskeletal structure following a musculoskeletal system procedure; Z98.1 Arthrodesis status; F17.210 Nicotine dependence, cigarettes, uncomplicated; F41.9 Anxiety disorder, unspecified; F32.A Depression, unspecified; Z90.49 Acquired absence of other specified parts of digestive tract; Z96.89 Presence of other specified functional implants; Z28.21 Immunization not carried out because of patient refusal
CPT/HCPCS: 36415; 72129; 80053; 80074; 80307; 84145; 85025; 85027; 86140; 87040; 97161; A9270; C1713; G0378; G0379; J0330; J0690; J1100; J1170; J2250; J2405; J2704; J3010; J3480; J7120; Q9967

== ENCOUNTER 2023-02-02 10:59 | Outpatient (CLI) | payer OTHER, SELFPAY ==
--- NOTE | ~2023-02-02 | US_ITS ---
US abdomen limited INDICATION: Elevated liver function tests PROCEDURE: Realtime right upper abdominal ultrasound. COMPARISON: No prior studies for comparison. FINDINGS: The pancreas is normal without focal mass or pancreatic ductal dilation. Liver echotexture is normal without focal mass or intrahepatic biliary dilatation. There is normal directional flow i n the portal vein. Gallbladder is surgically absent. Common bile duct measures 4 mm. No sonographic Marino's sign. IMPRESSION: 1: Unremarkable limited abdominal ultrasound postcholecystectomy. Reviewed, dictated and finalized at location L.
== END 2023-02-02 11:00 | disposition home or self-care (01) ==
PROVIDERS: PCP Family Medicine; Visit Provider Family Medicine
DX: R79.89 Other specified abnormal findings of blood chemistry (principal)
CPT/HCPCS: 76705

== ENCOUNTER 2023-05-20 10:11 | Observation (INO) | payer OTHER, SELFPAY ==
[2023-05-20] VITALS (11 sets, daily range): BP systolic 104–109; BP diastolic 57–69; PULSE 71–98; O2SAT 94–100; BMI 20.2
--- NOTE | ~2023-05-20 | US_ITS ---
US OB limited 05/20/2023 12:00 Indication: Evaluate cervical length and placenta Procedure: High-resolution Limited obstetrical ultrasound Comparison: Ultrasound dated 02/02/2023 Findings: There is a single living intrauterine in vertex presentation. Placenta is posteri or without previa measuring 4.8 cm to the cervix. Cervical length is 3.4 cm. Amniotic fluid is subjec tively normal. heart rate is 145 BPM. Impression: 1: Single living intrauterine in vertex presentation. 2: Posterior placenta without previa. Reviewed, dictated and finalized at location L. ER Impression: 1: Single living intrauterine in vertex presentation. 2: Posterior placenta without previa.
--- NOTE | ~2023-05-20 | US_ITS ---
US OB transvaginal 05/20/2023 12:00 Indication: Evaluate cervical length. Procedure: High-resolution Limited obstetrical ultrasound Comparison: No prior studies for comparison. Findings: There is a single living intrauterine in vertex presentation. heart rate is 145 BPM. Placenta is posterior measuring 4.8 cm to the cervix. Cervical length is 3.4 cm. Amniotic f luid volume is subjectively normal. Impression: 1: Single living intrauterine in vertex presentation. 2: Cervical length is 3.4 cm. Reviewed, dictated and finalized at location L. TENANCE WELDER Impression: 1: Single living intrauterine in vertex presentation. 2: Cervical length is 3.4 cm.
--- NOTE | 2023-05-20 11:38 | OBADM ---
This patient, Jillian Valle, admitted to the OB room OB Post 116 for observation. Patient/family oriented to hospital policies and general routines including ID bracelet, bed and alarms, visiting hours, pain management, procedures, bathroom and other care routines, personal items, smoking policy, room service/diet, and visiting hours. Patient/Family are encouraged to report perceived risks to care and to ask questions if they do not understand what they are told or what they should do.
[2023-05-20 12:07] LABS: Appearance Urine Clear (Clear); Bilirubin Urine Negative (Negative); Blood Urine Negative (Negative); Color Urine Yellow (Yellow); Glucose Urine UA Negative (Negative); Ketones Urine Negative (Negative); Leukocyte Esterase Ur Negative LEU/UL (NEGATIVE); Nitrate Urine Negative (Negative); Protein Urine Negative (Negative); Specific Grav Ur 1.007 (1.001-1.035); Urobilinogen Urine 0.2 mg/dL (<2.0)
[2023-05-20 12:25] LABS: Add Urine Microscopic? NO
--- NOTE | 2023-05-21 12:25 | P.PNOB_ITS ---
OB - Triage/Final Diagnosis Visit Information Date of evaluation: 05/20/23 Reason for evaluation: threatened labor Comments/Additional reasons for admission: I have assessed the risk for this patient, Jillian Rivera Leonard, and determined that she would benefit from observation care. Evaluation Laboratory results: Laboratory Tests 05/20/23 11:56 Urine Color Yellow Urine Appearance Clear Urine pH 7.0 Ur Specific [place] 1.007 Urine Protein Negative Urine Glucose (UA) Negative Urine Ketones Negative Ur Blood (Man) Negative Urine Nitrate Negative Urine Bilirubin Negative Urine Urobilinogen 0.2 Ur Leukocyte Esterase Negative
== END 2023-05-20 12:48 | disposition home or self-care (01) ==
PROVIDERS: Admitting Provider Obstetrics & Gynecology; PCP Family Medicine; Visit Provider Obstetrics & Gynecology
DX: O47.9 False labor, unspecified (principal); Z3A.22 22 weeks gestation of pregnancy
CPT/HCPCS: 76815; 76817; 81003; 87086; G0378; G0379

== ENCOUNTER 2023-07-14 10:18 | Observation (INO) | payer OTHER, SELFPAY ==
[2023-07-14] VITALS (42 sets, daily range): BP systolic 103–144; BP diastolic 66–101; PULSE 83–137; RESP 16; TEMP 36.8; O2SAT 93–99; BMI 22.0
--- NOTE | ~2023-07-14 | US_ITS ---
EXAMINATION: US OB limited DATE: 07/14/2023 12:30 INDICATION: Assess cervical length, presentation and amniotic fluid index during early third trimeste r . TECHNIQUE: Real-time ultrasound of the pelvis was performed with transabdominal probe. The interpreti ng radiologist was not present for the study. COMPARISON: None. FINDINGS: There is a single living fetus in vertex presentation. The placenta is posterior. heart rate i s 124 beats per minute (bpm). The amniotic fluid index is 9.5 cm, which is normal (5th%-95%: 9.0-33.4 cm at 30 weeks estimated gestational age). Cervical length measures 3.7 cm which is normal. IMPRESSION: 1. Single living fetus in vertex presentation with heart rate of 124 bpm bpm. 2. Normal amniotic fluid index of 9.5 cm. 3. Normal cervical length of 3.7 cm. Reviewed, dictated and finalized at location A.
--- NOTE | 2023-07-14 11:54 | PM.IMHP ---
H&P: HPI History of Present Illness Date/Time: 07/14/23 11:54 Chief Complaint: Leaking fluid Narrative: since 32-year-old 2 para 1 last menstrual period was 12/13/2022, EDC is 09/15/2023 confirmed by 10 week ultrasound who presents with spontaneous rupture membranes apparently from last night. This has been complicated by having spinal surgery with superiorly she was very early . She sees pain in his local was in has been relatively uncomplicated up to this point. She is ROM positive and is not andrea presently. [facility] Past Medical History Medical History Anxiety Depression Sphincter of Oddi dysfunction Surgical History Surgical History History of biliary duct stent placement History of cholecystectomy History of thoracic spinal fusion Status post hardware removal on the left and redo posterolateral fusion at T12-L1 on 01/05/2023. Family History Family History Other No pertinent family history Social History Social History Social History: Surrogate medical decision maker: Rafael Gonsalez (spouse) or Vita Nikhil (mother). Code status: Full code. Smoking packs per day: 0.5 Smoking cigarettes per day: 10.0 Years smoked: 13 Smoking pack-years: 6.50 Smoking status: Current every day smoker Tobacco type: cigarettes Second hand tobacco smoke exposure: Yes Additional smoking assessment comments: Social smoker, 2 to 3 a day. Alcohol intake: never Substance use: current Substance use type: marijuana Do You Feel Safe in your Home?: Yes Lack of Transportation: No Lack of Food: Never True Current Housing: I Have Housing Concerned About Future Housing: No Difficulty Paying Gas/Electric Bills: No Difficulty Paying for Meds: No Currently Unemployed: No Education: High School Diploma/GED Difficulty w/ Childcare or Family Care: No Living arrangements: with family Spiritual care concerns: No Meds Home Medications and Allergies Home Medications Medication Instructions Recorded Confirmed Type clonazepam 1 mg tablet 1 mg PO BID 04/01/22 06/25/23 History acetaminophen 300 mg-codeine 30 mg 1 tablet PO Q8H PRN pain 05/11/23 06/25/23 History tablet Allergies Allergy/AdvReac Type Severity Reaction Status Date / Time sulfamethoxazole Allergy Unknown Rash Verified 06/25/23 09:45 trimethoprim Allergy Unknown Rash Verified 06/25/23 09:45 Vital Signs Vital Signs - 24 hr 07/14/23 10:28 07/14/23 10:30 07/14/23 10:45 Pulse Rate 137 H 112 H 109 H Blood Pressure 137/100 H 120/79 117/75 Pulse Oximetry 07/14/23 10:57 07/14/23 11:02 07/14/23 11:07 Pulse Rate Blood Pressure Pulse Oximetry 99 98 97 07/14/23 11:12 07/14/23 11:16 07/14/23 11:17 Pulse Rate 101 H Blood Pressure 118/74 Pulse Oximetry 97 97 07/14/23 11:22 07/14/23 11:27 07/14/23 11:31 Pulse Rate 88 Blood Pressure 106/75 Pulse Oximetry 97 97 07/14/23 11:32 07/14/23 11:37 07/14/23 11:42 Pulse Rate Blood Pressure Pulse Oximetry 99 95 97 07/14/23 11:45 07/14/23 11:47 07/14/23 11:52 Pulse Rate 122 H Blood Pressure 144/101 H Pulse Oximetry 94 93 Exam Const: General: cooperative, healthy appearing, comfortable and average body habitus Orientation/consciousness: oriented to person, oriented to place and oriented to time HENMT: Head: normal to inspection Resp: Effort & Inspection: normal respiratory effort Cardio: Rate: regular rate Rhythm: regular rhythm Heart sounds: S1 normal heart sound present and S2 normal heart sound present GI: Inspection: normal to inspection ( Gravid soft uterus) : Speculum Exam - Vagina: normal appearance of the vagina ( clear fluid noted
--- NOTE | 2023-07-14 12:10 | OBADM ---
This patient, Jillian Valle, admitted to the OB room 111 for observation for premature ROM at 30 wks. Patient/family oriented to hospital policies and general routines including ID bracelet, bed and alarms, visiting hours, pain management, procedures, bathroom and other care routines, personal items, smoking policy, room service/diet, and visiting hours. Patient/Family are encouraged to report perceived risks to care and to ask questions if they do not understand what they are told or what they should do.
[2023-07-14] MEDS: LACTATED RINGERS 1,000 ML 75 ML IV CONT (12:24)
[2023-07-14] MEDS: MAGNESIUM SULF 20GM/WATER500ML 500 ML 50 MG IV CONT (12:25)
[2023-07-14] MEDS: BETAMETHASONE SOD PHOS/ACETATE 30 MG/5 ML VIAL 12 MG IM (12:29)
[2023-07-14] MEDS: AMPICILLIN 2 GM/NS 100 ML 2 GM/100 ML BAG IVPB (12:38)
--- NOTE | 2023-07-14 12:53 | PM.DS ---
DS: Admitting Diagnosis Discharge Date 07/14/2023 Admitting Diagnosis pre term rupture membranes DS: Discharge Diagnosis Discharge Diagnosis (1) premature rupture of membranes: Code(s): O42.919 - premature rupture of membranes, unspecified as to length of time between rupture and onset of labor, unspecified trimester Status: Acute DS: Summary Hospital Course Reason for hospitalization: patient was admitted with spontaneous rupture membranes at 31 weeks gestation. She underwent unsure ultrasound which showed NORMA of 9.5 vertex presentation with the cervix 3.7cm in length. She she was positive for ROM Plus. She was not andrea regularly. She received antibiotics Hospital Course: she also received a above steroids and was started on magnesium. Discussion was undertaken with [facility] who agreed to accept her. Time Spent with Patient Time attestation: Total time spent providing and/or coordinating discharge services: Exam Const: General: cooperative, healthy appearing and comfortable Nutritional Appearance: average body habitus Orientation/consciousness: oriented to person, oriented to place and oriented to time Resp: Effort & Inspection: normal respiratory effort GI: Inspection: normal to inspection ( Soft gravid uterus) : Speculum Exam - Cervix: Other cervical findings present ( heart tones are reassuring with rare contraction) Discharge Plan Discharge Attending physician on discharge: Arturo Briceño Discharging Clinician: Arturo Briceño Patient Disposition: Other Activity: pelvic rest Diet: NPO Patient Instructions: Antibiotic Form Stand Alone Forms: General Discharge Information Discharge Medications: No Action clonazepam 1 mg tablet 1 mg PO BID acetaminophen-codeine 300-30 mg tablet 1 tablet PO Q8H PRN (Reason: pain) Date of admission: 07/14/23 10:18 Primary Care Provider: ChelleTanner Admitting Provider: Arturo Briceño Attending physician on admission: Arturo Briceño Condition: Stable
--- NOTE | 2023-07-14 13:05 | PC.NURSE ---
Dr. Tonya Bruce spoke with MFM at [facility] and they are willing to accept pt as a transfer, but they don't have a maternal transport team available to come pick her up. Order received to stop Magnesium sulfate and transfer pt by ambulance to [facility].
[2023-07-14 15:13] LABS: Appearance Urine Clear (Clear); Bacteria Urine None Seen /hpf; Bilirubin Urine Negative (Negative); Blood Urine Trace (Negative); Color Urine Yellow (Yellow); Glucose Urine UA Negative (Negative); Ketones Urine Negative (Negative); Leukocyte Esterase Ur 1+ LEU/UL (Negative); Nitrate Urine Negative (Negative); Non Pathogenic Casts 0-2; Protein Urine 2+ mg/dL (Negative); Squamous Epithelial Cell Urine Few /hpf (Few); Urobilinogen Urine 0.2 mg/dL (<2.0); WBC Urine 21-50 /hpf (0-3); pH Urine 7.5 (5.0-9.0)
[2023-07-14 15:26] LABS: Add Urine Microscopic? YES; Specific Grav Ur 1.004 (1.001-1.035)
== END 2023-07-14 13:52 | disposition other institution (70) ==
LOC: ANHOBOP 10:22 → ANHOBPP 10:23 → ANHOBOP 11:30 → ANHOBPP 11:30 → ANHLDR 14:05
PROVIDERS: Admitting Provider Obstetrics & Gynecology; PCP Family Medicine; Visit Provider Obstetrics & Gynecology
DX: O42.913 Preterm premature rupture of membranes, unspecified as to length of time between rupture and onset of labor, third trimester (principal); O99.333 Smoking (tobacco) complicating pregnancy, third trimester; F17.210 Nicotine dependence, cigarettes, uncomplicated; O99.323 Drug use complicating pregnancy, third trimester; F12.90 Cannabis use, unspecified, uncomplicated; Z3A.31 31 weeks gestation of pregnancy; Z79.1 Long term (current) use of non-steroidal anti-inflammatories (NSAID); Z79.899 Other long term (current) drug therapy
CPT/HCPCS: 76815; 84112; 87086; 96361; 96365; 96368; 96372; G0378; G0379; J0290; J0702; J3475; J7120

== ENCOUNTER 2023-10-14 08:21 | Outpatient (CLI) | payer OTHER, SELFPAY ==
[2023-10-14 08:53] LABS: Hematocrit 38.7 % (37.0-47.0); Hemoglobin 12.7 g/dL (12.0-15.0); Mean Corpuscular HGB Conc 32.8 g/dl (32-36); Mean Corpuscular Hemoglobin 29.3 pg (26-34); Mean Corpuscular Volume 89.2 fl (80-100); Mean Platelet Volume 10.2 fl (7.4-10.4); Platelet Count Result 319 k/mm3 (150-375); Red Blood Count 4.34 M/mm3 (4.2-5.4); Red Cell Distribution Width 13.5 % (11.5-14.5); White Blood Count 7.1 K/mm3 (4.5-10.0)
[2023-10-14 08:55] LABS: Appearance Urine Clear (Clear); Bilirubin Urine Negative (Negative); Blood Urine Negative (Negative); Color Urine Yellow (Yellow); Glucose Urine UA Negative (Negative); Ketones Urine Negative (Negative); Leukocyte Esterase Ur Negative LEU/UL (Negative); Nitrate Urine Negative (Negative); Protein Urine Negative (Negative); Specific Grav Ur 1.017 (1.001-1.035); Urobilinogen Urine 0.2 mg/dL (<2.0); pH Urine 5.5 (5.0-9.0)
[2023-10-14 09:04] LABS: Anion Gap 7 mmol/L (4-12); Blood Urea Nitrogen 11 mg/dL (7-17); Calcium 9.5 mg/dL (8.4-10.2); Carbon Dioxide 29 mmol/L (22-30); Chloride 107 mmol/L (98-107); Estimated Glomerular Filt Rate > 60; Glucose 93 mg/dL (65-110); Potassium 4.2 mmol/L (3.4-5.0); Sodium 143 mmol/L (137-145)
[2023-10-14 09:05] LABS: INR 0.9; Prothrombin Time 12.7 Seconds (11.1-14.7)
[2023-10-14 09:06] LABS: Partial Thromboplastin Time 31.8 Seconds (22.3-36.8)
[2023-10-14 09:15] LABS: Add Urine Microscopic? NO
== END 2023-10-14 08:22 | disposition home or self-care (01) ==
LOC: ANHSURGERY 08:25
PROVIDERS: PCP Family Medicine; Visit Provider Neurological Surgery
DX: M54.9 Dorsalgia, unspecified (principal); Z01.818 Encounter for other preprocedural examination
CPT/HCPCS: 36415; 80048; 81003; 85027; 85610; 85730

== ENCOUNTER 2023-10-19 01:56 | Day surgery (SDC) | payer OTHER, SELFPAY ==
[2023-10-13 09:14] VITALS: BMI 20.1
--- NOTE | 2023-10-13 09:19 | PC.NURSE ---
Report to the Outpatient Waiting Room, entrance under the green pavilion located off [facility], at time _0900_ on date _[id number]_. Planned Procedure Time: _1100_. Time changes happen often and if your time is changed the preop area will call you the afternoon before. - You and your visitor will be asked to self-screen and do not enter if you have any COVID symptoms. - A mask is optional within the hospital at this time. Patients may have clear liquids (water, carbonated beverages, clear teas, apple juice) until 3 hours prior to surgery with a maximum of 20 ounces. - No food from midnight until time of surgery Take the following medications with a SIP of water the morning of surgery: __Clonazepam and if needed acetaminophen with codiene DO NOT STOP ANY OF YOUR OTHER PRESCRIPTION MEDICATIONS PRIOR TO SURGERY ?EXCEPT THE FOLLOWING Medications to discontinue per physician ___None Date to take last dose Please no make-up, nail kiswahili, hairspray, perfume, deodorant, or body powder the day of surgery. No jewelry (including any body piercings) or valuables the day of surgery, leave them at home. Please take a shower or bath the night before, or the morning of, surgery with an antibacterial soap. Wear comfortable, loose fitting clothing. - Jewelry must be removed prior to entering the operating room. Rings and piercings that are not removed may be cut off. - The hospital will not accept responsibility for valuables. - Please leave all valuables, including medications, at home the day of surgery. If you are going home after surgery, a licensed ready mix truck driver must drive you home. - NO public transportation without another adult if you receive anesthesia. - We recommend that an adult stay with you for 24 hours following discharge. - We also recommend that you do not drive, make important decision, drink alcoholic beverages, or take any drugs that were not prescribed by your health care provider for at least 24 hours after your discharge time. Follow any additional instructions given to you from your surgeon. If you or anyone in your household have experienced Covid symptoms in the past week, please notify your surgeon or the nurse liaison at the phone number below for possible testing. Telephone instructions given to __Jillian__and asked if any additional questions and then verbalized understanding. Patient advised to call surgeon office or pre surgery nurse liaison [phone] if any additional questions.
[2023-10-19] VITALS (14 sets, daily range): BP systolic 104–144; BP diastolic 74–97; PULSE 52–99; RESP 12–20; TEMP 35.7–36.9; O2SAT 93–100; BMI 19.7
[2023-10-19] MEDS: LACTATED RINGERS 1,000 ML 30 ML IV CONT ×2 (09:30→14:00)
--- NOTE | 2023-10-19 11:03 | SUR.PREOP ---
1103- Notified patient and spouse procedure start time delayed. Patient denying needs at this time.
--- NOTE | 2023-10-19 11:51 | WPDANESEPPF ---
Anes - Initial Pre Proc Eval Procedure: Operation Date: 10/19/23 11:00 Proposed Procedures p Removal of T12-L1 Posterior Instrumentation - Alex Zavala MD Date/Time: 10/19/23 11:51 Surgeon: Alex Zavala MD Pre Op Diagnosis: status post thoraco lumbar fusion Patient Data Age: 32 Gender: F Height: 1.63 m Weight: 52.2 kg Last Vital Signs Temp 36.9 C 10/19/23 09:05 Pulse 99 10/19/23 09:05 Resp 14 10/19/23 09:05 BP 132/87 10/19/23 09:05 Pulse Ox 98 10/19/23 09:05 O2 Del Method Room Air 10/19/23 09:05 Allergies Allergy/AdvReac Type Severity Reaction Status Date / Time sulfamethoxazole Allergy Unknown Rash Verified 10/19/23 09:41 trimethoprim Allergy Unknown Rash Verified 10/19/23 09:41 Home Medications Medication Instructions Recorded Confirmed Type clonazepam 1 mg tablet 1 mg PO BID 04/01/22 10/19/23 History acetaminophen 300 mg-codeine 30 mg 1 tablet PO Q8H PRN pain #30 tabs 10/12/23 10/19/23 Rx tablet Patient hx anesthesia problems: none Family hx anesthesia problems: none Results Review: All pre-operative results and documents have been reviewed as part of the pre-operative evaluation. [facility] Past Medical History Medical History Anxiety Depression Sphincter of Oddi dysfunction Surgical History Surgical History History of biliary duct stent placement History of cholecystectomy History of thoracic spinal fusion Status post hardware removal on the left and redo posterolateral fusion at T12-L1 on 01/05/2023. Family History Family History Other No pertinent family history Social History Social History Social History: Surrogate medical decision maker: Rafael Gonsalez (spouse) or Vita Nikhil (mother). Code status: Full code. Smoking packs per day: 0.5 Smoking cigarettes per day: 10.0 Years smoked: 13 Smoking pack-years: 6.50 Smoking status: Current every day smoker Tobacco type: cigarettes Second hand tobacco smoke exposure: Yes Additional smoking assessment comments: Social smoker, 2 to 3 a day. Alcohol intake: never Substance use: current Substance use type: marijuana Do You Feel Safe in your Home?: Yes Lack of Transportation: No Lack of Food: Never True Current Housing: I Have Housing Concerned About Future Housing: No Difficulty Paying Gas/Electric Bills: No Difficulty Paying for Meds: No Currently Unemployed: No Education: High School Diploma/GED Difficulty w/ Childcare or Family Care: No Living arrangements: with family Spiritual care concerns: No Anes - Eval Final PreProcedure Day of Procedure 10/19/23 11:51 Patient weight: normal Heart: regular rate and rhythm Lungs: clear to auscultation Airway: Mallampati scale class II Neurological: alert and oriented Last oral intake: >/= 8 hours ASA classification: II Emergent: no Anesthetic plan: proceed Anesthesia type and monitoring: general ETT and standard monitoring Results Review: All pre-operative results and documents have been reviewed as part of the pre-operative evaluation. Informed Consent: The patient's anesthetic plan and its attendant risks and benefits were discussed with the patient/family/POA. Questions were solicited and answers provided to the satisfaction of the patient/family/POA.
--- NOTE | 2023-10-19 12:14 | PM.IMHP ---
H&P: HPI History of Present Illness Date/Time: 10/19/23 12:14 Chief Complaint: Thoracic back pain Narrative: Jillian is a 32-year-old female with back pain related to instrumentation at T12-L1 who presents for removal. It has previously been removed on the left he will now be removed on the right. She does not report any new bowel or bladder issues or neurologic issues that are new in her lower extremities. She is not changed appreciably since we last saw her. Review of Systems Review of Systems: Patient denies shortness of breath, cough, fever, chills, nausea, vomiting, weight loss, weight gain, chest pain, dysuria. She has thoracic back pain and occasional left leg discomfort. Her review of systems otherwise negative on 12 systems except as noted elsewhere. [facility] Past Medical History Medical History Anxiety Depression Sphincter of Oddi dysfunction Surgical History Surgical History History of biliary duct stent placement History of cholecystectomy History of thoracic spinal fusion Status post hardware removal on the left and redo posterolateral fusion at T12-L1 on 01/05/2023. Family History Family History Other No pertinent family history Social History Social History Social History: Surrogate medical decision maker: Rafael Meltonvonda (spouse) or Vita Deleontrista (mother). Code status: Full code. Smoking packs per day: 0.5 Smoking cigarettes per day: 10.0 Years smoked: 13 Smoking pack-years: 6.50 Smoking status: Current every day smoker Tobacco type: cigarettes Second hand tobacco smoke exposure: Yes Additional smoking assessment comments: Social smoker, 2 to 3 a day. Alcohol intake: never Substance use: current Substance use type: marijuana Do You Feel Safe in your Home?: Yes Lack of Transportation: No Lack of Food: Never True Current Housing: I Have Housing Concerned About Future Housing: No Difficulty Paying Gas/Electric Bills: No Difficulty Paying for Meds: No Currently Unemployed: No Education: High School Diploma/GED Difficulty w/ Childcare or Family Care: No Living arrangements: with family Spiritual care concerns: No Meds Home Medications and Allergies Home Medications Medication Instructions Recorded Confirmed Type clonazepam 1 mg tablet 1 mg PO BID 04/01/22 10/19/23 History acetaminophen 300 mg-codeine 30 mg 1 tablet PO Q8H PRN pain #30 tabs 10/12/23 10/19/23 Rx tablet Allergies Allergy/AdvReac Type Severity Reaction Status Date / Time sulfamethoxazole Allergy Unknown Rash Verified 10/19/23 09:41 trimethoprim Allergy Unknown Rash Verified 10/19/23 09:41 Vital Signs Vital Signs - 24 hr 10/19/23 09:05 Temperature 98.4 F Pulse Rate 99 Respiratory Rate 14 Blood Pressure 132/87 Pulse Oximetry 98 Oxygen Delivery Room Air Exam Narrative: Strength is normal the bilateral lower extremities to direct confrontation. Sensation is intact to light touch in the lower extremities. Breathing is nonlabored Regular rate and rhythm Assessment and Plan Assessment and plan (1) Thoracic back pain: Code(s): M54.6 - Pain in thoracic spine Status: Acute Assessment and Plan: Sathya is a 32-year-old female who presents for removal of instrumentation on the right at T12-L1. I described to her again that operation, its risks, potential benefits, the operative and postoperative course in detail and answered all her questions personally. She indicates understanding and elects to proceed with that operation.
--- NOTE | 2023-10-19 12:17 | WPDHPUPDATE1 ---
History and Physical Update Update Date/Time: 10/19/23 12:17 History and Physical has been reviewed, including an updated exam of the patient. There are NO changes in the patient's condition. Risks, benefits, and alternatives have been discussed and questions answered. Patient agrees to proceed with procedure.
[2023-10-19] MEDS: ceFAZolin 2 GM/D5W 50 ML 2 GM/50 ML BAG IVPB (13:05)
[2023-10-19] MEDS: LIDO 1%/EPINEPHRINE 1:100,000 50 ML VIAL 10 ML INFILTRATE (13:24)
--- NOTE | 2023-10-19 14:09 | P.OP_ITS ---
Procedure Note - Detailed Date of Procedure 10/19/23 Pre-op Diagnosis status post thoraco lumbar fusion Post-op Diagnosis Same Procedure Performed Removal of right-sided T12-L1 instrumentation Surgeon Alex Zavala MD Anesthesia General Description of Procedure The patient was brought to the operating room in the supine position, was sedated, intubated placed under general anesthesia in routine fashion. She was then turned into the prone position on a Andrew frame. The of operation her back was examined, marked for incision, prepped and draped in routine sterile fashion. Incision was marked over the T12 and L1 spinous processes over the previous incision in the midline. This area was injected 0.5% lidocaine [id number] epinephrine. Intravenous antibiotics given prior to incision. Incision was made with a 10 blade scalpel down to the lumbodorsal fascia. Bovie cautery was used to discovered on cover the screws on the right side. The screw heads and the alma were uncovered. Little if any muscle was found overlying the screws and rods. A torque and anti torque device was used to remove the. The alma was then removed using a curved curette and a needle restaurant delivery driver. The appropriate screwdriver was used to remove the screws. The L1 screw was found to be broken over a [address] down the shaft, within the bone. This could not be retrieved safely or easily without destroying the bone and therefore was left in position and as it has no clinical consequence. The bone surfaces were discovered using Bovie cautery and decorticate using a Midas Eladio drill. 5 cc of magnetos were warmed, shape and placed against the lateral mass decorticated surfaces at T12 and L1 and pressed into it. The wound was copiously irrigated with bacitracin irrigation all bleeding stopped with bipolar cautery. The wound was then closed in layered fashion with 2-0 Vicryl interrupted sutures in the thoracolumbar fascia and Alfredo's layer. 3-0 Vicryl buried interrupted sutures were placed in the dermis and the skin was closed with a running 4-0 Monocryl subcuticular stitch and dressed with Dermabond. Patient was lead wake up in the operating room and was taken to the recovery room in stable condition. There were no immediate complications of this operation. All counts were reported correct at the end of the case. Blood loss was 10 cc. The patient was neurologically at her baseline postoperatively. Estimated Blood Loss 10 IV Fluids 1,000 Complications None Condition Stable Disposition PACU [facility] Billing Surgery - Charge Forward: Surgery Billing
[2023-10-19] MEDS: fentaNYL CITRATE INJ (*CRX) 100 MCG/2 ML VIAL 25 MCG IV PUSH ×8 (14:14→14:46)
[2023-10-19] MEDS: CYCLOBENZAPRINE HCL 10 MG TABLET PO ×2 (14:40→23:00)
[2023-10-19] MEDS: HYDROmorphone HCL INJ (*CRX) 1 MG/ML SYR 0.5 MG IV PUSH ×2 (14:57→15:06)
[2023-10-19] MEDS: ONDANSETRON INJ 4 MG/2 ML VIAL IV PUSH (15:43)
--- NOTE | 2023-10-19 16:02 | ADMGEN ---
This patient, Jillian Valle, was admitted to [facility] Surg Room 328-01. Patient/family oriented to hospital policies and general routines including ID bracelet, bed and alarms, visiting hours, pain management, procedures, bathroom and other care routines, personal items, smoking policy, room service/diet, and visiting hours. Information on how to activate the Rapid Response Team has been discussed. Patient/Family are encouraged to report perceived risks to care and to ask questions if they do not understand what they are told or what they should do.
[2023-10-19] MEDS: KCL 20 MEQ/D5/0.45% SOD CHL 1,000 ML 100 ML IV CONT (17:10)
[2023-10-19] MEDS: PROMETHAZINE HCL 25 MG/ML AMPUL 12.5 MG IV PUSH (17:12)
[2023-10-19] MEDS: MORPHINE SULFATE (*CRX) 2 MG/ML INJ IV PUSH ×3 (17:14→22:21)
[2023-10-19] MEDS: ceFAZolin 1 GM/NS 50 ML 1 GM/50 ML BAG IVPB (20:16)
[2023-10-19] MEDS: clonazePAM (*CRX) 0.5 MG TABLET 1 MG PO (20:17)
[2023-10-19] MEDS: DOCUSATE SODIUM 100 MG CAPSULE PO (20:17)
[2023-10-20] MEDS: HYDROmorphone HCL INJ (*CRX) 1 MG/ML SYR 0.5 MG IV PUSH ×3 (00:18→06:31)
[2023-10-20] MEDS: HYDROcodone/acetaminophen (*CRX) 10-325 MG TABLET 1 TAB PO (03:29)
[2023-10-20] MEDS: ceFAZolin 1 GM/NS 50 ML 1 GM/50 ML BAG IVPB ×3 (04:22→13:49)
[2023-10-20 04:30] VITALS: BP 131/92; PULSE 74; RESP 18; TEMP 35.8; O2SAT 99
[2023-10-20] MEDS: oxyCODONE/ACETAMINOPHEN (*CRX) 10-325 MG TABLET 1 TAB PO ×2 (09:09→13:48)
[2023-10-20] MEDS: clonazePAM (*CRX) 0.5 MG TABLET 1 MG PO (09:10)
[2023-10-20] MEDS: DOCUSATE SODIUM 100 MG CAPSULE PO (09:10)
[2023-10-20] MEDS: HYDROmorphone HCL INJ (*CRX) 1 MG/ML SYR IV PUSH (11:14)
[2023-10-20 12:00] VITALS: BP 105/77; PULSE 51; RESP 18; TEMP 35.9; O2SAT 100
--- NOTE | 2023-10-20 14:12 | WPDNEUROSGPN ---
Subjective Date/time seen: 10/20/23 14:12 Interval history: I spoke with Jillian by phone. She is postop day 1 status post T12-L1 removal of posterior instrumentation on the right. She has postoperative discomfort. She has some swelling at the area of the incision. These are similar problems to her last operation. While she may develop some swelling, it would take a significant finding for me to recommend reoperation given that that was done last time and no significant abnormality was noted. She is eager to go home and believes that she will do well with the oxycodone 10/325 and Valium. We will therefore prescribe both of those things for her and allow her to be discharged to home. She has no new neurologic issues, and none of her neural structures were exposed during the operation so the risk of that is very low. She always has a somewhat bright postoperative course but I think will do better outside of the hospital then in the hospital and therefore we will allow her to be discharged. Objective Data Vital Signs Vital Signs: Vital Signs - 24 hr 10/19/23 15:00 10/19/23 15:15 10/19/23 15:30 Temperature Pulse Rate 68 59 L 63 Respiratory Rate 14 12 12 Blood Pressure 119/83 117/74 104/81 Pulse Oximetry 94 93 94 Oxygen Delivery Room Air Room Air Room Air Oxygen Flow Rate 10/19/23 14:15 10/19/23 14:30 10/19/23 14:45 Temperature Pulse Rate 82 87 71 Respiratory Rate 16 14 14 Blood Pressure 124/85 144/82 H 117/81 Pulse Oximetry 100 100 95 Oxygen Delivery Simple Face Mask Room Air Room Air Oxygen Flow Rate 6 10/19/23 16:00 10/19/23 16:15 10/19/23 16:45 Temperature 96.9 F L 96.8 F L 96.8 F L Pulse Rate 59 L 64 70 Respiratory Rate 18 16 18 Blood Pressure 122/74 117/88 133/97 H Pulse Oximetry 99 97 98 Oxygen Delivery Oxygen Flow Rate 10/19/23 17:45 10/19/23 20:40 10/19/23 23:50 Temperature 96.2 F L 96.6 F L 96.9 F L Pulse Rate 52 L 67 69 Respiratory Rate 16 16 16 Blood Pressure 111/74 110/79 125/90 Pulse Oximetry 97 95 99 Oxygen Delivery Oxygen Flow Rate 10/20/23 04:30 10/20/23 10:49 10/20/23 12:00 Temperature 96.5 F L 96.6 F L Pulse Rate 74 51 L Respiratory Rate 18 18 Blood Pressure 131/92 H 105/77 Pulse Oximetry 99 100 Oxygen Delivery Room Air Oxygen Flow Rate Intake/Output Intake/Output: Intake & Output 10/17/23 10/18/23 10/19/23 10/20/23 23:59 23:59 23:59 23:59 Intake Total 1590 731.7 Balance 1590 731.7 Meds/Results Medications: Active Medications Generic Name Dose Route Start Last Admin Trade Name Freq PRN Reason Stop Dose Admin Al Hydrox/Mg Hydrox/Simethicone 20 ml 10/19/23 14:25 Mag Hydrox/Al Hydrox/Simeth 30 Ml Udc PO Q4H PRN Indigestion/Heartburn Bisacodyl 10 mg 10/19/23 14:25 Bisacodyl 10 Mg Suppository RECTAL DAILY PRN Constipation Clonazepam 1 mg 10/19/23 21:00 10/20/23 09:10 Clonazepam (*Crx) 0.5 Mg Tablet PO 1 mg Q12HR ZINA Administration Cyclobenzaprine HCl 10 mg 10/19/23 14:25 10/19/23 23:00 Cyclobenzaprine Hcl 10 Mg Tablet PO 10 mg TID PRN Administration Muscle Spasms Docusate Sodium 100 mg 10/19/23 21:00 10/20/23 09:10 Docusate Sodium 100 Mg Capsule PO 100 mg Q12HR ZINA Administration Hydromorphone HCl 0.5 mg 10/19/23 23:07 10/20/23 06:31 Hydromorphone Hcl Inj (*Crx) 1 Mg/Ml Syr IV PUSH 0.5 mg Q2HR PRN Administration Pain Rated 4-6 Hydromorphone HCl 1 mg 10/20/23 08:52 10/20/23 11:14 Hydromorphone Hcl Inj (*Crx) 1 Mg/Ml Syr IV PUSH 1 mg Q2H PRN Administration Pain Rated 7-10 Cefazolin Sodium 1 gm in 50 mls @ 100 mls/hr 10/19/23 21:00 10/20/23 13:49 Ancef 1 Gm/Ns 50 Ml IVPB 100 mls/hr Q8H ZINA Administration Potassium Chloride/Dextrose/Sod Cl 1,000 mls @ 100 mls/hr 10/19/23 14:25 10/19/23 17:10 Kcl 20 Meq/D5/0.45% Sod Chl IV CONT 100 mls/hr .Q10H ZINA Administration Ondansetron HCl 4 mg 10/19/23 14
--- NOTE | 2023-10-20 14:49 | WPDANESPN ---
Anes - Prog Note Post-Op Date/Time: 10/20/23 14:49 Cardiovascular status: normal Respiratory status: normal Airway patency: baseline Mental status: baseline Post-Op hydration status: normal Vital Signs: Last Vital Signs Temp 35.9 C L 10/20/23 12:00 Pulse 51 L 10/20/23 12:00 Resp 18 10/20/23 12:00 BP 105/77 10/20/23 12:00 Pulse Ox 100 10/20/23 12:00 O2 Del Method Room Air 10/20/23 10:49 O2 Flow Rate 6 10/19/23 14:15 Pain Score (VAS): 2/10 I/O: Intake & Output 10/19/23 10/20/23 10/20/23 23:59 07:59 15:59 Intake Total 290 250 481.7 Balance 290 250 481.7 Post-procedural complaints: none Patient Feedback: Patient satisfied with anesthetic care.
== END 2023-10-20 15:22 | disposition home or self-care (01) ==
LOC: ANHSURGERY 08:56 → ANH3MEDSUR 15:07
PROVIDERS: PCP Family Medicine; Visit Provider Neurological Surgery
PROC: (CPT 22852; principal; 2023-10-19 11:00)
DX: T84.84XA Pain due to internal orthopedic prosthetic devices, implants and grafts, initial encounter (principal); M54.6 Pain in thoracic spine; F41.9 Anxiety disorder, unspecified; F32.A Depression, unspecified; F17.290 Nicotine dependence, other tobacco product, uncomplicated; K83.4 Spasm of sphincter of Oddi; Z98.890 Other specified postprocedural states; Z90.49 Acquired absence of other specified parts of digestive tract; Z98.1 Arthrodesis status; Y83.8 Other surgical procedures as the cause of abnormal reaction of the patient, or of later complication, without mention of misadventure at the time of the procedure
CPT/HCPCS: 22852; 97161; 97165; A9270; J0690; J1100; J1170; J2250; J2270; J2371; J2405; J2550; J2704; J3010; J3480; J7120

== ENCOUNTER 2023-11-02 10:15 | Emergency (ER) | payer OTHER, SELFPAY ==
--- NOTE | ~2023-11-02 | XR_ITS ---
Thoracic spine: Clinical Indication: Back pain AP and lateral views were performed. No fracture is seen. There is normal alignment of the vertebrae. The intervertebral disc spaces appe ar normal. Partially imaged hardware noted the lumbar spine. Paravertebral soft tissues appear normal . Impression: No significant abnormalities noted in the thoracic spine. There is partially imaged remnant hardware at the L2 level.. Reviewed, dictated and finalized at location M. Impression: No significant abnormalities noted in the thoracic spine. There is partially im aged remnant hardware at the L2 level..
--- NOTE | ~2023-11-02 | US_ITS ---
Duplex Sonography of the left extremity: Indication: Swelling Findings: Sagittal and transverse B-mode images as well as color-flow imaging were performed on the l eft femoral and popliteal veins. B-mode examination was done without and with compression in the tra nsverse plane. There is good visualization of the common femoral, proximal profunda femoral, superfi cial femoral, greater saphenous, and popliteal veins. Normal flow was seen on color-flow imaging. No rmal compressibility was demonstrated. Visualized calf veins are also patent. Impression: No evidence of deep vein thrombosis involving the left lower extremity. Reviewed, dictated and finalized at location M. Impression: No evidence of deep vein thrombosis involving the left lower extremity.
[2023-11-02 10:20] VITALS: BP 170/106; PULSE 126; RESP 20; TEMP 36.4; O2SAT 98
--- NOTE | 2023-11-02 12:00 | ED.GENADULT ---
HPI - General Adult General Chief complaint: Extremity Problem,Nontraumatic Stated complaint: left leg pain Time Seen by Provider: 11/02/23 10:32 History of Present Illness HPI narrative: 32-year-old female history of multiple back surgeries, most recently instrumentation removal from T12-L1 per Dr. Mora presents to the emergency room for evaluation of mid thoracic back pain that radiates into her left calf. Pain is worse with ambulation and movement. Patient was sent here by Dr. Mora for rule out DVT of her left calf and of imaging of her mid thoracic back. Patient has been taking oxycodone, Valium for pain relief. Related Data Allergies Allergy/AdvReac Type Severity Reaction Status Date / Time sulfamethoxazole Allergy Unknown Rash Verified 10/19/23 09:41 trimethoprim Allergy Unknown Rash Verified 10/19/23 09:41 Review of Systems Review of Systems: ROS unremarkable except for noted in HPI [facility] Past Medical History Medical History Anxiety Depression Sphincter of Oddi dysfunction Surgical History Surgical History History of biliary duct stent placement History of cholecystectomy History of thoracic spinal fusion Status post hardware removal on the left and redo posterolateral fusion at T12-L1 on 01/05/2023. Family History Family History Other No pertinent family history Social History Social History Social History: Surrogate medical decision maker: Rafael Gonsalez (spouse) or Vita Tejeda (mother). Code status: Full code. Smoking packs per day: 0.5 Smoking cigarettes per day: 10.0 Years smoked: 13 Smoking pack-years: 6.50 Smoking status: Current every day smoker Second hand tobacco smoke exposure: Yes Additional smoking assessment comments: Social smoker, 2 to 3 a day. Alcohol intake: never Substance use: never Substance use type: does not use Do You Feel Safe in your Home?: Yes Lack of Transportation: No Lack of Food: Never True Current Housing: I Have Housing Concerned About Future Housing: No Difficulty Paying Gas/Electric Bills: No Difficulty Paying for Meds: No Currently Unemployed: No Education: Associate Degree Difficulty w/ Childcare or Family Care: No Living arrangements: with family Spiritual care concerns: No Exam Narrative: GENERAL: Well-appearing, well-nourished, no physical limitations, and in no acute distress. HEAD: Normocephalic, atraumatic. EYES: Conjunctivae normal, PERRLA and EOMI. CHEST: Clear to auscultation. No respiratory distress. No wheezes rales or rhonchi. HEART: Regular rate and rhythm. No murmur heard. Normal peripheral pulses. BACK: cervical/thoracic/lumbar Paraspinal tenderness, no step-offs, no bony abnormality; FROM EXTREMITIES: Normal range of motion. No edema. No clubbing or cyanosis. Left calf: +TTP, no swelling, - calf measurements, - Sherlyn's sign SKIN: Warm, dry, no rash. No noted wounds NEURO: No focal deficits. Alert and oriented x3. MAEW. CN's II-XI intact bilaterally, normal gait PSYCH: Cooperative. Normal mood and affect. Course Course Emergency Course: discussed case with Dr. Micha headley. He recommends discharge patient home with short course of Medrol Dosepak and Valium. Patient is encouraged to follow up with him for any other concerns. Vital Signs Vital signs: Vital Signs Temperature 36.4 C 11/02/23 10:20 Pulse Rate 126 H 11/02/23 10:20 Respiratory Rate 11/02/23 10:20 Blood Pressure 170/106 H 11/02/23 10:20 Pulse Oximetry 98 11/02/23 10:20 Oxygen Delivery Room Air 11/02/23 10:20 Temperature 36.4 C 11/02/23 10:20 Pulse Rate 126 H 11/02/23 10:20 Respiratory Rate 11/02/23 10:20 Blood Pressure 170/106 H 11/02/23 10:
== END 2023-11-02 12:19 | disposition home or self-care (01) ==
PROVIDERS: Emergency Provider Nurse Practitioner Family; PCP Family Medicine
DX: M54.6 Pain in thoracic spine (principal); F17.210 Nicotine dependence, cigarettes, uncomplicated; Z90.49 Acquired absence of other specified parts of digestive tract; Z98.1 Arthrodesis status; Z79.899 Other long term (current) drug therapy
CPT/HCPCS: 72072; 93971; 99284

== ENCOUNTER 2024-01-25 06:34 | Outpatient (CLI) | payer OTHER, SELFPAY ==
--- NOTE | ~2024-01-25 | MR_ITS ---
EXAMINATION: MR lumbar spine wo con DATE: 01/25/2024 07:07 INDICATION: Lumbar intervertebral disc degeneration. TECHNIQUE: Magnetic resonance imaging (MRI) of the lumbar spine was performed without intravenous con trast. Sequences included sagittal T2-weighted FSE, sagittal T2-weighted FS FSE, sagittal T1-weighted FSE, and axial T2-weighted FSE. COMPARISON: MRI dated 11/11/[address] dated 09/30/2022 FINDINGS: Unchanged chronic chronic L1 compression fracture with 20% right anterior vertebral body height loss. Again seen are postoperative change of T12 laminectomy and with a prior since removed T12-L1 posteri or spinal fusion with residual bilateral pedicle screw tracks at T12 and L1. There is metallic magnet ic field artifact associated with a residual screw fragment at the right side of the L1 vertebral bod y. Interval increase in a mild focal kyphosis and without 10 degrees lumbar levoscoliosis centered at T12-L1 with progression of now moderate anterior vertebral body height loss but with widening of the posterior disc space particularly on the left. Remaining vertebral body and disc heights are normal. Normal marrow signal. The conus medullaris terminates at T12-L1. There is normal signal in the caud al spinal cord. Paravertebral soft tissues are unremarkable. The following disc levels are specifical ly discussed: T12-L1: Annular fissure with disc bulge. The degree of bulging posteriorly is decreased conjunction w ith the widening of the disc space. There appears to be separation of the articular processes of T12 and L1 and with some bone graft material on the right, unclear whether with solid osseous fusion. The re does not appear to be solid osseous fusion on the left. This would be better evaluated with CT. Th ere is no neural foraminal stenosis. There is mild central canal stenosis. L1-L2: The disc does not extend beyond the endplate margin. There is mild bilateral facet joint osteo arthritis. There is no neural foraminal stenosis. There is no central canal stenosis. L2-L3: The disc does not extend beyond the endplate margin. There is mild bilateral facet joint osteo arthritis. There is no neural foraminal stenosis. There is no central canal stenosis. L3-L4: Disc is mildly bulging. There is mild bilateral facet joint osteoarthritis. There is minimal b ilateral neural foraminal stenosis. There is no central canal stenosis. L4-L5: Disc is mildly bulging. There is mild to moderate bilateral facet joint osteoarthritis. There is mild bilateral neural foraminal stenosis. There is no central canal stenosis. L5-S1: Disc is bulging. There is mild bilateral facet joint osteoarthritis. There is mild bilateral n eural foraminal stenosis. There is mild central canal stenosis. IMPRESSION: 1. Interval removal of instrumentation for a prior T12-L1 posterior spinal fusion with retained pedic le screw fragment at the right-sided the L1 vertebral body. Associated increased focal kyphosis and l evoscoliosis centered at T12-L1 with increased moderate anterior disc height loss and widening of the left posterior disc space which suggests the absence of solid osseous bridging. Could consider CT fo r more definitive assessment for degree incorporation of the previously seen bone graft material. 2. Otherwise unchanged mild lumbar spondylosis. Reviewed, dictated and finalized at location A. IMPRESSION: 1. Interval removal of instrumentation for a prior T12-L1 posterior spinal fusi on with retained pedicle screw fragment at the right-sided the L1 vertebral bod y. Associated increased focal kyphosis and levoscoliosis centered at T12-L1 wit h increased moderate anterior disc height loss and widening of the left posteri or disc space which suggests the absence of solid osseous bridging. Could consi andreas CT for mo
== END 2024-01-25 06:35 | disposition home or self-care (01) ==
PROVIDERS: PCP Family Medicine; Visit Provider Neurological Surgery
DX: M51.369 Other intervertebral disc degeneration, lumbar region without mention of lumbar back pain or lower extremity pain (principal); M43.06 Spondylolysis, lumbar region; Z98.1 Arthrodesis status
CPT/HCPCS: 72148

== ENCOUNTER 2024-03-07 13:53 | Outpatient (CLI) | payer OTHER, SELFPAY ==
--- NOTE | ~2024-03-07 | CT_ITS ---
EXAMINATION: CT lumbar spine wo con DATE: 03/07/2024 14:33 INDICATION: Other intervertebral disc degeneration, lumbar region. TECHNIQUE: Computed tomography (CT) of the lumbar spine was performed without intravenous contrast. A utomated exposure control and iterative reconstruction technique were employed. The dose-length produ ct was 154.39 mGy-cm. COMPARISON: Lumbar spine CT 09/30/22 FINDINGS: There are changes of cholecystectomy. There is 13 degrees levoscoliosis of thoracolumbar sp ine. There is an old screw fragment in L1 on the right. There are old screw tracts in T12 and L1. The re are changes of T12 laminectomy. There is focal kyphosis at T12-L1. There is mild chronic anterior wedging of T12 and L1 vertebral bodies. There is severely decreased disc height at T12-L1. The follow ing disc levels are specifically discussed: T12-L1: The disc is bulging. There is no facet joint hypertrophy. There is no neural foraminal stenos is. There is mild central canal stenosis. There is posterior decompression. L1-L2: The disc does not extend beyond the endplate margin. There is no facet joint osteoarthritis. T here is no neural foraminal stenosis. There is no central canal stenosis. L2-L3: The disc does not extend beyond the endplate margin. There is mild bilateral facet joint osteo arthritis. There is no neural foraminal stenosis. There is no central canal stenosis. L3-L4: The disc is bulging. There is mild bilateral facet joint osteoarthritis. There is mild right n eural foraminal stenosis. There is no central canal stenosis. L4-L5: The disc is bulging. There is mild bilateral facet joint osteoarthritis. There is mild bilater al neural foraminal stenosis. There is mild central canal stenosis. L5-S1: The disc is bulging. There is mild bilateral facet joint osteoarthritis. There is mild bilater al neural foraminal stenosis. There is mild central canal stenosis. IMPRESSION: 1. Severe spondylosis at T12-L1 with interval worsening. Mild spondylosis at other levels. 2. Thoracolumbar levoscoliosis. Focal kyphosis at T12-L1. Reviewed, dictated and finalized at location [] OTECH[employer]IST IMPRESSION: 1. Severe spondylosis at T12-L1 with interval worsening. Mild spondylosis at ot her levels. 2. Thoracolumbar levoscoliosis. Focal kyphosis at T12-L1.
== END 2024-03-07 13:54 | disposition home or self-care (01) ==
LOC: ANHIMG 13:54
PROVIDERS: PCP Family Medicine; Visit Provider Neurological Surgery
DX: M51.369 Other intervertebral disc degeneration, lumbar region without mention of lumbar back pain or lower extremity pain (principal); M47.895 Other spondylosis, thoracolumbar region; M47.896 Other spondylosis, lumbar region
CPT/HCPCS: 72131

== ENCOUNTER 2024-04-05 10:26 | Outpatient (CLI) | payer OTHER, SELFPAY ==
[2024-04-05 11:08] LABS: Add Urine Microscopic? YES; Appearance Urine Clear (Clear); Bacteria Urine Rare /hpf; Bilirubin Urine Negative (Negative); Blood Urine Negative (Negative); Color Urine Yellow (Yellow); Glucose Urine UA Negative (Negative); Ketones Urine Negative (Negative); Leukocyte Esterase Ur 2+ LEU/UL (Negative); Nitrate Urine Negative (Negative); Protein Urine Trace mg/dL (Negative); RBC Urine 0-2 /hpf (0-2); Specific Grav Ur 1.029 (1.001-1.035); Squamous Epithelial Cell Urine Few /hpf (Few); Urobilinogen Urine 0.2 mg/dL (<2.0); WBC Urine 21-50 /hpf (0-3); pH Urine 5.5 (5.0-9.0)
[2024-04-05 11:25] LABS: Hematocrit 40.8 % (37.0-47.0); Hemoglobin 13.5 g/dL (12.0-15.0); Mean Corpuscular HGB Conc 33.1 g/dl (32-36); Mean Corpuscular Hemoglobin 30.2 pg (26-34); Mean Corpuscular Volume 91.3 fl (80-100); Mean Platelet Volume 10.7 fl (7.4-10.4); Platelet Count Result 304 k/mm3 (150-375); Red Blood Count 4.47 M/mm3 (4.2-5.4); Red Cell Distribution Width 12.5 % (11.5-14.5); White Blood Count 8.8 K/mm3 (4.5-10.0)
[2024-04-05 11:35] LABS: INR 0.9; Partial Thromboplastin Time 26.6 Seconds (22.3-36.8); Prothrombin Time 12.8 Seconds (11.1-14.7)
[2024-04-05 12:00] LABS: Anion Gap 7 mmol/L (4-12); Blood Urea Nitrogen 14 mg/dL (7-17); Calcium 9.5 mg/dL (8.4-10.2); Carbon Dioxide 25 mmol/L (22-30); Chloride 105 mmol/L (98-107); Estimated Glomerular Filt Rate > 60; Glucose 101 mg/dL (65-110); Sodium 137 mmol/L (137-145)
== END 2024-04-05 10:27 | disposition home or self-care (01) ==
LOC: ANHLAB 10:30
PROVIDERS: PCP Family Medicine; Visit Provider Neurological Surgery
DX: D68.9 Coagulation defect, unspecified (principal); Z01.818 Encounter for other preprocedural examination
CPT/HCPCS: 36415; 80048; 81001; 85027; 85610; 85730; 87086

== ENCOUNTER 2024-05-26 14:47 | Outpatient (CLI) | payer OTHER, SELFPAY ==
--- NOTE | ~2024-05-26 | CT_ITS ---
EXAMINATION: CT lumbar spine wo con DATE: 05/26/2024 15:46 INDICATION: Arthrodesis status. TECHNIQUE: Computed tomography (CT) of the lumbar spine was performed without intravenous contrast. A utomated exposure control and iterative reconstruction technique were employed. The dose-length produ ct was 189.23 mGy-cm. COMPARISON: CT lumbar spine 03/07/2024 FINDINGS: There is 16 degrees levoscoliosis of thoracolumbar spine. There is a chronic compression fr acture of L1. There is focal kyphosis at L1. There are changes of anterior fusion procedure at T12-L1 with interbody device. There are changes of posterior fusion procedure from T11 to L3 with pedicle s crews. There is a retained screw fragment in the right L1 vertebral body and pedicle. There is a old screw tract in L1 on the left. There are old fracture deformities of the L1 transverse processes. Int ervertebral disc heights are normal. The following disc levels are specifically discussed: T12-L1: There is no facet joint hypertrophy. There is no neural foraminal stenosis. There is no centr al canal stenosis. There is posterior decompression. L1-L2: The disc does not extend beyond the endplate margin. There is no facet joint hypertrophy. Ther e is no neural foraminal stenosis. There is no central canal stenosis. L2-L3: The disc does not extend beyond the endplate margin. There is mild bilateral facet joint hyper trophy. There is no neural foraminal stenosis. There is no central canal stenosis. L3-L4: The disc is bulging. There is mild bilateral facet joint osteoarthritis. There is mild bilater al neural foraminal stenosis. There is mild central canal stenosis. L4-L5: The disc is bulging. There is mild right facet joint osteoarthritis. There is mild bilateral n eural foraminal stenosis. There is mild central canal stenosis. L5-S1: The disc is bulging. There is mild bilateral facet joint osteoarthritis. There is mild bilater al neural foraminal stenosis. There is mild central canal stenosis. IMPRESSION: 1. Anterior fusion procedure at T12-L1 and posterior fusion procedure from T11 to L3. 2. Mild lumbar spondylosis. 3. Thoracolumbar levoscoliosis. Reviewed, dictated and finalized at location A. DING RIGGER
--- OUTSIDE RECORDS SUMMARY | 2024-05-26 14:50 | XMS_ITS | Clinical Summary ---
Author Organization [facility] Address [address] [place] [address] Phone Care Team Providers Care Supervisor Statement Clerks Name Role Phone Tanner Corbett MD Primary Care Provider [phone] Teo Dukes MD Unavailable Alex Zavlaa MD Unavailable [phone] Arturo Briceño MD Unavailable [phone] Lewis Grossman MD Unavailable [phone] Allergies Active Allergy Reactions Criticality Noted Date Comments Cefazolin Rash,Hypotension High 04/17/2024 Patient had unexplained hypotension and rash after induction of anesthesia Rocuronium Rash,Hypotension High 04/17/2024 Patient had unexplained hypotension and rash after induction of anesthesia Sulfamethoxazole-Trime thoprim Rash Reaction: Rash, Medications acetaminophen-co deine (TYLENOL with CODEINE #3) 300-30 mg per tablet Take by mouth every 8 (eight) hours as needed 09/01/2023 Active oxyCODONE-acetam inophen (PERCOCET) 5-325 mg per tabletIndication s:Pain Take 1 tablet by mouth every 4 (four) hours as needed for pain 40 tablet 04/19/2024 Active Active Problems Problem Noted Date Diagnosed Date Spinal instabilities of thoracolumbar region care following vaginal delivery 07/26 Overview (07/28/2023): # ID: Afebrile. #III: did not get abx prior to delivery, now s/p source control as and no indication for abx unless clinically persistent # Heme: EBL 200 mL. Hemodynamically stable. # CV/Pulm: Gestational hypertension - Blood pressures well controlled on no meds. Asymptomatic, denies KINCAID/RUQ pain/vision changes. CBC/CMP wnl, UPC wnl. Consented to remote BP monitoring. # GI/: Tolerating PO. Voiding spontaneously. # Pain: Controlled with above regimen. # MOC: Declines s/p counseling. # MOF: Formula feeding. Urine drug screen not indicated. Patient informed of results: N/A. # Post DVT prophylaxis: The patient has the following MAJOR risk factors prolonged labor OR antepartum admission >72h immediately prior to delivery and the following MINOR risk factors tobacco use. enoxaparin 40 mg daily ordered for VTE prophylaxis. # Disposition: Follow up task sent to [facility] scheduling pool. Desires discharge home today. #Rh neg: Baby also Rh negative, no additional rhogam needed #T12-L1 compression fx: to follow-up with NSGY for further hardware removal #ICP: s/p delivery premature rupture of membranes (PPROM) with unknown onset of labor 07/14/2023 Overview (07/27/2023): Jillian Valle is a 32 y.o. female at 32w2d who is dated by L=1 and is being transferred from [facility] to L&D for augmentation of labor in setting of PPROM now complicated by presumed chorioamnionitis. Admit to L&D: Consents signed and placed in chart. Labs: pending, T&S active . Labor augmentation with OT . FWB: Continuous monitoring. tracing category I. ID: 3rd trimester HIV (>28 wga) negative on 07/13. GBS negative on 07/13 . RPR on admission: negative. History of genital HSV or HSV 1/2 seropositivity: No. Membrane Status: PPROM on 07/12 . Indications for UDS: none MOF: Plans to formula feed. Urine drug screen not indicated. MOC: declines . Pain management: Desires epidural. Post DVT prophylaxis: The patient has the following MAJOR risk factors prolonged labor OR antepartum admission >72h immediately prior to delivery and the following MINOR risk factors tobacco use. enoxaparin 40 mg daily will be ordered for VTE prophylaxis . #III: amp/gent until delivery #ICP: getting induced now #VZV equiv: varivax #Rh neg: Rhogam protocol #hx gHTN #T12-L1 compression fx with hardware still in place: s/p ANES consult, appropriate for neuraxial Encounter for supervision of normal in first trimester 03/02/2023 Overview (03/12/2023): 03/12/23- cell free dna testing is negative Prior complicated by PIH, antepartum 1 05/02/2022 Overview (03/02/2023): Never told preeclampsia Assessment & Plan (03/02/2023 3:14 PM DIET THERAPIST): To 24 hour urine To cmp Tobacco dependence 03/02/2023 Assessment & Plan (03/02/2023 3:36 PM DIET THERAPIST): The patient was encouraged to stop smoking. Techniques for smoking cessation were discussed to the patient's level of interest. Marijuana smoker 03/02/2023 Assessment & Plan (03/02/2023 3:52 PM DIET THERAPIST): The patient was instructed to stop smoking marijuana as it is bad for the baby's brain development. LFT elevation 01/12/2023 Overview (01/12/2023): Rechecking today Assessment & Plan (03/02/2023 3:59 PM DIET THERAPIST): To cmp Assessment & Plan (01/12/2023 4:55 PM CDT): I do not have the labs from [place] as of yet, but will recheck the liver function etc. to get an idea what is happening. I noted to her that I would try to contact Dr. Zavala, I did encourage her to contact Dr. Zavala again and give update. I strongly encouraged her get set up for that pain management follow-up, if needs be I will put in another referral. Addendum [id number]: Had discussion with Dr. Zavala, who called to review situation. He gave me a run down on the case, and we treated numbers so that we can get in touch with each other needed in the future. We will have to manage closely. The putative seromas more of soft tissue swelling than a fluid pocket and is not amenable to drainage it seems. He is handling her disability paperwork, which I appreciate strongly. I do not believe a 2nd opinion is warranted at this point, but will continue to monitor her closely to reassure. The hall will be getting her back in with pain management, we will have to work on that with alacrity T12 compression fracture, sequela 05/26/2022 Assessment & Plan (03/02/2023 3:12 PM DIET THERAPIST): She will need anesthesia consult. She sees neuro in . To get vaginal delivery clearance in writing To ask him about epidural. To prepare herself for natural child We discussed chuck villareal and Lamaze. To continue with her PT Assessment & Plan (07/23/2022 2:24 PM CDT): Pain drastically improved since surgery, obviously still not 100% with recovery ongoing. Has follow up on 08/03/[address] Zavala. Acute midline low back pain without sciatica Compression fracture of L1 lumbar vertebra 04/15 Assessment & Plan (04/15/2022 1:34 PM DIET THERAPIST): Checking RF and inflammatory marker, given reports of arthralgias in the past prior to the fracture Continue TLSO for 2 weeks, dictated by pain level MRI L-spine is being considered We will need to bring PT in at some point, but I would hope to have further control on the pain levels Continue ibuprofen, add tylenol as well as adjunct. Keep tramadol PRN for breakthrough pain Anxiety 03/27/2022 Assessment & Plan (03/02/2023 3:58 PM DIET THERAPIST): Will see if the atarax helps so that she can get off the clonezapam We discussed risk of defects and addiction. Assessment & Plan (03/27/2022 3:04 PM DIET THERAPIST): Patient follows with Dr. 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 03/02/2023 Mass of breast 03/06/2014 03/02/2023 Herpes zoster 07/19/2013 03/02/2023 Breast pain 07/19/2013 03/02/2023 Vaginal discharge 07/19/2013 03/02/2023 Encounters Date Type Department Care Team Description 05/22/2024 Telephone [facility] Accountable Care Organization [address] [place] [id number] Palmira Connell MA Successful Phone Call (AWV SCHEDULING) 04/17/2024 7:34 AM DIET THERAPIST Anesthesia Event [facility] Operating Room [address] [place] [id number] Edmund Camacho, 04/17/2024 7:30 AM DIET THERAPIST - 04/17/2024 12:00 PM DIET THERAPIST Surgery [facility] Operating Room [address] [place] [id number] Alex Zavala MD Thoracic 11-12, Thoracic 12-Lumbar 1, Lumbar 1-2 posterolateral instrumented fusion and Thoracic 12-Lumbar 1 Osteotomy with [employer] 04/17/2024 6:03 AM DIET THERAPIST - 04/19/2024 12:01 PM DIET THERAPIST Hospital Encounter [address] [address] Alex Zavala MD Discharge Disposition: Discharge to home or self care 04/03/2024 7:45 AM DIET THERAPIST Pre-Admission Testing [facility] Pre Anesthesia Testing [address] [place] [address] Cassidy Camacho NP from Last 3 Months Immunizations Name Administration Dates Next Due Influenza, Unspecified 05/04/2022(Deferr ed: Patient Refused),03/27/2022(Deferred: Patient Refused),05/04/2021(Deferred: Patient Refused),03/27/2021(Deferred: Patient Refused) Tdap 07/22/2023,02/13/2020 Varicella 07/28/2023 Surgical History Surgery Date Site/Laterality Comments NC LAPAROSCOPY SURG CHOLECYSTECTOMY Cholecystectomy Laparoscopic - (Added by TW Conv) NC ERCP DX COLLECTION SPECIMEN BRUSHING/WASHING Endoscopic Retrograde Cholangiopancreatography (ERCP) - w/ stent placement x2, 12/2014 c/b pancreatitis, 01/2015 (Added by TW Conv) FRACTURE SURGERY July 20 2021 SPINE SURGERY July 20 2021, december Medical History Medical History Date Comments Personal history of other di seases of the digestive system History of gastric ulcer - ( Added by TW Conv) Personal history of other me ntal and behavioral disorders History of anxiety - (Added by TW Conv) Anxiety Arthritis Osteoporosis Migraines Hypertension Pancreatitis 03/18/2015 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 Herpes zoster 07/19/2013 Family History Medical History Relation Name Comments Diabetes Brother 1 Jaylon Heart disease Brother 1 Jaylon Family history of cardiac disorder - (Added by TW Conv) Vision loss Brother 1 Jaylon Hypertension Brother 2 Jaylon Family history of hypertension - (Added by TW Conv) Migraines Brother 3 Family history of migraine headaches - (Added by TW Conv) Depression Father Simeon Family history of depression - (Added by TW Conv) Hypertension Father Simeon Family history of hypertension - (Added by TW Conv) Migraines Father Simeon Family history of migraine headaches - (Added by TW Conv) Miscarriages / Stillbirths Mother Vita Cancer Neg Hx no colon, breas t or informaticist cancer cmt 03/02/23 Relation Name Status Comments Brother 1 Jaylon Brother 2 Jaylon Brother 3 Father Simeon Alive Mother Vita Alive Social History Tobacco Use Types Packs/Day Years Used Date Smoking Tobacco: Some Days Cigarettes 0.2 15 Passive Smoke Exposure: Current Smokeless Tobacco: Never Tobacco Cessation:Ready to Q uit: Yes; Counseling Given: Not Answered [facility] Utilities Answer Date Recorded In the past 12 months has th e [employer], [employer] oil, or water [employer] threatened to shut off services in your home? No 04/15/2024 Humiliation, Afraid, Rape, and Kick questionnair e Answer Date Recorded Within the last year, have y ou been afraid of your partner or ex-partner? No 03/02/2023 Within the last year, have y ou been humiliated or emotionally abused in other ways by your partner or ex-partner? No Within the last year, have y ou been kicked, hit, slapped, or otherwise physically hurt by your partner or ex-partner? No 03/02/2023 Within the last year, have y ou been raped or forced to have any kind of sexual activity by your partner or ex-partner? No 03/02/2023 Social Connection and Isolat ion Panel [NHANES] Answer Date Recorded In a typical week, how many times do you talk on the phone with family, friends, or neighbors? More than three times a week 04/15/2024 How often do you get togethe r with friends or relatives? More than three times a week 04/15/2024 How often do you attend chur ch or hinduism services? Never 04/15/2024 Do you belong to any clubs o r organizations such as latter-day groups, unions, fraternal or athletic groups, or school groups? No 04/15/2024 How often do you attend meet ings of the clubs or organizations you belong to? Never 04/15/2024 Are you , , di vorced, , never , or living with a partner? 04/15/2024 AUDIT-C Answer Date Recorded Q1: How often do you have a drink containing alcohol? Never 04/17/2024 Q2: How many drinks containi ng alcohol do you have on a typical day when you are drinking? Patient does not drink Q3: How often do you have si x or more drinks on one occasion? Never 04/17/2024 Overall Financial Resource Strain (CARDIA) Answe r Date Recorded How hard is it for you to pa y for the very basics like food, housing, medical care, and heating? Not hard at all 04/15/2024 PHQ-2 Answer Date Recorded PHQ-2 Total Score (If total score is 3 or more points, staff should administer the PHQ-9) 0 01/19/2024 Hunger Vital Sign Answer Date Recorded Within the past 12 months, y ou worried that your food would run out before you got the money to buy more. Never true 04/15/20 24 Within the past 12 months, t he food you bought just didn't last and you didn't have money to get more. Never true 04/15/2024 PRAPARE - Transportation Answer Date Re corded In the past 12 months, has l ack of transportation kept you from medical appointments or from getting medications? No 03/27 In the past 12 months, has l ack of transportation kept you from meetings, work, or from getting things needed for daily living? No 04/15/2024 Housing Stability Vital Sign Answer Steve e Recorded In the last 12 months, was t here a time when you were not able to pay the mortgage or rent on time? No 07/15/2023 In the last 12 months, how many places have you lived? 1 07/15/2023 In the last 12 months, was t here a time when you did not have a steady place to sleep or slept in a correction (including now)? No 07/15/2023 Housing Stability Vital Sign Answer Steve e Recorded In the last 12 months, was t here a time when you were not able to pay the mortgage or rent on time? No 04/15/2024 In the past 12 months, how m any times have you moved where you were living? 1 04/15/2024 At any time in the past 12 m [facility], were you homeless or living in a correction (including now)? No 04/15/2024 Personal Safety Answer Date Recorded Have you ever been in or are you currently in a harmful physical or emotional relationship or is someone making you feel afraid or unsafe? Denies 04/17/2024 Comments No Sex and Gender Information Value Date Recorded Sex Assigned at Not on file Legal Sex Female 9:11 PM DIET THERAPIST Gender Identity Female 03/26/2022 10:12 AM DIET THERAPIST Sexual Orientation Not on file Obstetrics History Para Term AB IAB SAB Ectopic Multiple Livin g Live Births 2 2 1 1 0 2 2 Date Outcome GA Total Labor Labor/2nd/3rd Weight Sex Type Anes PTL Kerry A1 A5 Name Clin 2019 Term 37w 0d 2.58 kg (5 lb 11 oz) M Vagina l Epidur al Livin g Complications: Makayla dale Hypertension,Intrahepatic cholestasis 2023 32w 2d 0h 04m 0h 04m 1.85 kg (4 lb 1.3 oz) M Vagina l None Y Livin g 9 9 Saran Louis, Kathy aparicio MD Complications:None Delivery Location:[facility] Main C ampus ([facility] 58LD) Comments H/o pih. She was induced for this at 37 weeks. She was already 3-4 cm Also had intrahepatic cholestasis of . Started late second trimester She doesn't remember if her labs were abnl. Last Filed Vital Signs Vital Sign Reading Time Taken Comments Blood Pressure 126/78 04/19/2024 8:05 AM DIET THERAPIST Pulse 88 04/19/2024 8:05 AM DIET THERAPIST Temperature 37.5 ??C (99.5 ??F) 04/19/2024 8:05 AM CS T Respiratory Rate 18 04/19/2024 3:45 AM DIET THERAPIST Oxygen Saturation 99% 04/19/2024 8:05 AM DIET THERAPIST Inhaled Oxygen Concentration - - Weight 49 kg (108 lb) 04/17/2024 6:45 AM DIET THERAPIST Height 162.6 cm (5' 4 ) 03/21/2024 1:20 PM DIET THERAPIST Body Mass Index 18.54 03/21/2024 1:20 PM DIET THERAPIST Plan of Treatment Health Maintenance Due Date Last Done Comments Pneumococcal vaccine <65 (1 of 2 - PCV) 11/22/1997 Hepatitis B Screening 11/22/2009 Regular Well Visit/Exam 18-64 11/22/2009 Influenza Vaccine (#1) 2023 Cervical Cancer Screening 03/02/2024 03/02/2023 Depression Screening 01/18/2025 01/19/2024, 04/05/2023, 02/02/2023, Additional history exists DTaP/Tdap/Td Vaccine (3 - Td or Tdap) 07/21/2033 07/22/2023, 02/13/2020 Hepatitis C Screening Completed 07/14/2023, 015 Varicella Vaccines Discontinued 07/28/2023 HPV Vaccines Aged Out No longer eligi ble based on patient's age to complete this topic Medical Devices Implanted Type Area Bead Builder Device Identifier Shelf Expiration Date Model / Serial / Lot [employer] Graft Bone Magnetos 10cc 1-2mm Granules In Moldable Putty 703-038-Us - [id number] Implanted:Qty : 1 on 04/17/2024 by Alex Zavala MD at [facility] N/A: Spine Lumbar [employer] [id number] 11/24/2028 703-038-[id number] S / / [id number] 185mm Rods Implanted:Qty : 2 on 04/17/2024 by Alex Zavala MD at [facility] N/A: Spine Lumbar [employer] [id number] / / [employer] Graft Bone Magnetos 10cc 1-2mm Granules In Moldable Putty [id number]-[id number] - [id number] Implanted:Qty : 1 on 04/17/2024 by Alex Zavala MD at [facility] N/A: Spine Lumbar [employer] [id number] 11/24/2028 703-038-[id number] S / / [id number] [employer] Spinal Implants Cage Spinal Lumbar 0 Degree Plif Forza [id number] Titanium [id number] - [id number] Implanted:Qty : 1 on 04/17/2024 by Alex Zavala MD at [facility] N/A: Spine Lumbar [employer]inal Implants [id number] / / 5.5 X 45 Screw Implanted:Qty : 3 on 04/17/2024 by Alex Zavala MD at [facility] N/A: Spine Lumbar [employer] [id number] / / 5.5 X 50 Screw Implanted:Qty : 1 on 04/17/2024 by Alex Zavala MD at [facility] N/A: Spine Lumbar [employer] [id number] / / 6.5 X 50 Screw Implanted:Qty : 4 on 04/17/2024 by Alex Zavala MD at [facility] N/A: Spine Lumbar [employer] [id number] / / Post Clips Implanted:Qty : 7 on 04/17/2024 by Alex Zavala MD at [facility] N/A: Spine Lumbar [employer] [id number] / / Post Nuts Implanted:Qty : 8 on 04/17/2024 by Alex Zavala MD at [facility] N/A: Spine Lumbar [employer] [id number] / / Large Open Offset Connector Implanted:Qty : 1 on 04/17/2024 by Alex Zavala MD at [facility] N/A: Spine Lumbar [employer] [id number] / / Procedures Procedure Name Priority Date/Time Associated Diagnosis Comments FL FLUOROSCOPY < 1 HOUR IP Routine 04/17/2024 10:53 AM DIET THERAPIST NC AN ELECTIVE ENDOTRACHEAL AIRWAY Routine 04/17/2024 8:55 AM DIET THERAPIST FUSION LUMBAR - POSTERIOR LAMINAR INTERBODY FUSION 04/17/2024 7:34 AM DIET THERAPIST Spinal instabilities of thoracolumbar region Case Notes Thoracic 11-12, Thoracic 12-Lumbar 1, Lumbar 1-2 posterolateral instrumented fusion and Thoracic 12-Lumbar [address] [facility], QA AUTOMATION DEVELOPER, C-ARM, Prone Position, Open Brandon and Dr Darren Chan assistingPatient preop clearance will be done at [facility] in [facility] any questions please contact Christy Clement at [phone] HEPATITIS C ANTIBODY Routine 07/14/2023 5:54 PM CDT PAP AND HPV, REFLEX TO HPV GENOTYPES Routine 03/02/2023 5:26 PM DIET THERAPIST Encounter for supervision of normal in first trimester, unspecified 11 weeks gestation of from Last 3 Months or Most Recently Relevant to Health Maintenance Results * FL Fluoroscopy < 1 Hour (04/17/2024 10:53 AM DIET THERAPIST) Narrative [facility] - 04/17/2024 10:53 AM DIET THERAPIST The images from this study are not interpreted by Radiology. ??Please refer to the physician's procedure / OR operative note. Alex Zavala MD IMG FLUOROSCOPY PROCEDUR ES Final Result [facility] * NC AN ELECTIVE ENDOTRACHEAL AIRWAY (04/17/2024 8:55 AM DIET THERAPIST) Narrative Cynthia Flores CRNA - 04/17/2024 8:55 AM DIET THERAPIST Cynthia Flores CRNA ? 04/17/2024 ??8:56 AM Airway Patient location: OR Urgency: elective Indications for airway management: anesthesia Difficult airway: no Staff: Supervising provider: Edmund Camacho DO Placed by: BOAT LOADER HELPER: Cynthia Flores CRNA Emergent airway documentation: Risks and benefits discussed: yes Consent obtained: yes Consent given by: patient Airway prep: Preoxygenated: yes Patient position: sniffing MILS maintained throughout: yes Mask difficulty assessment: 0 - not attempted Spontaneous ventilation during airway: absent Sedation level during airway: GA Final airway details: Final airway type: endotracheal airway Tube type: ETT ETT size: 7.0 mm Cuffed: yes Technique used for successful ETT placement: video laryngoscopy Devices/Methods used in placement: intubating stylet Insertion site: oral Blade type: Lizeth Video blade type: Holder Blade size: 3 Cormack-Lehane (video): grade I - full view of glottis Cuff volume: 10 mL Cuff inflated with: air ETT to lips: 21 cm Placement verified by: auscultation and CO2 detection Airway secured with: silk tape Number of attempts: 1 Ventilation between attempts: noneno us Edmund Camacho DO ANESTHESIA ORDERABLES Final R esult * Hepatitis C antibody Blood (07/14/2023 5:54 PM CDT) Hep C Ab Nonreactive Nonreactive Comment:Antibodies to HCV no t detected. Does NOT exclude the possibility of recent exposure to HCV. Current interpretive data was last revised on 21 Blood 07/14/2023 5:54 PM CDT 07/14/2023 6:25 PM CDT Ricarda Jensen MD LAB MICROBIOLOGY - GENERAL ORDERABLES Final Result [facility] Department [place] [address] * Pap and HPV, reflex to HPV Genotypes (03/02/2023 5:26 PM DIET THERAPIST) CLINICAL INFORMATION: [facility] [employer] [facility] Comment: CARE LMP [facility] Comment:12/13/22 Previous Pap [facility] Comment:NONE GIVEN Prev. Bx [facility] [employer] [facility] Comment:NONE GIVEN SOURCE: [facility] Comment:Cervix, Endocervix Pap, specimen adequacy [facility] Comment: Satisfactory for evaluation. Endocervical/transformation zone component present. HPV interp [facility] Comment: Cytology Results: Negative for intraepithelial lesion or malignancy. Quality Assurance Associate [facility] Comment: BES, CT(ASCP) CT screening location: [place] [address] [place] [address] Comment [facility] Comment: EXPLANATORY NOTE: The Pap is a screening test for cervical cancer. It is not a diagnostic test and is subject to false negative and false positive results. It is most reliable when a satisfactory sample, regularly obtained, is submitted with relevant clinical findings and history, and when the Pap result is evaluated along with historic and current clinical information. EFFECTIVE MARCH 22, 2023, the version of ThinPrep you ordered, commonly known as manual ThinPrep, will be DISCONTINUED. An alternative form of ThinPrep, called ThinPrep Imaging, will continue to be available. For a copy of the client communication (TIS Client Letter) showing TIS test codes, see [email or web address], and navigate to Well[employer]Woman>Physician Materials>TIS Client Letter. You can also call for test code assistance. Human papillomavirus DNA, High Risk E6/E7 Not Detected NOT DETECTED [employer] [facility] Comment: Not Detected High Risk HPV types (16,18,31,33,35,39,45,51,52, 56,58,59,66,68) were not detected. Other HPV types which cause anogenital lesions may be present. The significance of the other types of HPV in malignant processes has not been established. Methodology: Real Time PCR ? Thin prep 03/02/2023 5:26 PM DIET THERAPIST 03/03/2023 4:39 AM DIET THERAPIST Chloe Page MD LAB CYTOLOGY ORDERA MONET Final Result [facility] [address] [place] [id number] [employer] [address] [place] [address] from Last 3 Months or Most Recently Relevant to Health Maintenance Insurance [facility] Advance Directives For more information, please contact: [phone] * Full Code (Latest Code Status on File) Date Activated Date Inactivated Comments 04/17/2024 12:53 PM 04/19/2024 4:01 PM * Full Code Date Activated Date Inactivated Comments 07/27/2023 2:49 PM 07/28/2023 7:33 PM * Full Code Date Activated Date Inactivated Comments 07/14/2023 2:46 PM 07/27/2023 2:49 PM Full CPR in c ase of cardiopulmonary arrest Care Teams Supervisor Statement Clerks Relationship Specialty Start Date End Date Tanner Corbett MD [address] [place] [address] PCP - General Family Medicine 03/25/22 Teo Dkues MD [address] [place] [address] Referring Physician Psychiatry 03/27/22 Alex Zavala MD [address] [place] [address] Consulting Physician Neurosurgery 01/12/23 Arturo Briceño MD [address] [facility] [address] [place], [place] [id number] Referring Physician Obstetrics and Gynecology 04/05/23 Lewis Grossman MD [address] [place] [address] DE[place] [address] Referring Physician Pain Management 01/19/24
--- OUTSIDE RECORDS SUMMARY | 2024-05-26 14:50 | XMS_ITS | Referral Summary ---
Author Organization [facility] Address [address] [place] [address] Phone Care Team Providers Care Manager Clinical Services Name Role Phone Tanner Corbett MD Primary Care Provider [phone] Teo Dukes MD Unavailable Alex Zavala MD Unavailable [phone] Arturo Briceño MD Unavailable [phone] Lewis Grossman MD Unavailable [phone] Encounters Date Type Department Care Team Description 05/22/2024 Telephone [facility] Accountable Care Organization [address] [place] [address] Palmira Connell MA Successful Phone Call (AWV SCHEDULING) 04/17/2024 6:03 AM NUCLEAR FUELS RESEARCH ENGINEER - 04/19/2024 12:01 PM NUCLEAR FUELS RESEARCH ENGINEER Hospital Encounter [address] [address] Alex Zavala MD Discharge Disposition: Discharge to home or self care 04/17/2024 7:30 AM NUCLEAR FUELS RESEARCH ENGINEER - 04/17/2024 12:00 PM NUCLEAR FUELS RESEARCH ENGINEER Surgery [facility] Operating Room [address] [place] [id number] Alex Zavala MD Thoracic 11-12, Thoracic 12-Lumbar 1, Lumbar 1-2 posterolateral instrumented fusion and Thoracic 12-Lumbar 1 Osteotomy with [employer] 04/17/2024 7:34 AM NUCLEAR FUELS RESEARCH ENGINEER Anesthesia Event [facility] Operating Room [address] [place] [address] Edmund Camacho, 04/03/2024 7:45 AM NUCLEAR FUELS RESEARCH ENGINEER Pre-Admission Testing [facility] Pre Anesthesia Testing [address] [place] [address] Cassidy Camacho, UNIT TENDER from Last 3 Months Allergies Active Allergy Reactions Criticality Noted Date [...] # Disposition: Follow up task sent to [facility] scheduling pool. Desires discharge home today. #Rh [...] preeclampsia Assessment & Plan (03/02/2023 3:14 PM NUCLEAR FUELS RESEARCH ENGINEER): To 24 hour urine To cmp Tobacco dependence 03/02/2023 Assessment & Plan (03/02/2023 3:36 PM NUCLEAR FUELS RESEARCH ENGINEER): The patient was encouraged to stop smoking. Techniques for smoking cessation were discussed to the patient's level of interest. Marijuana smoker 03/02/2023 Assessment & Plan (03/02/2023 3:52 PM NUCLEAR FUELS RESEARCH ENGINEER): The patient was instructed to stop smoking marijuana as it is bad for the baby's brain development. LFT elevation 01/12/2023 Overview (01/12/2023): Rechecking today Assessment & Plan (03/02/2023 3:59 PM NUCLEAR FUELS RESEARCH ENGINEER): To cmp Assessment & Plan (01/12/2023 4:55 PM CDT): I do not have the labs from [facility] as of yet, but will recheck the liver function etc. to get an idea what is happening. I noted to her that I would try to contact Dr. Zavala, I did encourage her to contact Dr. Zavala again and give update. I strongly encouraged her get set up for that pain management follow-up, if needs be I will put in another referral. Addendum 1653: Had discussion with Dr. Zavala, who called [...] 05/26/2022 Assessment & Plan (03/02/2023 3:12 PM NUCLEAR FUELS RESEARCH ENGINEER): She will need anesthesia consult. She sees neuro in . To get vaginal delivery clearance in writing To ask him about epidural. To prepare herself for natural child We discussed chuck method and Lamaze. To continue with her PT Assessment & Plan (07/23/2022 2:24 PM CDT): Pain drastically improved since surgery, obviously still not 100% with recovery ongoing. Has follow up on 08/03/[address] Zavala. Acute midline low back pain without sciatica Compression fracture of L1 lumbar vertebra 04/15 Assessment & Plan (04/15/2022 1:34 PM NUCLEAR FUELS RESEARCH ENGINEER): Checking RF and inflammatory marker, given reports [...] 03/27/2022 Assessment & Plan (03/02/2023 3:58 PM NUCLEAR FUELS RESEARCH ENGINEER): Will see if the atarax helps so that she can get off the clonezapam We discussed risk of defects and addiction. Assessment & Plan (03/27/2022 3:04 PM NUCLEAR FUELS RESEARCH ENGINEER): Patient follows with Dr. 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 03/02/2023 Mass of breast 03/06/2014 03/02/2023 Herpes zoster 07/19/2013 03/02/2023 Breast pain 07/19/2013 03/02/2023 Vaginal discharge 07/19/2013 03/02/2023 Immunizations Name Administration Dates Next Due Influenza, Unspecified 05/04/2022(Deferr ed: Patient Refused),03/27/2022(Deferred: Patient Refused),05/04/2021(Deferred: Patient Refused),03/27/2021(Deferred: Patient Refused) Tdap 07/22/2023,02/13/2020 Varicella 07/28/2023 Social History Tobacco Use Types Packs/Day Years Used Date Smoking Tobacco: Some Days Cigarettes 0.2 15 Passive Smoke Exposure: Current Smokeless Tobacco: Never Tobacco Cessation:Ready to Q uit: Yes; Counseling Given: Not Answered [facility] [employer] OGK-5 Answer Date Recorded In the past 12 months has [employer] gas, oil, or water [employer] threatened to shut off services in your [...] week 04/15/2024 How often do you attend [facility] or shinto services? Never 04/15/2024 Do you belong to any clubs o r organizations such as sikh groups, unions, fraternal or athletic groups, or [...] place to sleep or slept in a alf (including now)? No 07/15/2023 Housing Stability Vital Sign Answer Steve e Recorded In the last 12 months, was t here a time when you were not able to pay the mortgage or rent on time? No 04/15/2024 In the past 12 months, how m any times have you moved where you were living? 1 04/15/2024 At any time in the past 12 m [facility], were you homeless or living in a alf (including now)? No 04/15/2024 Personal Safety Answer Date Recorded Have you ever been in or are you currently in a harmful physical or emotional relationship or is someone making you feel afraid or unsafe? Denies 04/17/2024 Comments No Sex and Gender Information Value Date Recorded Sex Assigned at Not on file Legal Sex Female 9:11 PM NUCLEAR FUELS RESEARCH ENGINEER Gender Identity Female 03/26/2022 10:12 AM NUCLEAR FUELS RESEARCH ENGINEER Sexual Orientation Not on file Last Filed Vital Signs Vital Sign Reading Time Taken Comments Blood Pressure 126/78 04/19/2024 8:05 AM NUCLEAR FUELS RESEARCH ENGINEER Pulse 88 04/19/2024 8:05 AM NUCLEAR FUELS RESEARCH ENGINEER Temperature 37.5 ??C (99.5 ??F) 04/19/2024 8:05 AM CS T Respiratory Rate 18 04/19/2024 3:45 AM NUCLEAR FUELS RESEARCH ENGINEER Oxygen Saturation 99% 04/19/2024 8:05 AM NUCLEAR FUELS RESEARCH ENGINEER Inhaled Oxygen Concentration - - Weight 49 kg (108 lb) 04/17/2024 6:45 AM NUCLEAR FUELS RESEARCH ENGINEER Height 162.6 cm (5' 4 ) 03/21/2024 1:20 PM NUCLEAR FUELS RESEARCH ENGINEER Body Mass Index 18.54 03/21/2024 1:20 PM NUCLEAR FUELS RESEARCH ENGINEER Plan of Treatment Not on file Medical Devices Implanted Type Area Detector Car Operator Device Identifier Shelf Expiration Date Model / Serial / Lot [employer] Graft Bone Magnetos 10cc 1-2mm Granules In Moldable Putty 703-038-Us - [id number] Implanted:Qty : 1 on 04/17/2024 by Alex Zavala MD at [facility] N/A: Spine Lumbar [employer] [id number] 11/24/2028 703-038-[id number] S / / [id number] 185mm Rods Implanted:Qty : 2 on 04/17/2024 by Alex Zavala MD at [facility] N/A: Spine Lumbar [employer] [id number] / / [employer] Graft Bone Magnetos 10cc 1-2mm Granules In Moldable Putty 703-038-Us - [id number] Implanted:Qty : 1 on 04/17/2024 by Alex Zavala MD at [facility] N/A: Spine Lumbar [employer] [id number] 11/24/2028 703-038-U S / / [id number] [employer] Spinal Implants Cage Spinal Lumbar 0 Degree Plif Forza [id number] Titanium 38-2007sp - [id number] Implanted:Qty : 1 on 04/17/2024 by Alex Zavala MD at [facility] N/A: Spine Lumbar [employer] Implants [id number] / / 5.5 X 45 Screw Implanted:Qty : 3 on 04/17/2024 by Alex Zavala MD at [facility] N/A: Spine Lumbar [employer] [id number] / / 5.5 X 50 Screw Implanted:Qty : 1 on 04/17/2024 by Alex Zavala MD at [facility] N/A: Spine Lumbar [employer] [id number] / / 6.5 X 50 Screw Implanted:Qty : 4 on 04/17/2024 by Alex Zavala MD at [facility] N/A: Spine Lumbar [employer] [id number] / / Post Clips Implanted:Qty : 7 on 04/17/2024 by Alex Zavala MD at [facility] N/A: Spine Lumbar [employer] [id number] / / Post Nuts Implanted:Qty : 8 on 04/17/2024 by Alex Zavala MD at [facility] N/A: Spine Lumbar [employer] [id number] / / Large Open Offset Connector Implanted:Qty : 1 on 04/17/2024 by Alex Zavala MD at [facility] N/A: Spine Lumbar [employer] [id number] / / Procedures Procedure Name Priority Date/Time Associated Diagnosis Comments FL FLUOROSCOPY < 1 HOUR IP Routine 04/17/2024 10:53 AM NUCLEAR FUELS RESEARCH ENGINEER NE AN ELECTIVE ENDOTRACHEAL AIRWAY Routine 04/17/2024 8:55 AM NUCLEAR FUELS RESEARCH ENGINEER FUSION LUMBAR - POSTERIOR LAMINAR INTERBODY FUSION 04/17/2024 7:34 AM NUCLEAR FUELS RESEARCH ENGINEER Spinal instabilities of thoracolumbar region Case Notes Thoracic 11-12, Thoracic 12-Lumbar 1, Lumbar 1-2 posterolateral instrumented fusion and Thoracic 12-Lumbar 1 Osteotomy with [employer], SOCIAL ORGANIZATION PROFESSOR, C-ARM, Prone Position, Open Brandon and Dr Darren Chan assistingPatient preop clearance will be done at [facility] in [facility] any questions please contact Christy Clement at [phone] HEPATITIS C ANTIBODY Routine 07/14/2023 5:54 PM CDT PAP AND HPV, REFLEX TO HPV GENOTYPES Routine 03/02/2023 5:26 PM NUCLEAR FUELS RESEARCH ENGINEER Encounter for supervision of normal in first trimester, unspecified 11 weeks gestation of from Last 3 Months or Most Recently Relevant to Health Maintenance Results * FL Fluoroscopy < 1 Hour (04/17/2024 10:53 AM NUCLEAR FUELS RESEARCH ENGINEER) Narrative [facility] - 04/17/2024 10:53 AM NUCLEAR FUELS RESEARCH ENGINEER The images from this study are not interpreted by Radiology. ??Please refer to the physician's procedure / OR operative note. Alex Zavala MD IMG FLUOROSCOPY PROCEDUR ES Final Result [facility] * NE AN ELECTIVE ENDOTRACHEAL AIRWAY (04/17/2024 8:55 AM NUCLEAR FUELS RESEARCH ENGINEER) Narrative Cynthia Flores CRNA - 04/17/2024 8:55 AM NUCLEAR FUELS RESEARCH ENGINEER Cynthia Flores CRNA ? 04/17/2024 ??8:56 AM Airway Patient location: OR Urgency: elective Indications for airway management: anesthesia Difficult airway: no Staff: Supervising provider: Edmund Camacho, DO Placed by: FORGE OPERATOR HELPER: Cynthia Flores CRNA Emergent airway documentation: [...] C antibody Blood (07/14/2023 5:54 PM CDT) Pathologist [facility] Hep C Ab Nonreactive Nonreactive Comment:Antibodies to HCV no t detected. Does NOT exclude the possibility of recent exposure to HCV. Current interpretive data was last revised on 21 Blood 07/14/2023 5:54 PM CDT 07/14/2023 6:25 PM CDT Ricarda Jensen MD LAB MICROBIOLOGY - GENERAL ORDERABLES Final Result [facility] Department [place] [address] * Pap and HPV, reflex to HPV Genotypes (03/02/2023 5:26 PM NUCLEAR FUELS RESEARCH ENGINEER) CLINICAL INFORMATION: [facility] Comment: CARE LMP [facility] Comment:12/13/22 Previous Pap [facility] Comment:NONE GIVEN Prev. Bx [facility] Comment:NONE GIVEN SOURCE: [facility] Comment:Cervix, Endocervix Pap, specimen adequacy [facility] Comment: Satisfactory for evaluation. Endocervical/transformation zone component present. HPV interp [facility] [place] [place] Comment: Cytology Results: Negative for intraepithelial lesion or malignancy. Field Aide [facility] Comment: BES, CT(ASCP) CT screening location: [place] [address] [address] [place] [address] [facility] [place] Comment: EXPLANATORY NOTE: The Pap is a [...] Client Letter) showing TIS test codes, see [email or web address], and navigate to [employer]>Physician Materials>TIS Client Letter. You can also call for test code assistance. Human papillomavirus DNA, High Risk E6/E7 Not Detected NOT DETECTED [facility] Comment: Not Detected High Risk HPV types (16,18,31,33,35,39,45,51,52, 56,58,59,66,68) were not detected. Other HPV types which cause anogenital lesions may be present. The significance of the other types of HPV in malignant processes has not been established. Methodology: Real Time PCR ? Thin prep 03/02/2023 5:26 PM NUCLEAR FUELS RESEARCH ENGINEER 03/03/2023 4:39 AM NUCLEAR FUELS RESEARCH ENGINEER us Chloe Page MD LAB CYTOLOGY ORDERA BLES Final Result [facility] [address] [address] [phone] [facility] [address] [place] [address] from Last 3 Months or Most Recently Relevant to Health Maintenance Insurance [facility] Advance Directives For more information, please contact: [phone] * Full Code (Latest Code Status on File) Date Activated Date Inactivated Comments 04/17/2024 12:53 PM 04/19/2024 4:01 PM * Full Code Date Activated Date Inactivated Comments 07/27/2023 2:49 PM 07/28/2023 7:33 PM * Full Code Date Activated Date Inactivated Comments 07/14/2023 2:46 PM 07/27/2023 2:49 PM Full CPR in c ase of cardiopulmonary arrest Care Teams Manager Clinical Services Relationship Specialty Start Date End Date Tanner Corbett MD [address] [place] [address] PCP - General Family Medicine 03/25/22 Teo Dukes MD [address] [place] [address] Referring Physician Psychiatry 03/27/22 Alex Zavala MD [address] [facility] [address] [place] [address] Consulting Physician Neurosurgery 01/12/23 Arturo Briceño MD [address] [facility] [address] [place] [address] Referring Physician Obstetrics and Gynecology 04/05/23 Lewis Grossman MD [address] [facility] [place] [address] Referring Physician Pain Management 01/19/24
== END 2024-05-26 14:48 | disposition home or self-care (01) ==
LOC: ANHIMG 14:48
PROVIDERS: PCP Family Medicine; Visit Provider Neurological Surgery
DX: Z98.1 Arthrodesis status (principal); M43.06 Spondylolysis, lumbar region; M41.85 Other forms of scoliosis, thoracolumbar region
CPT/HCPCS: 72131

== ENCOUNTER 2024-07-04 09:11 | Outpatient (CLI) | payer OTHER, SELFPAY ==
--- NOTE | ~2024-07-04 | MR_ITS ---
MRI of the lumbar spine Clinical History: Spinal instability Technique: Axial T2-weighted images, and sagittal T1-weighted, T2-weighted, and T2 fat-sat images wer e acquired. COMPARISON: 01/25/2024 Findings: There is mild, stable compression deformity of L1, with posterior fixation hardware extendi ng from T11 through L3, with bilateral rods and transpedicular screws present. No new fracture or sub luxation evident. No significant bone marrow signal abnormality seen. At L1-L2, no definite disc bulge or herniation. No spinal canal stenosis or definite neural foraminal narrowing. At L2-L3, there is no disc bulge or herniation. No spinal canal stenosis or definite neural foraminal narrowing. At L3-L4, there is no disc bulge or herniation. There is minimal facet hypertrophy. No central canal stenosis or neural foraminal narrowing. At L4-L5, there is no disc bulge or herniation. There is minimal facet hypertrophy. No central canal stenosis or neural foraminal narrowing. At L5-S1, there is minimal degenerative disc change. No significant disc bulge or herniation. There i s minimal facet hypertrophy. No spinal canal stenosis. Probable minimal left neural foraminal narrowi ng. Right neural foramen preserved. Paravertebral soft tissues are otherwise unremarkable. Impression: Postoperative change from T11 through L3, with underlying chronic L1 compression deformity. Minimal degenerative changes otherwise, as above. Reviewed, dictated and finalized at [facility]. Impression: Postoperative change from T11 through L3, with underlying chronic L1 compressio n deformity. Minimal degenerative changes otherwise, as above.
--- OUTSIDE RECORDS SUMMARY | 2024-07-04 09:52 | XMS_ITS | Clinical Summary ---
Author Organization [facility] Address [address] [place] [address] Phone Care Team Providers Care Cpr Ambulance Driver Name Role Phone Tanner Corbett MD Primary Care Provider [phone] Teo Dukes MD Unavailable Alex Zavala MD Unavailable [phone] Arturo Briceño MD Unavailable [phone] Lewis Grossman MD Unavailable [phone] Allergies Active Allergy Reactions Criticality Noted [...] # Disposition: Follow up task sent to [facility] scheduling pool. Desires discharge home today. #Rh [...] preeclampsia Assessment & Plan (03/02/2023 3:14 PM BRIM BLOCKER): To 24 hour urine To cmp Tobacco dependence 03/02/2023 Assessment & Plan (03/02/2023 3:36 PM BRIM BLOCKER): The patient was encouraged to stop smoking. Techniques for smoking cessation were discussed to the patient's level of interest. Marijuana smoker 03/02/2023 Assessment & Plan (03/02/2023 3:52 PM BRIM BLOCKER): The patient was instructed to stop smoking marijuana as it is bad for the baby's brain development. LFT elevation 01/12/2023 Overview (01/12/2023): Rechecking today Assessment & Plan (03/02/2023 3:59 PM BRIM BLOCKER): To cmp Assessment & Plan (01/12/2023 4:55 PM CDT): I do not have the labs from [facility] as of yet, but will recheck the liver function etc. to get an idea what is happening. I noted to her that I would try to contact Dr. Zavala, I did encourage her to contact Dr. Zavala again and give update. I strongly encouraged her get set up for that pain management follow-up, if needs be I will put in another referral. Addendum [id number]: Had discussion with Dr. Zavala, who called [...] 05/26/2022 Assessment & Plan (03/02/2023 3:12 PM BRIM BLOCKER): She will need anesthesia consult. She sees [...] 04/15 Assessment & Plan (04/15/2022 1:34 PM BRIM BLOCKER): Checking RF and inflammatory marker, given reports [...] 03/27/2022 Assessment & Plan (03/02/2023 3:58 PM BRIM BLOCKER): Will see if the atarax helps so that she can get off the clonezapam We discussed risk of defects and addiction. Assessment & Plan (03/27/2022 3:04 PM BRIM BLOCKER): Patient follows with Dr. Dukes (psych) Notalgia [...] Encounters Date Type Department Care Team Description 05/30/2024 Orders Only [facility] Primary Care at [address] [phone] ProviderBernabe MD 05/22/2024 Telephone [facility] Accountable Care Organization [address] [place] [id number] Palmira Connell MA Successful Phone Call (AWV SCHEDULING) 04/17/2024 7:34 AM BRIM BLOCKER Anesthesia Event [facility] [address] [place] [id number] Edmund Camacho, 04/17/2024 7:30 AM BRIM BLOCKER - 04/17/2024 12:00 PM BRIM BLOCKER Surgery [facility] [address] [place] [address] Alex Zavala MD Thoracic 11-12, Thoracic 12-Lumbar 1, Lumbar 1-2 posterolateral instrumented fusion and Thoracic 12-Lumbar 1 Osteotomy with [facility] 04/17/2024 6:03 AM BRIM BLOCKER - 04/19/2024 12:01 PM BRIM BLOCKER Hospital Encounter [address] [place] [address] Alex Zavala MD Discharge Disposition: Discharge to home or self care from Last 3 Months Immunizations Immunization Administration Dates Next Due Influenza, Unspecified 05/04/2022(Deferr ed: Patient Refused),03/27/2022(Deferred: Patient Refused),05/04/2021(Deferred: Patient Refused),03/27/2021(Deferred: Patient Refused) Tdap 07/22/2023,02/13/2020 Varicella 07/28/2023 Surgical History Surgery Date Site/Laterality Comments [place] LAPAROSCOPY SURG CHOLECYSTECTOMY Cholecystectomy Laparoscopic - (Added by TW Conv) [place] ERCP DX COLLECTION SPECIMEN BRUSHING/WASHING Endoscopic Retrograde [...] - (Added by TW Conv) Hypertension Father Ismeon Family history of hypertension - (Added by TW Conv) Migraines Father Simeon Family history of migraine headaches - (Added by TW Conv) Miscarriages / Stillbirths Mother Vita Cancer Neg Hx no colon, breas t or senior 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 Never 04/15/2024 Do you belong to any clubs o r organizations such as mormon groups, unions, fraternal or athletic groups, or [...] place to sleep or slept in a senior living (including now)? No 07/15/2023 Housing Stability Vital [...] time in the past 12 m [facility], were you homeless or living in a senior living (including now)? No 04/15/2024 Personal Safety Answer Date Recorded Have you ever been in or are you currently in a harmful physical or emotional relationship or is someone making you feel afraid or unsafe? Denies 04/17/2024 Comments No Sex and Gender Information Value Date Recorded Sex Assigned at Not on file Legal Sex Female 9:11 PM BRIM BLOCKER Gender Identity Female 03/26/2022 10:12 AM BRIM BLOCKER Sexual Orientation Not on file Obstetrics History [...] Saran Louis, Kathy aparicio MD Complications:None Delivery Location:[facility] Main C ampus ([facility] 58LD) Comments H/o pih. She was induced for this at 37 weeks. She was already 3-4 cm Also had intrahepatic cholestasis of . Started late second trimester She doesn't remember if her labs were abnl. Last Filed Vital Signs Vital Sign Reading Time Taken Comments Blood Pressure 126/78 04/19/2024 8:05 AM BRIM BLOCKER Pulse 88 04/19/2024 8:05 AM BRIM BLOCKER Temperature 37.5 C (99.5 F) 04/19/2024 8:05 AM BRIM BLOCKER Respiratory Rate 18 04/19/2024 3:45 AM BRIM BLOCKER Oxygen Saturation 99% 04/19/2024 8:05 AM BRIM BLOCKER Inhaled Oxygen Concentration - - Weight 49 kg (108 lb) 04/17/2024 6:45 AM BRIM BLOCKER Height 162.6 cm (5' 4 ) 03/21/2024 1:20 PM BRIM BLOCKER Body Mass Index 18.54 03/21/2024 1:20 PM BRIM BLOCKER Plan of Treatment Health Maintenance Due Date Last Done Comments Hepatitis B Screening 11/22/2009 Regular Well Visit/Exam 18-64 11/22/2009 Pneumococcal vaccine <65 (1 of 2 - PCV) 11/22/2010 Influenza Vaccine (#1) 2023 Cervical Cancer Screening 03/02/2024 03/02/2023 Depression Screening 01/18/2025 01/19/2024, 04/05/2023, 02/02/2023, Additional history exists DTaP/Tdap/Td Vaccine (3 - Td or Tdap) 07/21/2033 07/22/2023, 02/13/2020 Hepatitis C Screening Completed 07/14/2023, 015 Varicella Vaccines Discontinued 07/28/2023 HPV Vaccines Aged Out No longer eligi ble based on patient's age to complete this topic Medical Devices Implanted Type Area Supervisor Paper Machine Device Identifier Shelf Expiration Date Model / Serial / Lot [employer] Graft Bone Magnetos 10cc 1-2mm Granules In Moldable Putty 703-038-Us - [id number] Implanted:Qty : 1 on 04/17/2024 by Alex Zavala MD at [facility] N/A: Spine Lumbar [employer] [id number] 11/24/2028 703-038-[id number] S / / [id number] 185mm Rods Implanted:Qty : 2 on 04/17/2024 by Alex Zavala MD at [facility] N/A: Spine Lumbar [employer] [id number] / / [employer] Graft Bone Magnetos 10cc 1-2mm Granules In Moldable Putty [id number]-[id number] - [id number] Implanted:Qty : 1 on 04/17/2024 by Alex Zavala MD at [facility] N/A: Spine Lumbar [employer] [id number] 11/24/2028 703-038-[id number] S / / [id number] [employer] Spinal Implants Cage Spinal Lumbar 0 Degree Plif Forza [id number] Titanium [id number] - [id number] Implanted:Qty : 1 on 04/17/2024 by Alex Zavala MD at [facility] N/A: Spine Lumbar [employer] Implants [id number] / / 5.5 X 45 Screw Implanted:Qty : 3 on 04/17/2024 by Alex Zavala MD at [facility] N/A: Spine Lumbar [employer] [id number] / / 5.5 X 50 Screw Implanted:Qty : 1 on 04/17/2024 by Alex Zavala MD at [facility] N/A: Spine Lumbar [employer] [id number] / / 6.5 X 50 Screw Implanted:Qty : 4 on 04/17/2024 by Alex Zavala MD at [facility] N/A: Spine Lumbar [employer] [id number] / / Post Clips Implanted:Qty : 7 on 04/17/2024 by Alex Zaavla MD at [facility] N/A: Spine Lumbar [employer] [id number] / / Post Nuts Implanted:Qty : 8 on 04/17/2024 by Alex Zavala MD at [facility] N/A: Spine Lumbar [facility] [id number] / / Large Open Offset Connector Implanted:Qty : 1 on 04/17/2024 by Alex Zavala MD at [facility] N/A: Spine Lumbar [facility] [id number] / / Procedures Procedure Name Priority Date/Time Associated Diagnosis Comments CT LUMBAR SPINE WO CONTRAST Schedule Routine, Read Routine (OP Routine) 05/26/2024 4:02 PM BRIM BLOCKER FL FLUOROSCOPY < 1 HOUR IP Routine 04/17/2024 10:53 AM BRIM BLOCKER VT AN ELECTIVE ENDOTRACHEAL AIRWAY Routine 04/17/2024 8:55 AM BRIM BLOCKER FUSION LUMBAR - POSTERIOR LAMINAR INTERBODY FUSION 04/17/2024 7:34 AM BRIM BLOCKER Spinal instabilities of thoracolumbar region Case Notes Thoracic 11-12, Thoracic 12-Lumbar 1, Lumbar 1-2 posterolateral instrumented fusion and Thoracic 12-Lumbar 1 Osteotomy with [facility], RESET MERCHANDISER, C-ARM, Prone Position, Guillermina [facility] and Dr Darren Chan assistingPatient preop clearance will be done at [facility] any questions please contact Christy Clement at [phone] HEPATITIS C ANTIBODY Routine 07/14/2023 5:54 PM CDT PAP AND HPV, REFLEX TO HPV GENOTYPES Routine 03/02/2023 5:26 PM BRIM BLOCKER Encounter for supervision of normal in first trimester, unspecified 11 weeks gestation of from Last 3 Months or Most Recently Relevant to Health Maintenance Results * CT Lumbar Spine WO Contrast (05/26/2024 4:02 PM BRIM BLOCKER) Anatomical Region Laterality Modality Spine N/A Computed Tomogra phy Historical Provider IMG CT PROCEDURES Final R esult * FL Fluoroscopy < 1 Hour (04/17/2024 10:53 AM BRIM BLOCKER) Narrative [facility] - 04/17/2024 10:53 AM BRIM BLOCKER The images from this study are not interpreted by Radiology. Please refer to the physician's procedure / OR operative note. Alex Zavala MD IMTeressa FLUOROSCOPY PROCEDUR ES Final Result [facility] * VT AN ELECTIVE ENDOTRACHEAL AIRWAY (04/17/2024 8:55 AM BRIM BLOCKER) Narrative Cynthia Flores CRNA - 04/17/2024 8:55 AM BRIM BLOCKER Cynthia Flores CRNA 04/17/2024 8:56 AM Airway Patient location: OR Urgency: elective Indications for airway management: anesthesia Difficult airway: no Staff: Supervising provider: Edmund Camacho DO Placed by: LEI MAKER: Cynthia Flores CRNA Emergent airway documentation: Risks [...] of attempts: 1 Ventilation between attempts: noneno Edmund J.W. Bader DO ANESTHESIA ORDERABLES Final R esult * Hepatitis C antibody Blood (07/14/2023 5:54 PM CDT) Hep C Ab Nonreactive Nonreactive Comment:Antibodies to HCV no t detected. Does NOT exclude the possibility of recent exposure to HCV. Current interpretive data was last revised on 21 Blood 07/14/2023 5:54 PM CDT 07/14/2023 6:25 PM CDT us Ricarda Jensen MD LAB MICROBIOLOGY - GENERAL ORDERABLES Final Result [facility] Department [place] [address] * Pap and HPV, reflex to HPV Genotypes (03/02/2023 5:26 PM BRIM BLOCKER) CLINICAL INFORMATION: [facility] Comment: CARE LMP [facility] Comment:12/13/22 Previous Pap [facility] Comment:NONE GIVEN Prev. Bx [facility] Comment:NONE GIVEN SOURCE: [facility] Comment:Cervix, Endocervix Pap, specimen adequacy [facility] Comment: Satisfactory for evaluation. Endocervical/transformation zone component present. HPV interp [facility] Comment: Cytology Results: Negative for intraepithelial lesion or malignancy. Food Order [facility] Comment: BES, CT(ASCP) CT screening location: [place] [address] [place] [address] Comment [facility] Comment: EXPLANATORY NOTE: The Pap is [...] Client Letter) showing TIS test codes, see [email or web address], and navigate to Well-Woman>Physician Materials>TIS Client Letter. You can also call for test code assistance. Human papillomavirus DNA, High Risk E6/E7 Not Detected NOT DETECTED [facility] /[facility] Comment: Not Detected High Risk HPV types (16,18,31,33,35,39,45,51,52, 56,58,59,66,68) were not detected. Other HPV types which cause anogenital lesions may be present. The significance of the other types of HPV in malignant processes has not been established. Methodology: Real Time PCR Thin prep 03/02/2023 5:26 PM BRIM BLOCKER 03/03/2023 4:39 AM BRIM BLOCKER Chloe Page MD LAB CYTOLOGY ORDERA [facility] Final Result [facility] [address] [place] [address] [facility] [address] [address] [place] [address] from Last 3 Months or Most Recently Relevant to Health Maintenance Insurance [facility] Advance Directives For more information, please contact: [phone] * Full Code (Latest Code Status on File) Date Activated Date Inactivated Comments 04/17/2024 12:53 PM 04/19/2024 4:01 PM * Full Code Date Activated Date Inactivated Comments 07/27/2023 2:49 PM 07/28/2023 7:33 PM * Full Code Date Activated Date Inactivated Comments 07/14/2023 2:46 PM 07/27/2023 2:49 PM Full CPR in c ase of cardiopulmonary arrest Care Teams Cpr Ambulance Driver Relationship Specialty Start Date End Date Tanner Corbett MD [address] [place] [id number] PCP - General Family Medicine 03/25/22 Teo Dukes MD [address] [place] [address] Referring Physician Psychiatry 03/27/22 Alex Zavala MD [address] [facility] [address] [place] [address] Consulting Physician Neurosurgery 01/12/23 Arturo Briceño MD [address] [facility] [address] [place] [address] Referring Physician Obstetrics and Gynecology 04/05/23 Lewis Grossman MD [address] [place] [address] [place] [address] Referring Physician Pain Management 01/19/24
--- OUTSIDE RECORDS SUMMARY | 2024-07-04 09:52 | XMS_ITS | Referral Summary ---
Author Organization [facility] Address [address] [place] [address] Phone Care Team Providers Care Metal Checker Name Role Phone Tanner Corbett MD Primary Care Provider [phone] Teo Dukes MD Unavailable Alex Zavala MD Unavailable [phone] Arturo Briceño MD Unavailable [phone] Lewis Grossman MD Unavailable [phone] Encounters Date Type Department Care Team Description 05/30/2024 Orders Only [facility] Primary Care at [address] [phone] Bernabe Hernandez MD 05/22/2024 Telephone [facility] Accountable Care Organization [address] [place] [id number] Palmira Connell MA Successful Phone Call (AWV SCHEDULING) 04/17/2024 6:03 AM SUSTAINABILITY COORDINATOR - 04/19/2024 12:01 PM SUSTAINABILITY COORDINATOR Hospital Encounter [address] [address] Alex Zavala MD Discharge Disposition: Discharge to home or self care 04/17/2024 7:30 AM SUSTAINABILITY COORDINATOR - 04/17/2024 12:00 PM SUSTAINABILITY COORDINATOR Surgery [facility] Operating Room [address] [place] [id number] Alex Zavala MD Thoracic 11-12, Thoracic 12-Lumbar 1, Lumbar 1-2 posterolateral instrumented fusion and Thoracic 12-Lumbar 1 Osteotomy with [employer] 04/17/2024 7:34 AM SUSTAINABILITY COORDINATOR Anesthesia Event [facility] Operating Room [address] [place] [address] Edmund Camacho, DO from Last 3 Months Allergies Active Allergy [...] # Disposition: Follow up task sent to [facility] scheduling pool. Desires discharge home today. [...] preeclampsia Assessment & Plan (03/02/2023 3:14 PM SUSTAINABILITY COORDINATOR): To 24 hour urine To cmp Tobacco dependence 03/02/2023 Assessment & Plan (03/02/2023 3:36 PM SUSTAINABILITY COORDINATOR): The patient was encouraged to stop smoking. Techniques for smoking cessation were discussed to the patient's level of interest. Marijuana smoker 03/02/2023 Assessment & Plan (03/02/2023 3:52 PM SUSTAINABILITY COORDINATOR): The patient was instructed to stop smoking marijuana as it is bad for the baby's brain development. LFT elevation 01/12/2023 Overview (01/12/2023): Rechecking today Assessment & Plan (03/02/2023 3:59 PM SUSTAINABILITY COORDINATOR): To cmp Assessment & Plan (01/12/2023 4:55 PM CDT): I do not have the labs from [place] as of yet, but will recheck the [...] 05/26/2022 Assessment & Plan (03/02/2023 3:12 PM SUSTAINABILITY COORDINATOR): She will need anesthesia consult. She sees [...] 04/15 Assessment & Plan (04/15/2022 1:34 PM SUSTAINABILITY COORDINATOR): Checking RF and inflammatory marker, given reports [...] 03/27/2022 Assessment & Plan (03/02/2023 3:58 PM SUSTAINABILITY COORDINATOR): Will see if the atarax helps so that she can get off the clonezapam We discussed risk of defects and addiction. Assessment & Plan (03/27/2022 3:04 PM SUSTAINABILITY COORDINATOR): Patient follows with Dr. 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 03/02/2023 Mass of breast 03/06/2014 03/02/2023 Herpes zoster 07/19/2013 03/02/2023 Breast pain 07/19/2013 03/02/2023 Vaginal discharge 07/19/2013 03/02/2023 Immunizations Immunization Administration Dates Next Due Influenza, Unspecified 05/04/2022(Deferr ed: Patient Refused),03/27/2022(Deferred: Patient Refused),05/04/2021(Deferred: Patient Refused),03/27/2021(Deferred: Patient Refused) Tdap 07/22/2023,02/13/2020 Varicella 07/28/2023 Social History Tobacco Use Types Packs/Day Years Used Date Smoking Tobacco: Some Days Cigarettes 0.2 15 Passive Smoke Exposure: Current Smokeless Tobacco: Never Tobacco Cessation:Ready to Q uit: Yes; Counseling Given: Not Answered [facility] [email or web address] Answer Date Recorded In the past 12 months has e [employer], gas, oil, or water [employer] threatened to shut off services in your [...] 04/15/2024 How often do you attend chur or zoroastrian services? Never 04/15/2024 Do you belong to any clubs o r organizations such as jainism groups, unions, fraternal or athletic groups, or [...] place to sleep or slept in a chcf (including now)? No 07/15/2023 Housing Stability Vital Sign Answer Steve e Recorded In the last 12 months, was t here a time when you were not able to pay the mortgage or rent on time? No 04/15/2024 In the past 12 months, how m any times have you moved where you were living? 1 04/15/2024 At any time in the past 12 m [facility], were you homeless or living in a chcf (including now)? No 04/15/2024 Personal Safety Answer Date Recorded Have you ever been in or are you currently in a harmful physical or emotional relationship or is someone making you feel afraid or unsafe? Denies 04/17/2024 Comments No Sex and Gender Information Value Date Recorded Sex Assigned at Not on file Legal Sex Female 9:11 PM SUSTAINABILITY COORDINATOR Gender Identity Female 03/26/2022 10:12 AM SUSTAINABILITY COORDINATOR Sexual Orientation Not on file Last Filed Vital Signs Vital Sign Reading Time Taken Comments Blood Pressure 126/78 04/19/2024 8:05 AM SUSTAINABILITY COORDINATOR Pulse 88 04/19/2024 8:05 AM SUSTAINABILITY COORDINATOR Temperature 37.5 C (99.5 F) 04/19/2024 8:05 AM SUSTAINABILITY COORDINATOR Respiratory Rate 18 04/19/2024 3:45 AM SUSTAINABILITY COORDINATOR Oxygen Saturation 99% 04/19/2024 8:05 AM SUSTAINABILITY COORDINATOR Inhaled Oxygen Concentration - - Weight 49 kg (108 lb) 04/17/2024 6:45 AM SUSTAINABILITY COORDINATOR Height 162.6 cm (5' 4 ) 03/21/2024 1:20 PM SUSTAINABILITY COORDINATOR Body Mass Index 18.54 03/21/2024 1:20 PM SUSTAINABILITY COORDINATOR Plan of Treatment Not on file Medical Devices Implanted Type Area Petrography Teacher Device Identifier Shelf Expiration Date Model / Serial / Lot [employer] Graft Bone Magnetos 10cc 1-2mm Granules In Moldable Putty 703-038-Us - [id number] Implanted:Qty : 1 on 04/17/2024 by Alex Zavala MD at [facility] N/A: Spine Lumbar [employer] [id number] 11/24/2028 703-038-U S / / [id number] 185mm Rods Implanted:Qty : 2 on 04/17/2024 by Alex Zavala MD at [facility] N/A: Spine Lumbar [employer] [id number] / / [employer] Graft Bone Magnetos 10cc 1-2mm Granules In Moldable Putty [id number] - [id number] Implanted:Qty : 1 on 04/17/2024 by Alex Zavala MD at [facility] N/A: Spine Lumbar [employer] [id number] 11/24/2028 703-038-U S / / [id number] [employer] Spinal Implants Cage Spinal Lumbar 0 Degree Plif Forza [id number] Titanium 38-2007 - [id number] Implanted:Qty : 1 on 04/17/2024 by Alex Zavala MD at [facility] N/A: Spine Lumbar [employer] Spinal Implants [id number] / / 5.5 X 45 Screw Implanted:Qty : 3 on 04/17/2024 by Alex Zavala MD at [facility] N/A: Spine Lumbar [employer] [id number] / / 5.5 X 50 Screw Implanted:Qty : 1 on 04/17/2024 by Alex Zavala MD at [facility] N/A: Spine Lumbar [employer] [id number] / / 6.5 X 50 Screw Implanted:Qty : 4 on 04/17/2024 by Alex Zavala MD at [facility] N/A: Spine Lumbar [employer] [id number] / / Post Clips Implanted:Qty : 7 on 04/17/2024 by Alex Zavala MD at [facility] N/A: Spine Lumbar [employer] [id number] / / Post Nuts Implanted:Qty : 8 on 04/17/2024 by Alex Zavala MD at [facility] N/A: Spine Lumbar [employer] [id number] / / Large Open Offset Connector Implanted:Qty : 1 on 04/17/2024 by Alex Zavala MD at [facility] N/A: Spine Lumbar [employer] [id number] / / Procedures Procedure Name Priority Date/Time Associated Diagnosis Comments CT LUMBAR SPINE WO CONTRAST Schedule Routine, Read Routine (OP Routine) 05/26/2024 4:02 PM SUSTAINABILITY COORDINATOR FL FLUOROSCOPY < 1 HOUR IP Routine 04/17/2024 10:53 AM SUSTAINABILITY COORDINATOR DE AN ELECTIVE ENDOTRACHEAL AIRWAY Routine 04/17/2024 8:55 AM SUSTAINABILITY COORDINATOR FUSION LUMBAR - POSTERIOR LAMINAR INTERBODY FUSION 04/17/2024 7:34 AM SUSTAINABILITY COORDINATOR Spinal instabilities of thoracolumbar region Case Notes Thoracic 11-12, Thoracic 12-Lumbar 1, Lumbar 1-2 posterolateral instrumented fusion and Thoracic 12-Lumbar 1 Osteotomy with [employer], CURRICULUM DEVELOPMENT SPECIALIST, C-ARM, Prone Position, Open [place] and Dr Darren Chan assistingPatient preop clearance will be done at [facility] in [facility] any questions please contact Christy Knoxvach at [phone] HEPATITIS C ANTIBODY Routine 07/14/2023 5:54 PM CDT PAP AND HPV, REFLEX TO HPV GENOTYPES Routine 03/02/2023 5:26 PM SUSTAINABILITY COORDINATOR Encounter for supervision of normal in first trimester, unspecified 11 weeks gestation of from Last 3 Months or Most Recently Relevant to Health Maintenance Results * CT Lumbar Spine WO Contrast (05/26/2024 4:02 PM SUSTAINABILITY COORDINATOR) Anatomical Region Laterality Modality Spine N/A Computed Tomogra phy Historical Provider MD JACOBS CT PROCEDURES Final R esult * FL Fluoroscopy < 1 Hour (04/17/2024 10:53 AM SUSTAINABILITY COORDINATOR) Narrative [facility] - 04/17/2024 10:53 AM SUSTAINABILITY COORDINATOR The images from this study are not interpreted by Radiology. Please refer to the physician's procedure / OR operative note. Alex JACOBS FLUOROSCOPY PROCEDUR ES Final Result [facility] * DE AN ELECTIVE ENDOTRACHEAL AIRWAY (04/17/2024 8:55 AM SUSTAINABILITY COORDINATOR) Narrative Cynthia Flores CRNA - 04/17/2024 8:55 AM SUSTAINABILITY COORDINATOR Cynthia Flores CRNA 04/17/2024 8:56 AM Airway Patient location: OR Urgency: elective Indications for airway management: anesthesia Difficult airway: no Staff: Supervising provider: Edmund Camacho DO Placed by: LEAD HOUSEKEEPER: Cynthia Flores CRNA Emergent airway documentation: Risks [...] antibody Blood (07/14/2023 5:54 PM CDT) Pathologist [facility] Hep C Ab Nonreactive Nonreactive Comment:Antibodies to HCV no t detected. Does NOT exclude the possibility of recent exposure to HCV. Current interpretive data was last revised on 21 Blood 07/14/2023 5:54 PM CDT 07/14/2023 6:25 PM CDT us Ricarda Jensen MD LAB MICROBIOLOGY - GENERAL ORDERABLES Final Result [facility] [place] [address] * Pap and HPV, reflex to HPV Genotypes (03/02/2023 5:26 PM SUSTAINABILITY COORDINATOR) CLINICAL INFORMATION: [facility] Comment: CARE LMP [facility] Comment:12/13/22 Previous Pap [facility] Comment:NONE GIVEN Prev. Bx [facility] Comment:NONE GIVEN SOURCE: [facility] Comment:Cervix, Endocervix Pap, specimen adequacy [facility] Comment: Satisfactory for evaluation. Endocervical/transformation zone component present. HPV interp [facility] Comment: Cytology Results: Negative for intraepithelial lesion or malignancy. State Appellate Clerk [facility] Comment: BES, CT(ASCP) CT screening location: [place] [address] [place] [address] Comment [facility] Comment: EXPLANATORY NOTE: The Pap is a [...] Client Letter) showing TIS test codes, see [email or web address]/Resources, and navigate to Well-Woman>Physician Materials>TIS Client Letter. You can also call for test code assistance. Human papillomavirus DNA, High Risk E6/E7 Not Detected NOT DETECTED [employer] [facility] Comment: Not Detected High Risk HPV types (16,18,31,33,35,39,45,51,52, 56,58,59,66,68) were not detected. Other HPV types which cause anogenital lesions may be present. The significance of the other types of HPV in malignant processes has not been established. Methodology: Real Time PCR Thin prep 03/02/2023 5:26 PM SUSTAINABILITY COORDINATOR 03/03/2023 4:39 AM SUSTAINABILITY COORDINATOR Chloe Page MD LAB CYTOLOGY ORDERA BLES Final Result [facility] [address] [place] [address] [facility] [address] [place] [address] from Last 3 Months or Most Recently Relevant to Health Maintenance Insurance Advance Directives For more information, please contact: [phone] * Full Code (Latest Code Status on File) Date Activated Date Inactivated Comments 04/17/2024 12:53 PM 04/19/2024 4:01 PM * Full Code Date Activated Date Inactivated Comments 07/27/2023 2:49 PM 07/28/2023 7:33 PM * Full Code Date Activated Date Inactivated Comments 07/14/2023 2:46 PM 07/27/2023 2:49 PM Full CPR in c ase of cardiopulmonary arrest Care Teams Metal Checker Relationship Specialty Start Date End Date Tanner Corbett MD [address] [place] [address] PCP - General Family Medicine 03/25/22 Teo Dukes MD [address] [place] [address] Referring Physician Psychiatry 03/27/22 Alex Zavala MD [address] [place] [address] Consulting Physician Neurosurgery 01/12/23 Arturo Briceño MD [address] [place] [address] Referring Physician Obstetrics and Gynecology 04/05/23 Lewis Grossman MD [address] [facility] [place] [address] Referring Physician Pain Management 01/19/24
== END 2024-07-04 09:12 | disposition home or self-care (01) ==
PROVIDERS: PCP Family Medicine; Visit Provider Neurological Surgery
DX: M53.2X5 Spinal instabilities, thoracolumbar region (principal); M54.17 Radiculopathy, lumbosacral region
CPT/HCPCS: 72148

== ENCOUNTER 2024-07-25 09:46 | Day surgery (SDC) | payer OTHER, SELFPAY ==
[2024-07-04 12:58] VITALS: BMI 18.5
--- NOTE | ~2024-07-25 | XR_ITS ---
INTRAOPERATIVE FLUOROSCOPY: CLINICAL HISTORY: 33 years old Female; DIAG/THERAPEUTIC DIRK INTRA-ARTICULAR SI JT STEROID INJ PROCEDURE COMMENTS: Limited intraoperative fluoroscopy of the pelvis was performed. CUMULATIVE DOSE: 8 mGy FLUOROSCOPY TIME: 51 seconds FINDINGS/IMPRESSION: Please refer to operative note for further details. Reviewed, dictated and finalized at location A.
[2024-07-25 10:48] VITALS: BMI 19.3
--- NOTE | 2024-07-25 10:50 | WPDHPUPDATE1 ---
History and Physical Update Update Date/Time: 07/25/24 10:50 History and Physical has been reviewed, including an updated exam of the patient. There are NO changes in the patient's condition. Risks, benefits, and alternatives have been discussed and questions answered. Patient agrees to proceed with procedure.
[2024-07-25 10:51] VITALS: BP 112/80; PULSE 95; RESP 16; TEMP 37; O2SAT 99
--- NOTE | 2024-07-25 10:51 | P.OP_ITS ---
Procedure Note - Detailed Date of Procedure 07/25/24 Pre-op Diagnosis Sacroiliitis, chronic low back pain Post-op Diagnosis Same Procedure Performed Bilateral Sacroiliac Joint Steroid Injection under Fluoroscopic Guidance and with Contrast Control. Surgeon Lewis Grossman MD Observation Assistant None Anesthesia Local Description of Procedure INFORMED CONSENT: Risks, benefits and alternatives to the procedure were discussed in detail with the patient who expressed explicit understanding and consent to proceed. Patient was informed verbally and in written form regarding the risks associated with the procedure including the low risk of serious infection, bleeding/bruising, allergic reaction, nerve or organ injury, paralysis, procedural site pain or discomfort, worsening pain and/or mobility, failure to treat and/or disfigurement. The patient expressed explicit understanding and consent to proceed. All materials required for the procedure were available prior to procedure start. Site and side were marked prior to procedure and confirmed in the presence of the patient. PROCEDURE IN DETAIL: The patient was brought to the procedural suite and placed in the prone position. Patient was made comfortable with use of pillows under the head/chest, hips and ankles. Skin overlying the injection site on the affected side(s) was prepared broadly with ChloraPrep applicator and draped in a sterile manner. Aseptic technique was used throughout. The right SI joint was identified in the AP view and contralateral oblique angulation with caudal tilt was utilized to optimize visualization of the inferior and medial joint line representing the posterior portion of the joint. Local anesthesia was established by infiltration with approximately 5 mL of 2% lidocaine via a 1-1/2 inch 27-gauge needle. A 22-gauge 3.5 inch Quincke spinal needle was advanced until the needle entered the inferior third of the joint space approximately 1cm cephalad from its most inferior point. In the AP view, 0.5 mL of Omnipaque 300 contrast medium was injected after negative aspiration for CSF, blood or other bodily fluid, showing appropriate intra-articular spread of contrast without evidence of intravascular, perineural or intrathecal placement. A 1.5 mL solution containing 3 mg of betamethasone in 0.5% PF bupivacaine was injected after repeat negative aspiration. Appropriate spread of the injectate was confirmed with washout of previous injected contrast. No parasthesias were elicited. Needle was removed completely intact without difficulty. The same exact procedure was repeated for all remaining levels on the contralateral side, left SI joint, modified as necessary to accommodate for the new target location with identical findings/results and no evidence of complication. Images were saved and documented in the patient chart. Patient's skin was cleansed and sterile bandage applied. The patient tolerated the procedure well. The patient was transported to the recovery area in stable condition where they were observed for an appropriate amount of time prior to discharge, without evidence of complication. The patient was instructed to avoid excessive activity for the next 48 hours, including climbing and frequent use of stairs. Showers only for 48 hours. They were instructed not to drive or operate heavy machinery for 24 hours. They are to monitor for severe headaches, fevers, chills, night sweats, erythema/swelling at the site or any other signs of infection, bleeding/bruising, bowel or bladder changes as well as new pain, weakness or numbness in the upper or lower extremity. Should they notice these changes, they are instructed to call our office immediately or report directly to the nearest Emergency Department if no answer or if after posted office hours. COMPLICATIONS: None COMMENTS: None CONTRAST WASTED: 29mL Omnipaque 300. Complications No immediate complications Condition Stable Disposition Same day [facility] Billing Surgery - Charge Forward: Surgery Billing
[2024-07-25 11:02] VITALS: BP 137/82; PULSE 122; RESP 20; O2SAT 100
[2024-07-25 11:05] VITALS: BP 129/82; PULSE 96; RESP 18; O2SAT 98
[2024-07-25] MEDS: BUPivacaine HCL 0.5% 10 ML AMP 2 ML INFILTRATE (11:07)
[2024-07-25] MEDS: BETAMETHASONE SODIUM PHOSPHATE PF INJ 6 MG/ML VIAL INFILTRATE (11:07)
[2024-07-25 11:08] VITALS: BP 132/84; PULSE 106; RESP 20; O2SAT 98
[2024-07-25] MEDS: LIDOCAINE 1% PF INJ 5 ML VIAL INFILTRATE (11:10)
[2024-07-25 11:14] VITALS: BP 120/78; PULSE 83; RESP 18; O2SAT 100
--- OUTSIDE RECORDS SUMMARY | 2024-07-25 11:26 | XMS_ITS | Clinical Summary ---
Author Organization [facility] Address [address] [place] [address] Phone Care Team Providers Care Distribution Technician Name Role Phone Tanner Corbett MD Primary Care Provider [phone] Teo Dukes MD Unavailable Alex Zavala MD Unavailable [phone] Arturo Briceño MD Unavailable [phone] Lewis Grossman MD Unavailable [phone] Allergies Active Allergy Reactions Criticality Noted [...] # Disposition: Follow up task sent to [facility] scheduling pool. Desires discharge home today. [...] preeclampsia Assessment & Plan (03/02/2023 3:14 PM RADIO MECHANIC APPRENTICE): To 24 hour urine To cmp Tobacco dependence 03/02/2023 Assessment & Plan (03/02/2023 3:36 PM RADIO MECHANIC APPRENTICE): The patient was encouraged to stop smoking. Techniques for smoking cessation were discussed to the patient's level of interest. Marijuana smoker 03/02/2023 Assessment & Plan (03/02/2023 3:52 PM RADIO MECHANIC APPRENTICE): The patient was instructed to stop smoking marijuana as it is bad for the baby's brain development. LFT elevation 01/12/2023 Overview (01/12/2023): Rechecking today Assessment & Plan (03/02/2023 3:59 PM RADIO MECHANIC APPRENTICE): To cmp Assessment & Plan (01/12/2023 4:55 PM CDT): I do not have the labs from [facility] as of yet, but will recheck the [...] 05/26/2022 Assessment & Plan (03/02/2023 3:12 PM RADIO MECHANIC APPRENTICE): She will need anesthesia consult. She sees [...] 04/15 Assessment & Plan (04/15/2022 1:34 PM RADIO MECHANIC APPRENTICE): Checking RF and inflammatory marker, given reports [...] 03/27/2022 Assessment & Plan (03/02/2023 3:58 PM RADIO MECHANIC APPRENTICE): Will see if the atarax helps so that she can get off the clonezapam We discussed risk of defects and addiction. Assessment & Plan (03/27/2022 3:04 PM RADIO MECHANIC APPRENTICE): Patient follows with Dr. Dukes (psych) Notalgia [...] Encounters Date Type Department Care Team Description 07/05/2024 Orders Only [facility] Medical Group Primary Care at [address] [phone] Alex Zavala MD 05/30/2024 Orders Only [facility] Medical Group Primary Care at [address] [id number] Bernabe Hernandez MD 05/22/2024 Telephone [facility] Accountable Care Organization [address] [place], [place] [id number] Palmira Connell MA Successful Phone Call (AWV SCHEDULING) from Last 3 Months Immunizations Immunization Administration [...] Neg Hx no colon, breas t or combine operator cancer cmt 03/02/23 Relation Name Status Comments Brother 1 Jaylon Brother 2 Jaylon Brother 3 Father Simeon Alive Mother Vita Alive Social History Tobacco Use Types Packs/Day Years Used Date Smoking Tobacco: Some Days Cigarettes 0.2 15 Passive Smoke Exposure: Current Smokeless Tobacco: Never Tobacco Cessation:Ready to Q uit: Yes; Counseling Given: Not Answered [facility] Utilities Answer Date Recorded In the past 12 months has e [employer], [employer], or water [employer] threatened to shut off services in your [...] often do you attend chur ch or jewish services? Never 04/15/2024 Do you belong to any clubs o r organizations such as mormonism groups, unions, fraternal or athletic groups, or [...] place to sleep or slept in a longterm (including now)? No 07/15/2023 Housing Stability Vital Sign Answer Steve e Recorded In the last 12 months, was t here a time when you were not able to pay the mortgage or rent on time? No 04/15/2024 In the past 12 months, how m any times have you moved where you were living? 1 04/15/2024 At any time in the past [address] [facility], were you homeless or living in a longterm (including now)? No 04/15/2024 Personal Safety Answer Date Recorded Have you ever been in or are you currently in a harmful physical or emotional relationship or is someone making you feel afraid or unsafe? Denies 04/17/2024 Comments No Sex and Gender Information Value Date Recorded Sex Assigned at Not on file Legal Sex Female 9:11 PM RADIO MECHANIC APPRENTICE Gender Identity Female 03/26/2022 10:12 AM RADIO MECHANIC APPRENTICE Sexual Orientation Not on file Obstetrics History [...] Saran Louis, Kathy aparicio MD Complications:None Delivery Location:[facility] Main [facility] ([facility] 58LD) Comments H/o pih. She was induced for this at 37 weeks. She was already 3-4 cm Also had intrahepatic cholestasis of . Started late second trimester She doesn't remember if her labs were abnl. Last Filed Vital Signs Vital Sign Reading Time Taken Comments Blood Pressure 126/78 04/19/2024 8:05 AM RADIO MECHANIC APPRENTICE Pulse 88 04/19/2024 8:05 AM RADIO MECHANIC APPRENTICE Temperature 37.5 C (99.5 F) 04/19/2024 8:05 AM RADIO MECHANIC APPRENTICE Respiratory Rate 18 04/19/2024 3:45 AM RADIO MECHANIC APPRENTICE Oxygen Saturation 99% 04/19/2024 8:05 AM RADIO MECHANIC APPRENTICE Inhaled Oxygen Concentration - - Weight 49 kg (108 lb) 04/17/2024 6:45 AM RADIO MECHANIC APPRENTICE Height 162.6 cm (5' 4 ) 03/21/2024 1:20 PM RADIO MECHANIC APPRENTICE Body Mass Index 18.54 03/21/2024 1:20 PM RADIO MECHANIC APPRENTICE Plan of Treatment Health Maintenance Due Date Last Done Comments Hepatitis B Screening 11/22/2009 Regular Well Visit/Exam 18-64 11/22/2009 Pneumococcal vaccine <65 (1 of 2 - PCV) 11/22/2010 Cervical Cancer Screening 03/02/2024 03/02/2023 Influenza Vaccine (Season Ended) 2024 Depression Screening 01/18/2025 01/19/2024, 04/05/2023, 02/02/2023, Additional history exists DTaP/Tdap/Td Vaccine (3 - Td or Tdap) 07/21/2033 07/22/2023, 02/13/2020 Hepatitis C Screening Completed 07/14/2023, 015 Varicella Vaccines Discontinued 07/28/2023 HPV Vaccines Aged Out No longer eligi ble based on patient's age to complete this topic Medical Devices Implanted Type Area Market Specialist Device Identifier Shelf Expiration Date Model / Serial / Lot [employer] Graft Bone Magnetos 10cc 1-2mm Granules In Moldable Putty 703-038-Us - [id number] Implanted:Qty : 1 on 04/17/2024 by Alex Zavala MD at [facility] N/A: Spine Lumbar [employer] [id number] 11/24/2028 703-038-U S / / [id number] 185mm Rods Implanted:Qty : 2 on 04/17/2024 by Alex Zavala MD at [facility] N/A: Spine Lumbar [employer] [id number] / / [employer] Graft Bone Magnetos 10cc 1-2mm Granules In Moldable Putty 703-038-Us - [id number] Implanted:Qty : 1 on 04/17/2024 by Alex Zavala MD at [facility] N/A: Spine Lumbar [employer] [id number] 11/24/2028 703-038-U S / / [id number] Orthofix Spinal Implants Cage Spinal Lumbar 0 Degree Plif Forza [id number] Titanium 38-2007sp - [id number] Implanted:Qty : 1 on 04/17/2024 by Alex Zavala MD at [facility] N/A: Spine Lumbar [employer] Spinal Implants [id number] / / 5.5 X 45 Screw Implanted:Qty : 3 on 04/17/2024 by Alex Zavala MD at [facility] N/A: Spine Lumbar [employer] [id number] / / 5.5 X 50 Screw Implanted:Qty : 1 on 04/17/2024 by Alex Zavala MD at [facility] N/A: Spine Lumbar [employer] [id number] / / 6.5 X 50 Screw Implanted:Qty : 4 on 04/17/2024 by Alex Zavala MD at [facility] N/A: Spine Lumbar [employer] [id number] / / Post Clips Implanted:Qty : 7 on 04/17/2024 by Alex Zavala MD at [facility] N/A: Spine Lumbar [employer] [id number] / / Post Nuts Implanted:Qty : 8 on 04/17/2024 by Alex Zavala MD at [facility] N/A: Spine Lumbar [employer] [id number] / / Large Open Offset Connector Implanted:Qty : 1 on 04/17/2024 by Alex Zavala MD at [facility] N/A: Spine Lumbar [employer] [id number] / / Procedures Procedure Name Priority Date/Time Associated Diagnosis Comments MRI LUMBAR SPINE WO CONTRAST Schedule Routine, Read Routine (OP Routine) 07/04/2024 7:[address] LUMBAR SPINE WO CONTRAST Schedule Routine, Read Routine (OP Routine) 05/26/2024 4:02 PM RADIO MECHANIC APPRENTICE HEPATITIS C ANTIBODY Routine 07/14/2023 5:54 PM CDT PAP AND HPV, REFLEX TO HPV GENOTYPES Routine 03/02/2023 5:26 PM RADIO MECHANIC APPRENTICE Encounter for supervision of normal in first trimester, unspecified 11 weeks gestation of from Last 3 Months or Most Recently Relevant to Health Maintenance Results * MRI Lumbar Spine WO Contrast (07/04/2024 7:57 AM CDT) Anatomical Region Laterality Modality Spine N/A Magnetic Resonan ce Alex Zavala MD IMG MRI PROCEDURES Final Result * CT Lumbar Spine WO Contrast (05/26/2024 4:02 PM RADIO MECHANIC APPRENTICE) Anatomical Region Laterality Modality Spine N/A Computed Tomogra phy Historical Provider IMG CT PROCEDURES Final R esult * Hepatitis C antibody Blood (07/14/2023 5:54 PM CDT) Hep C Ab Nonreactive Nonreactive Comment:Antibodies to HCV no t detected. Does NOT exclude the possibility of recent exposure to HCV. Current interpretive data was last revised on 21 Blood 07/14/2023 5:54 PM CDT 07/14/2023 6:25 PM CDT Ricarda Jensen MD LAB MICROBIOLOGY - GENERAL ORDERABLES Final Result [facility] [place] [address] * Pap and HPV, reflex to HPV Genotypes (03/02/2023 5:26 PM RADIO MECHANIC APPRENTICE) CLINICAL INFORMATION: [facility] Comment: CARE LMP [facility] Comment:12/13/22 Previous Pap [facility] Comment:NONE GIVEN Prev. Bx [facility] Comment:NONE GIVEN SOURCE: [facility] Comment:Cervix, Endocervix Pap, specimen adequacy [facility] Comment: Satisfactory for evaluation. Endocervical/transformation zone component present. HPV interp [facility] Comment: Cytology Results: Negative for intraepithelial lesion or malignancy. Certified Physician Assistant Que [facility] Comment: BES, CT(ASCP) CT screening location: [place] [address] [place] [address] Comment [facility] Comment: EXPLANATORY NOTE: The Pap [...] Client Letter) showing TIS test codes, see www.Aviacomm/Resources, and navigate to Well-Woman>Physician Materials>TIS Client Letter. You can also call for test code assistance. Human papillomavirus DNA, High Risk E6/E7 Not Detected NOT DETECTED [facility] Comment: Not Detected High Risk HPV types (16,18,31,33,35,39,45,51,52, 56,58,59,66,68) were not detected. Other HPV types which cause anogenital lesions may be present. The significance of the other types of HPV in malignant processes has not been established. Methodology: Real Time PCR Thin prep 03/02/2023 5:26 PM RADIO MECHANIC APPRENTICE 03/03/2023 4:39 AM RADIO MECHANIC APPRENTICE Chloe Page MD LAB CYTOLOGY ORDERA BLES Final Result [facility] [address] [place] [address] [facility] [address] [place] [address] from Last 3 Months or Most Recently Relevant to Health Maintenance Insurance Advance Directives For more information, please contact: [phone] * Full Code (Latest Code Status on File) Date Activated Date Inactivated Comments 04/17/2024 12:53 PM 04/19/2024 4:01 PM * Full Code Date Activated Date Inactivated Comments 07/27/2023 2:49 PM 07/28/2023 7:33 PM * Full Code Date Activated Date Inactivated Comments 07/14/2023 2:46 PM 07/27/2023 2:49 PM Full CPR in c ase of cardiopulmonary arrest Care Teams Distribution Technician Relationship Specialty Start Date End Date Tanner Corbett MD [address] [place] [address] PCP - General Family Medicine 03/25/22 Teo Dukes MD [address] [place] [address] Referring Physician Psychiatry 03/27/22 Alex Zavala MD [address] [facility] [address] [place] [address] Consulting Physician Neurosurgery 01/12/23 Arturo Briceño MD [address] [place] [address] Referring Physician Obstetrics and Gynecology 04/05/23 Lewis Grossman MD [address] [facility] [place] [address] Referring Physician Pain Management 01/19/24
--- OUTSIDE RECORDS SUMMARY | 2024-07-25 11:26 | XMS_ITS | Referral Summary ---
Author Organization [facility] Address [address] [place] [address] Phone Care Team Providers Care Freight Checker Name Role Phone Tanner Corbett MD Primary Care Provider [phone] Teo Dukes MD Unavailable Alex Zavala MD Unavailable [phone] Arturo Briceño MD Unavailable [phone] Lewis Grossman MD Unavailable [phone] Encounters Date Type Department Care Team Description 07/05/2024 Orders Only [facility] Medical Group Primary Care at [address] [phone] Alex Zavala MD 05/30/2024 Orders Only [facility] Medical Group Primary Care at [address] [phone] ProviderBernabe MD 05/22/2024 Telephone [facility] Accountable Care Organization [address] [place] [address] Palmira Cnonell MA Successful Phone Call (AWV SCHEDULING) from Last 3 Months Allergies Active Allergy [...] # Disposition: Follow up task sent to [facility] scheduling pool. Desires discharge home today. [...] preeclampsia Assessment & Plan (03/02/2023 3:14 PM SURGICAL PRODUCT SALES CONSULTANT): To 24 hour urine To cmp Tobacco dependence 03/02/2023 Assessment & Plan (03/02/2023 3:36 PM SURGICAL PRODUCT SALES CONSULTANT): The patient was encouraged to stop smoking. Techniques for smoking cessation were discussed to the patient's level of interest. Marijuana smoker 03/02/2023 Assessment & Plan (03/02/2023 3:52 PM SURGICAL PRODUCT SALES CONSULTANT): The patient was instructed to stop smoking marijuana as it is bad for the baby's brain development. LFT elevation 01/12/2023 Overview (01/12/2023): Rechecking today Assessment & Plan (03/02/2023 3:59 PM SURGICAL PRODUCT SALES CONSULTANT): To cmp Assessment & Plan (01/12/2023 4:55 PM CDT): I do not have the labs from [place] as of yet, but will recheck the [...] 05/26/2022 Assessment & Plan (03/02/2023 3:12 PM SURGICAL PRODUCT SALES CONSULTANT): She will need anesthesia consult. She sees neuro in . To get vaginal delivery clearance in writing To ask him about epidural. To prepare herself for natural child We discussed chuck villareal and [facility]. To continue with her PT Assessment & Plan (07/23/2022 2:24 PM CDT): Pain drastically improved since surgery, obviously still not 100% with recovery ongoing. Has follow up on 08/03/[address] Zavala. Acute midline low back pain without sciatica Compression fracture of L1 lumbar vertebra 04/15 Assessment & Plan (04/15/2022 1:34 PM SURGICAL PRODUCT SALES CONSULTANT): Checking RF and inflammatory marker, given reports [...] 03/27/2022 Assessment & Plan (03/02/2023 3:58 PM SURGICAL PRODUCT SALES CONSULTANT): Will see if the atarax helps so that she can get off the clonezapam We discussed risk of defects and addiction. Assessment & Plan (03/27/2022 3:04 PM SURGICAL PRODUCT SALES CONSULTANT): Patient follows with Dr. Dukes (psych) Notalgia [...] Q uit: Yes; Counseling Given: Not Answered [facility] Utilities Answer Date Recorded In the [...] often do you attend chur ch or hoahaoism services? Never 04/15/2024 Do you belong to any clubs o r organizations such as roman catholic groups, unions, fraternal or athletic groups, or [...] to sleep or slept in a senior care (including now)? No 07/15/2023 Housing Stability Vital Sign Answer Steve e Recorded In the last 12 months, was t here a time when you were not able to pay the mortgage or rent on time? No 04/15/2024 In the past 12 months, how m any times have you moved where you were living? 1 04/15/2024 At any time in the past [address] [facility], were you homeless or living in a senior care (including now)? No 04/15/2024 Personal Safety Answer Date Recorded Have you ever been in or are you currently in a harmful physical or emotional relationship or is someone making you feel afraid or unsafe? Denies 04/17/2024 Comments No Sex and Gender Information Value Date Recorded Sex Assigned at Not on file Legal Sex Female 9:11 PM SURGICAL PRODUCT SALES CONSULTANT Gender Identity Female 03/26/2022 10:12 AM SURGICAL PRODUCT SALES CONSULTANT Sexual Orientation Not on file Last Filed Vital Signs Vital Sign Reading Time Taken Comments Blood Pressure 126/78 04/19/2024 8:05 AM SURGICAL PRODUCT SALES CONSULTANT Pulse 88 04/19/2024 8:05 AM SURGICAL PRODUCT SALES CONSULTANT Temperature 37.5 C (99.5 F) 04/19/2024 8:05 AM SURGICAL PRODUCT SALES CONSULTANT Respiratory Rate 18 04/19/2024 3:45 AM SURGICAL PRODUCT SALES CONSULTANT Oxygen Saturation 99% 04/19/2024 8:05 AM SURGICAL PRODUCT SALES CONSULTANT Inhaled Oxygen Concentration - - Weight 49 kg (108 lb) 04/17/2024 6:45 AM SURGICAL PRODUCT SALES CONSULTANT Height 162.6 cm (5' 4 ) 03/21/2024 1:20 PM SURGICAL PRODUCT SALES CONSULTANT Body Mass Index 18.54 03/21/2024 1:20 PM SURGICAL PRODUCT SALES CONSULTANT Plan of Treatment Not on file Medical Devices Implanted Type Area Automotive Glass Installer Device Identifier Shelf Expiration Date Model / Serial / Lot [employer] Graft Bone Magnetos 10cc 1-2mm Granules In Moldable Putty 703-038-Us - [id number] Implanted:Qty : 1 on 04/17/2024 by Alex Zavala MD at [facility] N/A: Spine Lumbar [employer] [id number] 11/24/2028 703-038-U S / / [id number] 185mm Rods Implanted:Qty : 2 on 04/17/2024 by Alex Zavala MD at [facility] N/A: Spine Lumbar [employer] [id number] / / [employer] Graft Bone Magnetos 10cc 1-2mm Granules In Moldable Putty 703-038-Us - [id number] Implanted:Qty : 1 on 04/17/2024 by Alex Zavala MD at [facility] N/A: Spine Lumbar [employer] [id number] 11/24/2028 703-038-U S / / [id number] Orthofix Spinal Implants Cage Spinal Lumbar 0 Degree Plif Forza [id number] Titanium 38-2007sp - [id number] Implanted:Qty : 1 on 04/17/2024 by Alex Zavala MD at [facility] N/A: Spine Lumbar [employer] Spinal Implants [id number] / / 5.5 X 45 Screw Implanted:Qty : 3 on 04/17/2024 by Alex Zavala MD at [facility] N/A: Spine Lumbar [employer] [id number] / / 5.5 X 50 Screw Implanted:Qty : 1 on 04/17/2024 by Alex Zavala MD at [facility] N/A: Spine Lumbar [employer] [id number] / / 6.5 X 50 Screw Implanted:Qty : 4 on 04/17/2024 by Alex Zavala MD at [facility] N/A: Spine Lumbar [employer] [id number] / / Post Clips Implanted:Qty : 7 on 04/17/2024 by Alex Zavala MD at [facility] N/A: Spine Lumbar [employer] [id number] / / Post Nuts Implanted:Qty : 8 on 04/17/2024 by Alex Zavala MD at [facility] N/A: Spine Lumbar [employer] [id number] / / Large Open Offset Connector Implanted:Qty : 1 on 04/17/2024 by Alex Zavala MD at [facility] N/A: Spine Lumbar [employer] [id number] / / Procedures Procedure Name Priority Date/Time Associated Diagnosis Comments MRI LUMBAR SPINE WO CONTRAST Schedule Routine, Read Routine (OP Routine) 07/04/2024 7:[address] LUMBAR SPINE WO CONTRAST Schedule Routine, Read Routine (OP Routine) 05/26/2024 4:02 PM SURGICAL PRODUCT SALES CONSULTANT HEPATITIS C ANTIBODY Routine 07/14/2023 5:54 PM CDT PAP AND HPV, REFLEX TO HPV GENOTYPES Routine 03/02/2023 5:26 PM SURGICAL PRODUCT SALES CONSULTANT Encounter for supervision of normal in first trimester, unspecified 11 weeks gestation of from Last 3 Months or Most Recently Relevant to Health Maintenance Results * MRI Lumbar Spine WO Contrast (07/04/2024 7:57 AM CDT) Anatomical Region Laterality Modality Spine N/A Magnetic Resonan ce Alex Zavala MD IMG MRI PROCEDURES Final Result * CT Lumbar Spine WO Contrast (05/26/2024 4:02 PM SURGICAL PRODUCT SALES CONSULTANT) Anatomical Region Laterality Modality Spine N/A Computed [...] LAB MICROBIOLOGY - GENERAL ORDERABLES Final Result Performing Organization Address City/State/[facility] Co de Phone Number [facility] Department [place] [address] * Pap and HPV, reflex to HPV Genotypes (03/02/2023 5:26 PM SURGICAL PRODUCT SALES CONSULTANT) CLINICAL INFORMATION: [facility] Comment: CARE LMP [facility] Comment:12/13/22 [facility] Comment:NONE GIVEN Prev. Bx [facility] Comment:NONE GIVEN SOURCE: [facility] Comment:Cervix, Endocervix Pap, specimen adequacy [facility] Comment: Satisfactory for evaluation. Endocervical/transformation zone component present. HPV interp [facility] Comment: Cytology Results: Negative for intraepithelial lesion or malignancy. Track Walker Que [facility] Comment: BES, CT(ASCP) CT screening location: [place] [address] [place] [address] Comment [facility] Comment: EXPLANATORY NOTE: The Pap is [...] Client Letter) showing TIS test codes, see www.[employer] Found!/Resources, and navigate to Well-Woman>Physician Materials>TIS Client Letter. You can also call for test code assistance. Human papillomavirus DNA, High Risk E6/E7 Not Detected NOT DETECTED [facility] Comment: Not Detected High Risk HPV types (16,18,31,33,35,39,45,51,52, 56,58,59,66,68) were not detected. Other HPV types which cause anogenital lesions may be present. The significance of the other types of HPV in malignant processes has not been established. Methodology: Real Time PCR Thin prep 03/02/2023 5:26 PM SURGICAL PRODUCT SALES CONSULTANT 03/03/2023 4:39 AM SURGICAL PRODUCT SALES CONSULTANT Chloe Page MD LAB CYTOLOGY ORDERA BLES Final Result [facility] [address] [place] [address] [facility] [address] [facility] [place] [address] from Last 3 Months or Most Recently Relevant to Health Maintenance Insurance [facility] Advance Directives For more information, please contact: [phone] * Full Code (Latest Code Status on File) Date Activated Date Inactivated Comments 04/17/2024 12:53 PM 04/19/2024 4:01 PM * Full Code Date Activated Date Inactivated Comments 07/27/2023 2:49 PM 07/28/2023 7:33 PM * Full Code Date Activated Date Inactivated Comments 07/14/2023 2:46 PM 07/27/2023 2:49 PM Full CPR in c ase of cardiopulmonary arrest Care Teams Freight Checker Relationship Specialty Start Date End Date Tanner Corbett MD [address] [place] [id number] PCP - General Family Medicine 03/25/22 Teo Dukes MD [address] [place] [address] Referring Physician Psychiatry 03/27/22 Alex Zavala MD [address] [facility] [address] [place] [address] Consulting Physician Neurosurgery 01/12/23 Arturo Briceño MD [address] [facility] [address] [facility] [address] [place] [address] Referring Physician Obstetrics and Gynecology 04/05/23 Lewis Grossman MD [address] [place] [address] [place] [address] Referring Physician Pain Management 01/19/24
== END 2024-07-25 11:30 | disposition home or self-care (01) ==
PROVIDERS: PCP Family Medicine; Visit Provider Anesthesiology Pain Medicine
PROC: (CPT 27096; principal; 2024-07-25 11:45)
DX: M46.1 Sacroiliitis, not elsewhere classified (principal); M54.50 Low back pain, unspecified; G89.29 Other chronic pain
CPT/HCPCS: 27096; 99199; G0260

== ENCOUNTER 2024-09-05 09:27 | Day surgery (SDC) | payer OTHER, SELFPAY ==
[2024-08-21 08:27] VITALS: BMI 19.5
--- NOTE | ~2024-09-05 | XR_ITS ---
EXAMINATION: XR fluoroscopy no charge DATE: 09/05/2024 10:35 CDT INDICATION: DIAG/PROG DIRK T8,T9,T10 MED BRANCH BLK #1 . TECHNIQUE: 9 fluoroscopic images of the thoracic spine were obtained during diagnostic/prognostic dirk ateral T8, T9, and T10 medial branch blocks, performed by Lewis Grossman MD. I was not present duri ng the procedure. Fluoroscopy exposure time was 65.7 seconds. Air Kerma 7.51 mGy. COMPARISON: None FINDINGS/IMPRESSION: Fluoroscopic documentation of diagnostic/prognostic bilateral T8, T9, and T10 medial branch blocks. P lease refer to the operative note for complete procedural details . Reviewed, dictated and finalized at location K.
--- NOTE | 2024-09-05 09:49 | WPDHPUPDATE1 ---
History and Physical Update Update Date/Time: 09/05/24 09:49 History and Physical has been reviewed, including an updated exam of the patient. There are NO changes in the patient's condition. Risks, benefits, and alternatives have been discussed and questions answered. Patient agrees to proceed with procedure.
--- NOTE | 2024-09-05 09:50 | W.PM.PROC2 ---
Procedure Note - Detailed Date of Procedure 09/05/24 Pre-op Diagnosis Thoracic Spine Pain Post-op Diagnosis Same Procedure Performed Diagnostic bilateral Thoracic Medial Branch Nerve Blocks at T8, T9, T10 to Block the bilateral T9-10, T10-11 Facet Joints Under Fluoroscopic Guidance and with Contrast Control (4 levels blocked). Surgeon Lewis Grossman MD Research Development Director None. Anesthesia Local Description of Procedure INFORMED CONSENT: Risks, benefits and alternatives to the procedure were discussed in detail with the patient who expressed explicit understanding and consent to proceed. Patient was informed verbally and in written form regarding the risks associated with the procedure including the low risk of serious infection, bleeding/bruising, allergic reaction, nerve or organ injury, paralysis, procedural site pain or discomfort, worsening pain and/or mobility, failure to treat and/or disfigurement. The patient expressed explicit understanding and consent to proceed. All materials required for the procedure were available prior to procedure start. Site and side were marked prior to procedure and confirmed in the presence of the patient. PROCEDURE IN DETAIL: The patient was brought to the procedural suite and placed in the prone position. Patient was made comfortable with use of pillows under the head/chest, hips and ankles. Skin overlying the injection site on the affected side(s) was prepared broadly with 3ml tinted ChloraPrep applicator and draped in a sterile manner. Aseptic technique was used throughout. The endplates of the vertebral bodies at the site(s) of interest were aligned in the AP view. Ipsilateral oblique angulation was utilized to optimize visualization of the intersection between the superior articulating process and transverse process at each target site. Local anesthesia was established by infiltration with approximately 5 mL of 1% lidocaine via a 1-1/2 inch 27-gauge needle after negative aspiration. A 25-gauge 3.5 inch Quincke spinal needle was advanced until the needle tip contacted periosteum at the target site, right T8. Lateral view was utilized to confirm the appropriate placement of the needle tip just anterior to the facet line and on, but not above or deep to, the superior border the pedicle. In the oblique view, 0.25 mL of Omnipaque 300 contrast medium was injected after negative aspiration for CSF, blood or other bodily fluid, showing appropriate extra-articular spread of contrast without evidence of intravascular, foraminal or intrathecal placement. Position and contrast flow was verified in the AP view. A 0.25 mL solution of 0.5% PF bupivacaine was injected after negative repeat aspiration. Appropriate spread of the injectate was confirmed with washout of previously injected contrast. No parasthesias were elicited. Needle was removed completely intact without difficulty. The same procedure was repeated for all additional intended levels/structures treated on the ipsilateral side, right T9, T10 medial branches, with identical methodology modified to compensate for different location, with similar results and no evidence of complication. The same procedure was repeated for all additional intended levels/structures treated on the contralateral side, left T8, T9, T10 medial branches, with identical methodology modified to compensate for different/contralateral location, with similar results and no evidence of complication. Images were saved and documented in the patient chart. Patient's skin was cleansed and sterile bandage applied. The patient tolerated the entire procedure well. The patient was transported to the recovery area in stable condition where they were observed for an appropriate amount of time prior to discharge, without evidence of complication. Patient was instructed on the appropriate completion of a pain diary over the next 12-24 hours. The patient was instructed to avoid excessive activity for the next 48 hours, including lifting/overhead work. Patient should avoid soaking/submerging the site of injection, taking showers only for the next 48 hours. They were instructed not to drive or operate heavy machinery for 24 hours. They are to monitor for severe headaches, fevers, chills, night sweats, erythema/swelling at the site or any other signs of infection, bleeding/bruising, bowel or bladder changes as well as new pain, weakness or numbness in the upper or lower extremity. Should they notice these changes, they are instructed to call our office immediately or report directly to the nearest Emergency Department if no answer or if after posted office hours. COMPLICATIONS: None COMMENTS: None CONTRAST WASTED: 28.5mL Omnipaque 300. Complications No immediate complications Condition Stable Disposition Same day [facility] Billing Surgery - Charge Forward: Surgery Billing
[2024-09-05 10:12] VITALS: BP 142/101; PULSE 127; RESP 18; TEMP 37.2; O2SAT 100
[2024-09-05 10:39] VITALS: BP 136/82; PULSE 111; RESP 17; O2SAT 99
[2024-09-05 10:46] VITALS: BP 147/96; PULSE 117; RESP 14; O2SAT 98
[2024-09-05 10:52] VITALS: BP 133/91; PULSE 100; RESP 17; O2SAT 98
[2024-09-05] MEDS: BUPivacaine HCL 0.5% 10 ML AMP 5 ML INFILTRATE (10:52)
[2024-09-05] MEDS: LIDOCAINE 1% PF INJ 5 ML VIAL INFILTRATE (10:52)
[2024-09-05 10:57] VITALS: BP 134/88; PULSE 87; RESP 16; O2SAT 100
== END 2024-09-05 11:10 | disposition home or self-care (01) ==
LOC: ASC 09:58
PROVIDERS: PCP Family Medicine; Visit Provider Anesthesiology Pain Medicine
PROC: (CPT 64490; principal; 2024-09-05 11:00)
DX: M54.6 Pain in thoracic spine (principal); M53.2X5 Spinal instabilities, thoracolumbar region; M54.17 Radiculopathy, lumbosacral region; G89.29 Other chronic pain; Z98.1 Arthrodesis status
CPT/HCPCS: 64490 ×2; 64491 ×2; 64492 ×2; 99199

== ENCOUNTER 2024-09-22 09:30 | Outpatient (CLI) | payer MEDICARE, OTHER, SELFPAY ==
--- NOTE | ~2024-09-22 | CT_ITS ---
Noncontrast CT scan of the thoracolumbar spine CLINICAL HISTORY: Spinal instability TECHNIQUE: Axial noncontrast imaging of the thoracolumbar spine was performed. Sagittal and coronal r eformatted images were constructed. Dose reduction technique was used on this scan by utilizing autom ated exposure control and iterative reconstruction technique. The dose-length product (DLP) was 308.2 5 mGy-cm. COMPARISON: MR dated 07/04/2024, CT dated 05/26/2024 FINDINGS: There is posterior fusion hardware from T11 through L3, with bilateral rods and transpedicu lar screws present. There is underlying mild compression fracture deformity of L1, unchanged. Disc fu inez device present at the T12-L1 disc space. Osseous and orthopedic hardware alignment is unchanged from prior exams. At L1-L2, there is mild disc bulge. No definite high-grade canal stenosis. Neural foramina are probab ly preserved. At L2-L3, there is minimal disc bulge. No definite canal stenosis or neural foraminal narrowing. At L3-L4, there is minimal disc bulge. No canal stenosis or neural foraminal narrowing. At L4-L5, there is minimal disc bulge. No canal stenosis or neural foraminal narrowing. L5-S1, there is minimal disc bulge. No canal stenosis or neural foraminal narrowing evident. Intervertebral disc spaces to the thoracic spine appear intact. No canal stenosis or cord compression evident in the thoracic spine. Neural foramina throughout the thoracic spine appear preserved. Paravertebral soft tissues are unremarkable, aside from expected postoperative change. Impression: Posterior fusion from T11 through L3 with underlying chronic, mild L1 compression fracture deformity. Disc fusion cage at the T12-L1 disc space. Minimal degenerative changes in the lumbar spine, as above. Fusion cage present at the T12-L1 disc sp donovan. Reviewed, dictated and finalized at [facility]. Impression: Posterior fusion from T11 through L3 with underlying chronic, mild L1 compressi on fracture deformity. Disc fusion cage at the T12-L1 disc space. Minimal degenerative changes in the lumbar spine, as above. Fusion cage present at the T12-L1 disc space.
== END 2024-09-22 09:31 | disposition home or self-care (01) ==
LOC: ANHIMG 09:31
PROVIDERS: PCP Family Medicine; Visit Provider Neurological Surgery
DX: M53.2X5 Spinal instabilities, thoracolumbar region (principal); M54.17 Radiculopathy, lumbosacral region; Z98.1 Arthrodesis status
CPT/HCPCS: 72128; 72131